=== PATIENT | female | born 1950 | race Caucasian/White ===

== ENCOUNTER 2019-05-27 06:00 | Outpatient (RCR) | payer OTHER, SELFPAY | END 2019-06-26 00:01 | LOC: APT 06:00 | PROVIDERS: Family Provider Nurse Practitioner; Visit Provider Nurse Practitioner Family | DX: R29.6 Repeated falls (principal) | CPT/HCPCS: 97110; 97530 ==

== ENCOUNTER 2019-06-27 06:00 | Outpatient (RCR) | payer OTHER, SELFPAY | END 2019-07-27 23:59 | disposition home or self-care (01) | LOC: APT 06:00 | PROVIDERS: Family Provider Nurse Practitioner; PCP Nurse Practitioner; Visit Provider Nurse Practitioner Family | DX: R29.6 Repeated falls (principal) ==

== ENCOUNTER → 2020-01-28 14:58 | Outpatient (BNVA) | payer OTHER, SELFPAY | PROVIDERS: Family Provider Nurse Practitioner; PCP Nurse Practitioner; Visit Provider Nurse Practitioner Family | DX: I10 Essential (primary) hypertension (principal); E78.5 Hyperlipidemia, unspecified; J44.9 Chronic obstructive pulmonary disease, unspecified; R05 Cough; K21.9 Gastro-esophageal reflux disease without esophagitis; F41.9 Anxiety disorder, unspecified; F32.9 Major depressive disorder, single episode, unspecified | CPT/HCPCS: 71046; 80053; 80061; 84443; 85025 ==

== ENCOUNTER 2020-02-06 10:18 | Outpatient (CLI) | payer OTHER, SELFPAY ==
--- NOTE | 2020-02-06 11:00 | CT_ITS ---
WS: [id number] CT scan of the chest without IV contrast, additional two-dimensional coronal and sagittal reconstruct ion was performed. 02/06/2020 Clinical Data: cough, interstitial prominence Comparison: PA and lateral chest, 01/28/2020. DLP: 957.[address] scans at [facility] use at least one of these dose optimization techniques: automat ed exposure control; mA and/or kV adjustment per patient size (includes targeted exams where dose is matched to clinical indication); or iterative reconstruction. Findings: No nodules, masses or effusions are seen. The heart size is normal with no pericardial effusion. The pulmonary arterial system and thoracic aorta demonstrate no abnormalities or dilatations. There is no axillary or significant mediastinal adenopathy. There is an intramedullary rasta in the left humerus. There is a kyphosis and moderate degenerative change of the thoracic spine. The upper abdomen is not remarkable. CT/CT chest wo con [id number] Impression: Negative for acute cardiopulmonary disease.
== END 2020-02-06 10:19 | disposition home or self-care (01) ==
LOC: RADWPI 10:31
PROVIDERS: Family Provider Nurse Practitioner; PCP Nurse Practitioner; Visit Provider Nurse Practitioner Family
DX: R05 Cough (principal); J84.9 Interstitial pulmonary disease, unspecified
CPT/HCPCS: 71250

== ENCOUNTER 2020-10-27 15:20 | Emergency (ER) | payer OTHER, SELFPAY ==
[2020-10-27 15:22] VITALS: BP 144/71; PULSE 72; RESP 16; O2SAT 95
--- NOTE | 2020-10-27 15:35 | ED_ITS ---
HPI - Weakness General: Chief complaint: Weakness Stated complaint: left leg injury recent falls Time Seen by Provider: 10/27/20 15:34 History of Present Illness: HPI Narrative: Patient was referred to the ER because of persistent left lower leg pain making it difficult for patient to transfer. Patient had been evaluated in [place] at a medical facility there for the same problem but nothing was found out to be wrong. Caregiver reports that he felt there was maybe a broken bone there that was not found when patient was at [place]. Patient has dementia. Patient is a very poor historian. No obvious deformity is noted to the extremity. Review of Systems General: Reports: 10 or more systems reviewed and unremarkable except in HPI and below Musc: Reports: other (Left lower leg pain, difficulty transferring) [facility] ED PFSH: Medical History (Updated 10/27/20 @ 16:48 by KIRSTIN Lam) Acid reflux Anxiety and depression Benign essential hypertension COPD, moderate Dyslipidemia Surgical History Hx of total hysterectomy Social History Smoking and tobacco status: former smoker Alcohol intake: never Lives independently: Yes Household members: spouse Housing: House Marital status: History of recent travel: No Physical Exam Const: COMMON NORMALS: no acute distress and patient oriented x3 GENERAL APPEARANCE: cooperative HENMT: COMMON NORMALS: normocephalic and Normal external nose present HEAD & SCALP: normal to inspection and normocephalic NOSE: Normal external nose present MOUTH: Normal oral and palatal mucosa present Eye: GENERAL EYE: appearance normal, both eyes and all related structures Neck/C-Spine: COMMON NORMALS: full ROM Chest: COMMONS NORMALS: normal inspection of the chest Resp: COMMON NORMALS: normal respiratory effort EFFORT & INSPECTION: Yes able to speak in complete sentences Cardio: COMMON NORMALS: regular rate and regular rhythm RATE: regular rate RHYTHM: regular rhythm GI: COMMON NORMALS: non-tender : COMMON NORMALS: Yes no CVA tenderness BLADDER/KIDNEY EXAM: Yes no CVA tenderness Back/Pelvis: COMMON NORMALS: no CVA tenderness and thoracic and lumbar spine normal to inspection Extremity: NARRATIVE EXTREMITY EXAM: Tenderness noted to the left knee. Normal range of motion of extremities noted. Some pain is elicited with range of motion. Neuro: COMMON NORMALS: patient oriented x3 and moves all extremities Psych: COMMON NORMALS: mental status grossly normal and cooperative Skin: COMMON NORMALS: no rashes or lesions noted GENERAL SKIN EXAM: no rashes or lesions noted Course Vital Signs: Vital signs: Vital Signs Pulse Rate 72 10/27/20 15:22 Respiratory Rate 16 10/27/20 15:22 Blood Pressure 144/71 10/27/20 15:22 Pulse Oximetry 95 10/27/20 15:22 MDM - Weakness MDM Narrative: Medical decision making narrative: Patient was brought in by EMS for concerns of persistent leg pain with difficulty with transferring the patient. On examination of patient it was noted that patient's left knee was painful to touch with minimal swelling. Differential diagnosis includes fracture, contusion, sprain. X-ray of the hip and knee noted a proximal fracture of the fibula. A tib-fib x-ray was then added and noted a distal fracture of the fibula. Reviewed exam with caregiver with recommendations for splinting of extremity for protection of the fracture with follow-up to orthopedics. Family reports understanding and agreed to plan. Discharge Plan Discharge Patient Disposition: Home Clinical Impression: Closed fibular fracture Qualifiers: Encounter type: initial encounter Fibula location: distal Fracture morphology: unspecified fracture morphology Laterality: left Qualified Code(s): S82.832A - Other fracture of upper and lower end of left fibula, initial encounter for closed fracture Condition: Stable Prescriptions: No Action albuterol sulfate [ProAir HFA] 90 mcg/actuation HFA aerosol inhaler 2 puff INHALATION Q4H PRN (Reason: shortness of breath or wheezing) 90 Days Qty: 3 RF: 1 budesonide-formoterol [Symbicort] 160-4.5 mcg/actuation HFA aerosol inhaler 2 puff INHALATION BID 90 Days Qty: 3 RF: 1 famotidine 20 mg tablet 20 mg PO DAILY 90 Days Qty: 90 RF: 1 hydrochlorothiazide 25 mg tablet 25 mg PO DAILY 90 Days Qty: 90 RF: 1 lisinopril 10 mg tablet 10 mg PO BID 90 Days Qty: 180 RF: 1 lovastatin 20 mg tablet 20 mg PO DAILY 90 Days Qty: 90 RF: 1 sertraline [Zoloft] 100 mg tablet 200 mg PO DAILY 90 Days Qty: 180 RF: 1 potassium chloride 10 mEq Tablet Extended Release 20 meq PO BID RF: 0 cephalexin 500 mg Tablet 500 mg PO Q6H RF: 0 Discharge Orders: Discharge ED (Routine); Ordered 10/27/20 Ordered By: Tyron Kendall Referrals: Misty Brandt, HELP DESK CONSULTANT-C [Primary Care Provider] - Discharge Diet: Usual diet Discharge Activity: Limit activity as instructed Patient Instructions: Leg Fracture (ED), Opioid Safety Activity Restrictions/Additional Instructions: Home and rest. Activity as tolerated. Keep splint clean and dry. Case management will contact you regarding follow-up appointment with orthopedics. Patient may do light weightbearing activities with leg when transferring from bed to chair, or chair to chair. Patient should follow-up in 1 week. Return to the ER as needed for new concerns. Coding Level of Care Code ED Finance Effectiveness Manager for Drake Fwd Exam Comprehensive
--- NOTE | 2020-10-27 15:39 | XRR_ITS ---
PROCEDURE INFORMATION: Exam: XR Left Knee Exam date and time: 10/27/2020 3:41 PM Age: 69 years old Clinical indication: Pain and injury or trauma; Fall; Blunt trauma; Knee; Left; Additional info: Fall, pain TECHNIQUE: Imaging protocol: XR Left knee. Views: 3 views. COMPARISON: No relevant prior studies available. FINDINGS: Bones/joints: Acute fracture of the proximal fibular diaphysis. No displacement. Cannot exclude an additional fracture of the fibula epiphysis. Proximal tibia appears intact. Distal femur intact. Bones are demineralized. Unremarkable joint alignment. Small osteophytes medial compartment. Mild severity joint space loss diffusely. Negative for effusion. Soft tissues: Normal. XR/XR knee LT 3V* [id number] IMPRESSION: Acute, nondisplaced proximal fibula diaphyseal fracture. A 2nd fracture in the proximal epiphysis cannot be excluded.
--- NOTE | 2020-10-27 15:39 | XRR_ITS ---
PROCEDURE INFORMATION: Exam: XR Left Hip Exam date and time: 10/27/2020 3:41 PM Age: 69 years old Clinical indication: Pain and injury or trauma; Fall; Blunt trauma (contusions or hematomas); Hip pain; Left hip; Additional info: Fall, pain TECHNIQUE: Imaging protocol: XR Left hip. Views: 2 or 3 views hip with pelvis when performed. COMPARISON: CT abdomen pelvis w con* [id number] 11/23/2018 6:38 PM FINDINGS: Bones/joints: Unremarkable. No acute fracture. Unremarkable joint alignment. 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 Soft tissues: Unremarkable. XR/XR hip LT 2-3V wo/w pel* [id number] IMPRESSION: No acute findings.
--- NOTE | 2020-10-27 16:07 | XRR_ITS ---
PROCEDURE INFORMATION: Exam: XR Left Tibia and Fibula Exam date and time: 10/27/2020 4:18 PM Age: 69 years old Clinical indication: Condition or disease; Other: Fracture fibula TECHNIQUE: Imaging protocol: XR Left tibia and fibula. Views: 2 views. COMPARISON: CR XR knee LT 3V* [id number] 10/27/2020 3:39 PM FINDINGS: Bones/joints: Nondisplaced proximal fibula diaphyseal fracture. Mildly displaced obliquely oriented distal fibular diametaphyseal fracture. Bones are mildly demineralized diffusely. No acute fracture in the tibia. [id number] osteoarthritis changes in the medial compartment of the right knee joint. Knee joint alignment anatomic. Ankle mortise alignment anatomic. Soft tissues: Unremarkable. XR/XR tibia fibula LT 2V [id number] IMPRESSION: Acute fractures involving both the proximal fibula and the distal fibula.
[2020-10-27 17:39] VITALS: BP 124/77; PULSE 76; RESP 16; O2SAT 95
--- NOTE | 2020-11-04 14:12 | DCPLANNER ---
Patient is to follow up with ortho, patient had a follow up appointment scheduled for 10.31.20 - patient did attend appointment.
== END 2020-10-27 17:44 | disposition home or self-care (01) ==
PROVIDERS: Emergency Provider Nurse Practitioner Family; PCP Nurse Practitioner
DX: S82.832A Other fracture of upper and lower end of left fibula, initial encounter for closed fracture (principal); I10 Essential (primary) hypertension; J44.9 Chronic obstructive pulmonary disease, unspecified; E78.5 Hyperlipidemia, unspecified; Z87.891 Personal history of nicotine dependence; W19.XXXA Unspecified fall, initial encounter
CPT/HCPCS: 29505; 73502; 73562; 73590; 99283

== ENCOUNTER 2020-10-31 13:12 | Outpatient (CLI) | payer OTHER, SELFPAY | END 2020-10-31 13:13 | disposition home or self-care (01) | LOC: SPT 13:13 | PROVIDERS: PCP Nurse Practitioner; Visit Provider Orthopaedic Surgery | DX: Z46.89 Encounter for fitting and adjustment of other specified devices (principal); S82.832S Other fracture of upper and lower end of left fibula, sequela; X58.XXXS Exposure to other specified factors, sequela | CPT/HCPCS: 97760; L4361 ==

== ENCOUNTER 2020-11-06 13:38 | Inpatient (IN) | payer OTHER, SELFPAY ==
[2020-11-06] VITALS (7 sets, daily range): BP systolic 127–135; BP diastolic 64–84; PULSE 70–94; RESP 14–18; TEMP 36.2–36.6; O2SAT 93–98; BMI 23.3
--- NOTE | 2020-11-06 14:13 | XR_ITS ---
WS: [id number] Portable AP upright chest, 11/06/2020 Clinical Data: reduced breath sounds Comparison: PA and lateral chest, 01/28/2020. Findings: No nodules, masses or effusions are seen. The heart is normal. The pulmonary vascularity is not increased. No pneumonia or pneumothorax is seen. The aortic arch and descending aorta are tortuo us. There is an intramedullary rasta in the proximal left humerus. XR/XR chest 1V portable [id number] Impression: Atherosclerosis.
--- NOTE | 2020-11-06 14:14 | ECG_ITS ---
[facility] Test Date: 2020-11-06 Pat Name: Zuleima Morejon Department: Room: Gender: Female Visual Education Teacher: : 1950 Requested By: Michael Phillips Order Number: [id number] Adeline MD: Chester Black M.D. Measurements Intervals [place] Rate: 97 P: NE: QRS: 24 QRSD: 82 T: 268 QT: 287 QTc: 365 Interpretive Statements Wandering pacemaker NONSPECIFIC ST & T-WAVE ABNORMALITY Compared to ECG 11/23/2018 22:35:20 Sinus rhythm no longer present T-wave abnormality still present Electronically Signed On 11-06-2020 19:24:52 CDT by Chester Black M.D. [id number]
--- NOTE | 2020-11-06 15:10 | PC.PHAR ---
Addendum entered by Fabiola Baron 11/06/20 15:21: I HEARD BACK FROM [facility]. CLEMENTINE, FROM [facility] VERBALLY CONFIRMED ALL THE MEDICATIONS ON THE PT.S LIST. IT WAS EXACTLY WHAT WE HAD IN OUR CHART. THEY WERE ALL RECENTLY FILLED. Original Note: PT IS UNABLE TO CONFIRM HER MEDICATION LIST. I TRIED TO CALL A FAMILY MEMBER WHO HELPS HER WITH HER MEDICATION, BUT WAS UNABLE TO REACH HER. HER VOICEMAIL IS NOT SET UP, SO I COULD NOT LEAVE A MESSAGE. THE PT HAS [facility] INSURANCE. I CALLED THEM, BUT THEY HAVE TO CALL ME BACK. I AM WAITING FOR THAT CALL. IN THE MEANTIME, I PUT HER MEDICATIONS ACCORDING TO HER MEDICATION HISTORY AND HER PHARMACY LIST.
[2020-11-06 15:15] LABS: Basophils % 0.4 %; Eosinophils % 0.1 %; Hematocrit 34.6 % (37.0-47.0); Hemoglobin 10.9 g/dL (11.5-15.3); Lymphocytes # 0.7 10^3/uL (0.8-4.8); Lymphocytes % 6.5 %; Mean Corpuscular HGB Conc 31.5 g/dL (30.0-36.0); Mean Corpuscular Hemoglobin 29.9 pg (28.0-34.0); Mean Corpuscular Volume 94.8 fL (81-99); Mean Platelet Volume 9.9 fL (7.4-10.4); Monocytes # 0.9 10^3/uL (0.2-0.9); Monocytes % 8.1 %; Neutrophils # 9.37 10^3/uL (1.8-7.7); Neutrophils % 84.4 %; Nucleated Red Blood Cells % 0 %; Platelet Count 317 10^3/cmm (130-400); Red Blood Count 3.65 10^6/uL (4.1-5.3); Red Cell Distribution Width 13.3 % (12.1-15.1); White Blood Count 11.1 10^3/uL (4.0-10.0)
[2020-11-06 15:18] LABS: Add Urine Microscopic? YES; Bilirubin Urine Neg (Negative); Blood Urine 3+ (Negative); Glucose Urine UA Norm (Normal); Ketones Urine Negative (Negative); Leukocyte Esterase Urine Trace (Negative); Nitrate Urine Negative (Negative); Protein Urine Neg (Negative); Urine Appearance Hazy (CLEAR); Urine Color Yellow (Yellow); Urobilinogen Urine 1 mg/dL (Negative); pH Urine 7 (5-7)
[2020-11-06 15:19] LABS: Bacteria Urine 2+ /hpf; Mucus Urine 1+ /hpf; WBC Urine 0-4 /hpf (0-5)
[2020-11-06 15:20] LABS: Add Urine Culture? No
--- NOTE | 2020-11-06 15:36 | DCPLANNER ---
manager configuration was asked about senior care placement for patient. Patient has insurance, this will not pay for patient to go to senior care. manager configuration explained this to patient and family, and told patient and family that in order for patient to go to senior care that patient would need to private pay for senior care. Patients family stated that they would not be able to private pay for senior care placement. manager configuration told family that pillowcase maker would contact Rommel Oliver about helping patient fill out medicaid paperwork, and that there was someone else that pillowcase maker would contact to help patient with medicare paperwork. manager configuration emailed Rommel Oliver and asked if he would contact patient and help with medicaid paperwork.
[2020-11-06 15:47] LABS: Lactate (Lactic Acid level) 1.6 mmol/L (0.5-2.2)
--- NOTE | 2020-11-06 16:04 | ED_ITS ---
HPI - Weakness General: Chief complaint: Weakness Stated complaint: GENERALIZED WEAKNESS/ LEG PAIN Time Seen by Provider: 11/06/20 13:57 History of Present Illness: HPI Narrative: The patient is a 69-year-old female with past medical history COPD, hypertension and left ankle fracture on October 27 who comes to the ER brought by family because she is not taking care of herself. She was placed in a walking boot and told to walk on it. Family says that she refuses to get out of bed and has been urinating and defecating on herself and has not gotten out of bed for days. They want her admitted to a care home. She offers no complaints in the ED other than her left leg pain. Complaint: generalized weakness and lack of energy Onset (ago): day(s) () Location: LLE Migration: none Severity: moderate Quality: sharp Relieving factors: rest Exacerbating factors: movement Context: trauma/injury Associated symptoms: Reports no associated symptoms; Denies chest pain, confusion or headache(s) Review of Systems General: Reports: 10 or more systems reviewed and unremarkable except in HPI and below Const: Denies: fatigue Eyes: Denies: change in vision, blurry vision or eye redness ENMT: Denies: throat pain, swelling of lips/tongue, ear or mastoid pain or nasal congestion Card: Denies: chest pain, palpitations, irregular heart rhythm, edema, dyspnea on exertion or orthopnea Resp: Denies: dyspnea, productive cough or non-productive cough GI: Denies: abdominal pain, diarrhea or GI cramping : Denies: flank pain, difficulty voiding, urinary frequency or urinary urgency Musc: Reports: extremity pain and joint pain; Denies: neck pain, back pain, joint redness, limited range of motion or muscle weakness Skin/Breast: Denies: rash, pruritus, erythema, skin pain or skin tenderness Neuro: Denies: headache(s), numbness in extremities, weakness in extremities, sensory changes, difficulty walking, dizziness, confusion or Slurred speech present Psych: Denies: anxiety or depression Endo: Denies: polyuria All/Imm: Denies: urticaria, throat swelling or tongue swelling PFSH ED PFSH: Medical History (Updated 11/06/20 @ 21:39 by Michael Phillips MD) Acid reflux Anxiety and depression Benign essential hypertension COPD, moderate Dyslipidemia Surgical History Hx of total hysterectomy Social History (Updated 11/06/20 @ 19:42 by Amber Bowman MD) Smoking and tobacco status: former smoker Second hand smoke exposure: Yes Alcohol intake: never Substance/Drug Use: never Caregiver/support person: No Marital status: History of recent travel: No Physical Exam Const: COMMON NORMALS: no acute distress, average body habitus, patient oriented x3, no limitations, healthy appearing, alert and well nourished GENERAL APPEARANCE: cooperative, comfortable, well kempt and well developed ORIENTATION/CONSCIOUSNESS: Yes awake, Yes oriented to person, Yes oriented to place and Yes oriented to time HENMT: COMMON NORMALS: normocephalic, external ears normal and Normal external nose present HEAD & SCALP: normal to inspection and normocephalic NOSE: Normal external nose present EXTERNAL EAR: Yes external ears normal MOUTH: Normal oral and palatal mucosa present THROAT: posterior oropharynx normal Eye: COMMON NORMALS: Equal, round and reactive pupils present and EOMs intact bilaterally GENERAL EYE: appearance normal, both eyes and all related structures PUPIL: Yes Equal, round and reactive pupils present Neck/C-Spine: COMMON NORMALS: full ROM, no lymphadenopathy, no meningeal signs and no JVD GENERAL: Yes normal visual inspection Lymph: LYMPHATIC: no lymphadenopathy noted Chest: COMMONS NORMALS: normal inspection of the chest and normal palpation of entire chest wall Resp: COMMON NORMALS: normal respiratory effort, No retractions, No use of accessory muscles, clear to auscultation bilaterally and percussion normal EFFORT & INSPECTION: Yes able to speak in complete sentences AUSCULTATION: clear to auscultation bilaterally PERCUSSION: percussion normal Cardio: COMMON NORMALS: no JVD, regular rate, S1 normal heart sound present, S2 normal heart sound present and Peripheral pulses 2+ throughout RATE: regular rate RHYTHM: abnormal rhythm irregularly irregular HEART SOUNDS: S1 normal heart sound present and S2 normal heart sound present PERIPHERAL PULSES: Peripheral pulses 2+ throughout GI: COMMON NORMALS: Normal to inspection, nondistended, normoactive bowel sounds present, Soft to palpation, non-tender and no masses INSPECTION: Yes normal to inspection PALPATION: Yes Soft to palpation : COMMON NORMALS: Yes no CVA tenderness BLADDER/KIDNEY EXAM: Yes no CVA tenderness Back/Pelvis: COMMON NORMALS: no CVA tenderness, thoracic and lumbar spine normal to inspection, no thoracic nor lumbar tenderness and thoraco-lumbar ROM normal Extremity: COMMON NORMALS: normal to inspection, full ROM, capillary refill normal, no joint enlargement and no pedal edema NARRATIVE EXTREMITY EXAM: Left lower extremity wearing a walking boot. GENERAL: Yes normal exam except as noted Neuro: COMMON NORMALS: patient oriented x3, CN's II-XII intact bilaterally, moves all extremities, no focal motor deficits, no sensory deficits noted and gait normal SENSORIUM/ORIENTATION: Yes alert, Yes oriented to person, Yes oriented to place and Yes oriented to time MENINGEAL SIGNS: Yes no meningeal signs Psych: COMMON NORMALS: mental status grossly normal, Normal thought process present, cooperative, normal affect and speech normal APPEARANCE: Yes well kempt ATTITUDE: Yes calm SPEECH: Yes normal speech THOUGHT PROCESS: Normal thought process present Skin: COMMON NORMALS: no rashes or lesions noted GENERAL SKIN EXAM: no rashes or lesions noted Course Vital Signs: Vital signs: Vital Signs Temperature 98 F 11/06/20 21:01 Pulse Rate 85 11/06/20 21:01 Respiratory Rate 14 11/06/20 21:01 Blood Pressure 128/70 11/06/20 21:01 Pulse Oximetry 95 11/06/20 21:01 MDM - Weakness MDM Narrative: Medical decision making narrative: The patient had a fracture of her left ankle 10 days ago and has since been unable to get out of bed and take care of herself. She is urinating and defecating on herself. She is mildly dehydrated as well in the ER with hypokalemia as well. Discussed with Dr. Jhaveri we will keep her observation overnight for treatment of these problems. Lab Data: Labs: Lab Results 11/06/20 11/06/20 11/06/20 Range/Units 14:45 15:11 15:11 WBC 11.1 H (4.0-10.0) 10^3/ uL RBC 3.65 L (4.1-5.3) 10^6/u L Hgb 10.9 L (11.5-15.3) g/dL Hct 34.6 L (37.0-47.0) % MCV 94.8 (81-99) fL MCH 29.9 (28.0-34.0) pg MCHC 31.5 (30.0-36.0) g/dL RDW 13.3 (12.1-15.1) % Plt Count 317 (130-400) 10^3/c mm MPV 9.9 (7.4-10.4) fL Neut % (Auto) 84.4 % Lymph % (Auto) 6.5 % [place] % (Auto) 8.1 % Eos % (Auto) 0.1 % Baso % (Auto) 0.4 % Neut # (Auto) 9.37 H (1.8-7.7) 10^3/u L Lymph # (Auto) 0.7 L (0.8-4.8) 10^3/u L [place] # (Auto) 0.9 (0.2-0.9) 10^3/u L Eos # (Auto) 0.0 (0.0-0.8) 10^3/u L Baso # (Auto) 0.0 (0.0-0.1) 10^3/u L Nucleated RBC % (a uto) 0 % Nucleated RBCs # 0.0 /100WBC D-Dimer Sodium Cancelled Potassium Cancelled Chloride Cancelled Carbon Dioxide Cancelled Anion Gap Cancelled BUN Cancelled Creatinine Cancelled GFR Calculation Cancelled Glucose Cancelled Calculated Osmolal ity Cancelled Lactate (0.5-2.2) mmol/L Calcium Cancelled Total Bilirubin Cancelled AST Cancelled ALT Cancelled Alkaline Phosphata se Cancelled Creatine Kinase Cancelled Troponin T Baselin e NT-Pro-B Natriuret Pep Cancelled Total Protein Cancelled Albumin Cancelled Globulin Cancelled Urine Color Yellow (Yellow) Urine Appearance Hazy A (CLEAR) Urine pH 7 (5-7) Ur Specific Gravit y 1.010 (1.005-1.030) Urine Protein Neg (Negative) Urine Glucose (UA) Norm (Normal) Urine Ketones Negative (Negative) Urine Blood 3+ H (Negative) Urine Nitrate Negative (Negative) Urine Bilirubin Neg (Negative) Urine Urobilinogen 1 H (Negative) mg/dL Ur Leukocyte Janki ase Trace H (Negative) Urine RBC 5-10 H (0-2) /hpf Urine WBC 0-4 H (0-5) /hpf Ur Squamous Epith Cells 10-15 H (0-5) /hpf Amorphous Sediment Not Reportable Urine Bacteria 2+ H (NONE) /hpf Urine Mucus 1+ /hpf 11/06/20 11/06/20 11/06/20 Range/Units 15:11 15:11 15:11 WBC (4.0-10.0) 10^3/ uL RBC (4.1-5.3) 10^6/u L Hgb (11.5-15.3) g/dL Hct (37.0-47.0) % MCV (81-99) fL MCH (28.0-34.0) pg MCHC (30.0-36.0) g/dL RDW (12.1-15.1) % Plt Count (130-400) 10^3/c mm MPV (7.4-10.4) fL Neut % (Auto) % Lymph % (Auto) % [place] % (Auto) % Eos % (Auto) % Baso % (Auto) % Neut # (Auto) (1.8-7.7) 10^3/u L Lymph # (Auto) (0.8-4.8) 10^3/u L [place] # (Auto) (0.2-0.9) 10^3/u L Eos # (Auto) (0.0-0.8) 10^3/u L Baso # (Auto) (0.0-0.1) 10^3/u L Nucleated RBC % (a uto) % Nucleated RBCs # /100WBC D-Dimer Cancelled Sodium Potassium Chloride Carbon Dioxide Anion Gap BUN Creatinine GFR Calculation Glucose Calculated Osmolal ity Lactate 1.6 (0.5-2.2) mmol/L Calcium Total Bilirubin AST ALT Alkaline Phosphata se Creatine Kinase Troponin T Baselin e Cancelled NT-Pro-B Natriuret Pep Total Protein Albumin Globulin Urine Color (Yellow) Urine Appearance (CLEAR) Urine pH (5-7) Ur Specific Gravit y (1.005-1.030) Urine Protein (Negative) Urine Glucose (UA) (Normal) Urine Ketones (Negative) Urine Blood (Negative) Urine Nitrate (Negative) Urine Bilirubin (Negative) Urine Urobilinogen (Negative) mg/dL Ur Leukocyte Janki ase (Negative) Urine RBC (0-2) /hpf Urine WBC (0-5) /hpf Ur Squamous Epith Cells (0-5) /hpf Amorphous Sediment Urine Bacteria (NONE) /hpf Urine Mucus /hpf 11/06/20 11/06/20 Range/Units 16:20 16:20 WBC (4.0-10.0) 10^3/ uL RBC (4.1-5.3) 10^6/u L Hgb (11.5-15.3) g/dL Hct (37.0-47.0) % MCV (81-99) fL MCH (28.0-34.0) pg MCHC (30.0-36.0) g/dL RDW (12.1-15.1) % Plt Count (130-400) 10^3/c mm MPV (7.4-10.4) fL Neut % (Auto) % Lymph % (Auto) % [place] % (Auto) % Eos % (Auto) % Baso % (Auto) % Neut # (Auto) (1.8-7.7) 10^3/u L Lymph # (Auto) (0.8-4.8) 10^3/u L [place] # (Auto) (0.2-0.9) 10^3/u L Eos # (Auto) (0.0-0.8) 10^3/u L Baso # (Auto) (0.0-0.1) 10^3/u L Nucleated RBC % (a uto) % Nucleated RBCs # /100WBC D-Dimer Sodium 142 Potassium 2.9 L Chloride 99 Carbon Dioxide 32 H Anion Gap 13.9 BUN 13 Creatinine 0.6 GFR Calculation Not Reportable Glucose 91 Calculated Osmolal ity 294 Lactate (0.5-2.2) mmol/L Calcium 8.1 L Total Bilirubin 0.7 AST 16 ALT 16 Alkaline Phosphata se 188 H Creatine Kinase 50 Troponin T Baselin e 41 H NT-Pro-B Natriuret Pep Total Protein 5.9 L Albumin 3.4 L Globulin 2.5 Urine Color (Yellow) Urine Appearance (CLEAR) Urine pH (5-7) Ur Specific Gravit y (1.005-1.030) Urine Protein (Negative) Urine Glucose (UA) (Normal) Urine Ketones (Negative) Urine Blood (Negative) Urine Nitrate (Negative) Urine Bilirubin (Negative) Urine Urobilinogen (Negative) mg/dL Ur Leukocyte Janki ase (Negative) Urine RBC (0-2) /hpf Urine WBC (0-5) /hpf Ur Squamous Epith Cells (0-5) /hpf Amorphous Sediment Urine Bacteria (NONE) /hpf Urine Mucus /hpf Discharge Plan Discharge Patient Disposition: Admitted As Inpatient Admit Provider: Amber Bowman Clinical Impression: Hypokalemia, Abnormal urinalysis, Fracture of left ankle, lateral malleolus, Dehydration, Unable to care for self Condition: Stable Coding Level of Care Code ED Supervisor Reclamation for Chg Fwd Exam Comprehensive
--- NOTE | 2020-11-06 16:14 | ECG_ITS ---
[facility] Test Date: 2020-11-06 Pat Name: Zuleima Morejon Department: Room: Gender: Female Change Release Manager: : 1950 Requested By: Michael Phililps Order Number: [id number] Adeline MD: Chester Black M.D. Measurements Intervals [place] Rate: 104 P: CT: QRS: 24 QRSD: 68 T: -8 QT: 344 QTc: 453 Interpretive Statements Multi focal atrial tachycardia SEPTAL MYOCARDIAL INFARCTION , OF INDETERMINATE AGE [40+ ms Q WAVE IN V1/V2] Compared to ECG 11/06/2020 14:42:14 Myocardial infarct finding now present T-wave abnormality no longer present Electronically Signed On 11-06-2020 19:28:36 CDT by Chester Black M.D. [id number]
[2020-11-06 17:12] LABS: Alanine Aminotransferase 16 U/L (0-33); Albumin Level 3.4 g/dL (3.5-5.2); Alkaline Phosphatase 188 IU/L (35-105); Blood Urea Nitrogen 13 mg/dL (8-23); Calcium 8.1 mg/dL (8.5-10.5); Carbon Dioxide 32 mmol/L (22-29); Chloride 99 mmol/L (98-107); Creatine Phosphokinase 50 U/L (26-192); Creatinine Clr Calc Pharmacy 60.6877; Globulin 2.5 g/dL (1.3-4.6); Glucose 91 mg/dL (65-115); Osmolality Calculated 294 mOsm/kg (285-295); Sodium 142 mmol/L (136-145); Total Bilirubin 0.7 mg/dL (0.15-1.2); Total Protein 5.9 g/dL (6.6-8.7); Troponin(5th) Baseline 41 ng/L (0-10)
[2020-11-06 17:13] LABS: Anion Gap 13.9 (5-19)
[2020-11-06 17:14] LABS: Aspartate Amino Transferase 16 U/L (0-32); Potassium 2.9 mmol/L (3.5-5.1)
--- NOTE | 2020-11-06 19:37 | P.HP_ITS ---
Providers/Chief Complaint Admitting Physician: Amber Bowman MD Primary Care Provider: KIRSTIN Webb-Re Chief Complaint: GENERALIZED WEAKNESS/ LEG PAIN History of Present Illness Zuleima Morejon is a 69 year old female who was brought into the emergency room because she has not been getting out of bed and taking care of herself. A week and a half ago or so she had a fall and sustained distal and proximal fibula fractures to the left lower extremity. She followed up with orthopedics and was placed in a cam boot with weightbearing as tolerated. She states that any attempt at weightbearing is painful. She has not been getting up. She was evidently found covered in feces and urine. She is unable to give me an explanation as to why she does not try to get up. Reviewing some records she has had some difficulty with her gait at baseline. She does have a bedside com mode. She says that it has been too hard to even get up to that. She does describe some intermittent difficulty breathing and cough as well as chest pain but is nonspecific when it comes to the details. Not currently having chest pain. Her smoked but she said she does not smoke. Records from primary care provider indicate former tobacco use. She does carry a diagnosis of COPD. She has continued taking her medications from what she shares. Work-up in the emergency room revealed clinical evidence of some dehydration, low potassium level, elevated baseline troponin. She required bathing in the emergency room and it was clear that she was has not been caring for herself. She received some potassium replacement is being admitted for further evaluation and treatment. There is some family or friend nearby but they are unable to help her. She cannot state anybody who can help her at home. She denies any reinjury to the leg and reported compliance with wearing her boot. Review of Systems Const: Reports: change in appetite and change in weight (Weight loss); Denies: fever(s) Eyes: Denies: change in vision ENMT: Denies: throat pain or nasal congestion Card: Reports: chest pain (Sometimes, not specific); Denies: palpitations Resp: Reports: dyspnea and productive cough (Sometimes) GI: Reports: diarrhea; Denies: abdominal pain, nausea, vomiting, constipation, hematochezia or melena : Reports: urinary incontinence; Denies: difficulty voiding Musc: Reports: extremity pain and decrease in muscle mass Skin/Breast: Denies: pruritus or sores Neuro: Reports: weakness in extremities and difficulty walking; Denies: headache(s) Psych: Reports: anxiety and memory loss Kaleb/Lymph: Denies: easy bruising or easy bleeding Medications/Allergies Home Medications Medication Instructions Recorded Confirmed Last Taken Type albuterol sulfate 90 mcg/actuation 2 puff INHALATION Q4H PRN 90 Days 08/21/20 11/06/20 Unknown Rx aerosol inhaler #3 each budesonide-formoterol HFA 160 2 puff INHALATION BID 90 Days #3 08/21/20 11/06/20 Unknown Rx mcg-4.5 mcg/actuation aerosol each inhaler famotidine 20 mg tablet 20 mg PO DAILY 90 Days #90 tab 08/21/20 11/06/20 Unknown Rx hydrochlorothiazide 25 mg tablet 25 mg PO DAILY 90 Days #90 tab 08/21/20 11/06/20 Unknown Rx lisinopril 10 mg tablet 10 mg PO BID 90 Days #180 tab 08/21/20 11/06/20 Unknown Rx lovastatin 20 mg tablet 20 mg PO DAILY 90 Days #90 tab 08/21/20 11/06/20 Unknown Rx sertraline 100 mg tablet 200 mg PO DAILY 90 Days #180 tab 08/21/20 11/06/20 Unknown Rx potassium chloride 20 meq PO BID 10/27/20 11/06/20 Unknown History CAM WALKER #1 ea 10/31/20 11/06/20 Unknown Rx Allergies Allergy/AdvReac Type Severity Reaction Status Date / Time morphine Allergy ADR-Itching Verified 10/31/20 10:33 Additional Medication Information I personally reviewed home medication list and medications received day of admission thus far. PFSH Acute PFSH: Medical History (Updated 11/06/20 @ 20:08 by Amber Bowman MD) Acid reflux Anxiety and depression Benign essential hypertension COPD, moderate Dyslipidemia Surgical History Hx of total hysterectomy Social History (Updated 11/06/20 @ 19:42 by Amber Bowman MD) Smoking and tobacco status: former smoker Second hand smoke exposure: Yes Alcohol intake: never Substance/Drug Use: never Caregiver/support person: No Marital status: History of recent travel: No Female Reproductive History: : 3 Para: 3 Supplemental PFSH Information: Patient does not report any family history when asked Vitals/I&O/Wt Last Vital Signs Pulse 88 11/06/20 18:30 Resp 18 11/06/20 18:30 BP 130/74 11/06/20 18:30 Pulse Ox 98 11/06/20 18:30 Weight last 48 hrs Weight 63.503 kg Physical Exam Narrative: EXAM NARRATIVE: Constitutional: Disheveled, appears hard of hearing, obese HEENT: Bitemporal wasting and slightly sunken cheeks, extraocular movements are intact, dry mucous membranes, 1 broken off tooth left in the upper gum otherwise edentulous, clear rhinorrhea at the nose, facial hair Neck: Supple Respiratory: Scattered wheezes, no accessory muscle use noted Cardiovascular: Regular rate and rhythm, distant heart sounds, 1+ pulses feet a nd wrists Abdomen: Soft, nontender, no masses, positive bowel sounds : Erythema Extremities: No pitting edema Skin: Skin is dry, discoloration noted to fingernails, has some smudges on her face and arms, lower extremities have been recently cleaned Neuro: Speech is clear, face is symmetric, moves all extremities with equal handgrip, no tremor Psych: Oriented to person and place but not entirely to situation, flat affect Data : 11/06/20 15:11 11/06/20 16:20 Other data: Laboratory Results WBC 11.1 10^3/uL (4.0-10.0) H 11/06/20 15:11 RBC 3.65 10^6/uL (4.1-5.3) L 11/06/20 15:11 Hgb 10.9 g/dL (11.5-15.3) L 11/06/20 15:11 Hct 34.6 % (37.0-47.0) L 11/06/20 15:11 MCV 94.8 fL (81-99) 11/06/20 15:11 MCH 29.9 pg (28.0-34.0) 11/06/20 15:11 MCHC 31.5 g/dL (30.0-36.0) 11/06/20 15:11 RDW 13.3 % (12.1-15.1) 11/06/20 15:11 Plt Count 317 10^3/cmm (130-400) 11/06/20 15:11 MPV 9.9 fL (7.4-10.4) 11/06/20 15:11 Neut % (Auto) 84.4 % 11/06/20 15:11 Lymph % (Auto) 6.5 % 11/06/20 15:11 Mitchell % (Auto) 8.1 % 11/06/20 15:11 Eos % (Auto) 0.1 % 11/06/20 15:11 Baso % (Auto) 0.4 % 11/06/20 15:11 Neut # (Auto) 9.37 10^3/uL (1.8-7.7) H 11/06/20 15:11 Lymph # (Auto) 0.7 10^3/uL (0.8-4.8) L 11/06/20 15:11 Mitchell # (Auto) 0.9 10^3/uL (0.2-0.9) 11/06/20 15:11 Eos # (Auto) 0.0 10^3/uL (0.0-0.8) 11/06/20 15:11 Baso # (Auto) 0.0 10^3/uL (0.0-0.1) 11/06/20 15:11 Nucleated RBC % (auto) 0 % 11/06/20 15:11 Nucleated RBCs # 0.0 /100WBC 11/06/20 15:11 D-Dimer Cancelled 11/06/20 15:11 Sodium 142 mmol/L (136-145) 11/06/20 16:20 Potassium 2.9 mmol/L (3.5-5.1) L 11/06/20 16:20 Chloride 99 mmol/L (98-107) 11/06/20 16:20 Carbon Dioxide 32 mmol/L (22-29) H 11/06/20 16:20 Anion Gap 13.9 (5-19) 11/06/20 16:20 BUN 13 mg/dL (8-23) 11/06/20 16:20 Creatinine 0.6 mg/dL (0.5-0.9) 11/06/20 16:20 GFR Calculation Not Reportable 11/06/20 16:20 Glucose 91 mg/dL (65-115) 11/06/20 16:20 Calculated Osmolality 294 mOsm/kg (285-295) 11/06/20 16:20 Lactate 1.6 mmol/L (0.5-2.2) 11/06/20 15:11 Calcium 8.1 mg/dL (8.5-10.5) L 11/06/20 16:20 Total Bilirubin 0.7 mg/dL (0.15-1.2) 11/06/20 16:20 AST 16 U/L (0-32) 11/06/20 16:20 ALT 16 U/L (0-33) 11/06/20 16:20 Alkaline Phosphatase 188 IU/L (35-105) H 11/06/20 16:20 Creatine Kinase 50 U/L (26-192) 11/06/20 16:20 Troponin T Baseline 41 ng/L (0-10) H 11/06/20 16:20 NT-Pro-B Natriuret Pep Cancelled 11/06/20 15:11 Total Protein 5.9 g/dL (6.6-8.7) L 11/06/20 16:20 Albumin 3.4 g/dL (3.5-5.2) L 11/06/20 16:20 Globulin 2.5 g/dL (1.3-4.6) 11/06/20 16:20 Urine Color Yellow (Yellow) 11/06/20 14:45 Urine Appearance Hazy (CLEAR) A 11/06/20 14:45 Urine pH 7 (5-7) 11/06/20 14:45 Ur Specific [place] 1.010 (1.005-1.030) 11/06/20 14:45 Urine Protein Neg (Negative) 11/06/20 14:45 Urine Glucose (UA) Norm (Normal) 11/06/20 14:45 Urine Ketones Negative (Negative) 11/06/20 14:45 Urine Blood 3+ (Negative) H 11/06/20 14:45 Urine Nitrate Negative (Negative) 11/06/20 14:45 Urine Bilirubin Neg (Negative) 11/06/20 14:45 Urine Urobilinogen 1 mg/dL (Negative) H 11/06/20 14:45 Ur Leukocyte Esterase Trace (Negative) H 11/06/20 14:45 Urine RBC 5-10 /hpf (0-2) H 11/06/20 14:45 Urine WBC 0-4 /hpf (0-5) H 11/06/20 14:45 Ur Squamous Epith Cells 10-15 /hpf (0-5) H 11/06/20 14:45 Amorphous Sediment Not Reportable 11/06/20 14:45 Urine Bacteria 2+ /hpf (NONE) H 11/06/20 14:45 Urine Mucus 1+ /hpf 11/06/20 14:45 Impressions Chest X-Ray 11/06/20 14:13 Impression: Atherosclerosis. A&P Assessment and plan (1) Failure to thrive: Status: Acute Qualifiers: Failure to thrive age range: in adult Qualified Code(s): R62.7 - Adult failure to thrive (2) Hypokalemia: With dehydration Status: Acute (3) Elevated troponin: Status: Acute (4) Abnormal urinalysis: Status: Acute (5) Gait abnormality: Status: Acute (6) Protein calorie malnutrition: Status: Acute Qualifiers: Protein-calorie malnutrition severity: mild Qualified Code(s): E44.1 - Mild protein-calorie malnutrition (7) Fracture of left ankle, lateral malleolus: Status: Acute Qualifiers: Encounter type: subsequent encounter Fracture type: closed Fracture alignment: nondisplaced (8) COPD, moderate: Not currently acute Status: Chronic (9) Benign essential hypertension: Status: Chronic (10) Dyslipidemia: Status: Chronic (11) Acid reflux: Status: Chronic Qualifiers: Esophagitis presence: without esophagitis Qualified Code(s): K21.9 - Gastro-esophageal reflux disease without esophagitis (12) Anxiety and depression: Status: Chronic Additional A&P Information Reviewing records, patient has had previous difficulty ambulating identified. She also has a history of some weight loss and low albumin suggestive of at least mild protein calorie malnutrition. With the fracture both proximally and distally in her fibula I think that this has exacerbated that problem. She is currently refusing to walk and was found in feces and urine. She has not gotten out of bed for several days according to information from the emergency room. She herself is not very forthcoming with the details. She does report some weight loss and has some muscle wasting noted. She has abnormal urinalysis and slight elevation white count although urine specimen looks to be contaminated which is not surprising given what she has been through recently. H&H is dropped from baseline. She denied any bleeding. She does have low potassium. She is not currently safe to stay at home alone. Prior to the fracture she had some difficulty but was able by her report to get up to bedside commode, dress herself and address her basic ADLs. That has changed since the fracture. It has been reported to me that there is nobody that can take care of her. Additionally patient has a history of COPD and and elevated initial troponin w ithout a known history of coronary artery disease. Inpatient admission PT and OT evaluation Repeat imaging plain film of the left leg Discussed with orthopedics in the morning, saw Dr. Watson outpatient IV fluids with potassium replacement Serial cardiac enzymes and EKGs Monitor urine and for signs of urinary infection, no antibiotics given to date Nystatin to groin Hold home hydrochlorothiazide Other home medications have continued including lisinopril and lovastatin CK level was checked and was normal Continue home sertraline, may consider increasing dose Continue home albuterol Add budesonide, normally on budesonide/formoterol inhaler Continue home Pepcid Nutrition evaluation DVT prophylaxis: Lovenox, monitor for drop in hemoglobin Plans, findings and concerns discussed with patient. She was given an opportunity to ask questions. I think she understand the basics of what I shared that she does appear hard of hearing. Anticipated Disposition: Skilled placement while fracture is healing, given other comorbidities putting her at more risk of further injury at this time Code Status: Full code Attestations Medical Necessity Statement*: Currently anticipate a stay greater than 2 midnights in this patient with failure to thrive secondary to recent proximal and distal fracture of the fibula in the setting of chronic gait instability, recent weight loss and limited support. She requires care as noted above. Coding Level of Care Code Acute Third Grade Teacher for Chg Fwd Diagnoses Failure to thrive R62.7 Failure to thrive age range: in adult Hypokalemia E87.6 Elevated troponin R77.8 Abnormal urinalysis R82.90 Gait abnormality R26.9 Protein calorie malnutrition E44.1 Protein-calorie malnutrition severity: mild Fracture of left ankle, lateral malleolus S82.62XA Encounter type: subsequent encounter Fracture type: closed Fracture alignment: nondisplaced COPD, moderate J44.9 Benign essential hypertension I10 Dyslipidemia E78.5 Acid reflux K21.9 Esophagitis presence: without esophagitis Anxiety and depression F41.9; F32.9
[2020-11-06] MEDS: potassium chloride ER 20 mEq Tablet 40 MEQ PO (19:38)
[2020-11-06 20:21] LABS: Troponin(5th) Baseline 47 ng/L (0-10)
--- NOTE | 2020-11-06 21:15 | XR_ITS ---
WS: [id number] Left leg including the tibia and fibula, AP and lateral views, 11/06/2020 Clinical Data: fracture known, unable to bear weight Comparison: Left leg, 10/27/2020. Findings: The proximal and distal left fibular fractures have not changed. No tibial fracture is seen. The soft tissues are normal. XR/XR tibia fibula LT 2V [id number] Impression: No change in proximal and distal fractures of the left fibula.
[2020-11-06] MEDS: budesonide 0.5 mg/2 mL Neb INHALATION (22:04)
--- NOTE | 2020-11-06 22:10 | ECG_ITS ---
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 Measurements Intervals [place] Rate: 99 P: 73 IA: 159 QRS: 30 QRSD: 85 T: 59 QT: 357 QTc: 459 Interpretive Statements SINUS RHYTHM WITH FREQUENT SUPRAVENTRICULAR PREMATURE COMPLEXES ST DEVIATION AND MODERATE T-WAVE ABNORMALITY, CONSIDER INFERIOR ISCHEMIA [-0.1+ mV T WAVE IN II/aVF] Compared to ECG 11/06/2020 17:20:01 T-wave abnormality now present Possible ischemia now present Myocardial infarct finding no longer present Electronically Signed On 11-12-2020 7:11:51 CDT by Kalpana Pak M.D. [email or web address]
[2020-11-06 22:20] LABS: Troponin 5 2HR 45.34 ng/L (0-10); Troponin 5 2HR Delta -1.66 ABS# (0-10)
[2020-11-06 22:25] LABS: ABG PCO2 45.6 mmHg (35-45); ABG PH Result 7.53 (7.35-7.45); Arterial Blood Gas Hematocrit 31.7 % (37-47); Base Excess ABG 13.9 mmol/L (-2.0-2.0); Blood Gas Operator Identificat HARKR; Blood Gas Sample Site Brachial, left; Blood Gas Sample Type Arterial; HCO3 ABG 38.1 mmol/L (22-26); Oxygen Device ROOM AIR; PO2 ABG 58.7 mmHg (80.0-100.0)
[2020-11-06] MEDS: sodium chlor 0.9% + KCl 20 mEq 20 MEQ/1,000 ML BAG 100 MEQ IV (22:29)
[2020-11-07] VITALS (12 sets, daily range): BP systolic 98–137; BP diastolic 65–82; PULSE 69–107; RESP 16–20; TEMP 36.4–36.9; O2SAT 91–98
[2020-11-07 02:26] LABS: Troponin 5 6HR 51.02 ng/L (0-10); Troponin 5 6HR Delta 4.02 ng/L (0-12)
[2020-11-07] MEDS: budesonide 0.5 mg/2 mL Neb INHALATION ×2 (07:49→20:11)
[2020-11-07] MEDS: sertraline 100 mg Tablet 200 MG PO (09:08)
[2020-11-07] MEDS: sodium chlor 0.9% + KCl 20 mEq 20 MEQ/1,000 ML BAG 100 MEQ IV (09:09)
[2020-11-07] MEDS: lisinopril 10 mg Tablet PO ×2 (09:09→17:56)
[2020-11-07] MEDS: famotidine 20 mg Tablet PO (09:09)
[2020-11-07] MEDS: atorvastatin 40 mg Tablet 20 MG PO (09:09)
[2020-11-07] MEDS: nystatin powder 15 gm Btl 1 APPLIC TOPICAL ×2 (09:13→17:56)
[2020-11-07] MEDS: potassium chloride oral liq 20 mEq/15 mL UDC PO ×2 (11:24→17:56)
--- NOTE | 2020-11-07 12:25 | P.PN_ITS ---
Subjective Subjective: Interval history: Able to get a bit more history today. Patient has dementia and baseline has poor recall. I think part of what has happened is that she does not remember that she has fractured her leg. She does not understand why she has a boot on her leg. During my evaluation of her this morning, she asked me 3 or 4 times while she was in the hospital and was not ab le to remember it even for couple of seconds. She does in fact live with her . There are family members 10 to 20 minutes away who do check on her but have not been able to adequately care for her. There are children who live closer to her in those who live further away. All are stating that they do not have the capacity or know how to help her. She refuses a lot of things. Nursing noted that she was not swallowing her pills well. Vitals/I&O/Wt Last Vital Signs Temp 97.9 F 11/07/20 12:00 Pulse 81 11/07/20 12:00 Resp 17 11/07/20 12:00 BP 125/82 11/07/20 12:00 Pulse Ox 96 11/07/20 12:00 11/06/20 11/07/20 11/07/20 22:59 06:59 14:59 Intake Total 237 / 237 1480 / 1480 Balance 237 / 237 1480 / 1480 Weight last 48 hrs Weight 63.503 kg Physical Exam Narrative: EXAM NARRATIVE: Constitutional: Sitting up in chair, less disheveled appearance, more alert but simultaneously it is much clear that she is confused. Speech is difficult to understand secondary to her being edentulous. Left side of the face/cheek appe ars slightly more prominent than right but no tenderness, not noted last evening but may have been positioning HEENT: Moist mucous membranes Respiratory: Clear to auscultation currently Cardiovascular: Regular rate and rhythm Abdomen: Soft, nontender Extremities: Boot is in place Skin: Erythema in the groin and on buttocks, some scabbing to legs Neuro: Moves all extremities Data : 11/06/20 15:11 11/06/20 16:20 A&P Assessment and plan (1) Dementia: Status: Chronic Qualifiers: Dementia type: unspecified type Dementia behavioral disturbance: with behavioral disturbance Qualified Code(s): F03.91 - Unspecified dementia with behavioral disturbance (2) Failure to thrive: Acute related to recent fracture on top of a degree of chronic challenges Status: Acute Qualifiers: Failure to thrive age range: in adult Qualified Code(s): R62.7 - Adult failure to thrive (3) Hypokalemia: With dehydration, await repeat labs today Status: Acute (4) Elevated troponin: Serial enzymes without significant change, likely chronic elevation and of unclear significance to any acute process Status: Acute (5) Abnormal urinalysis: Doubt infection, looks to be contaminated specimen Status: Acute (6) Fracture of left ankle, lateral malleolus: Weightbearing as tolerated, nonsurgical Status: Acute Qualifiers: Encounter type: subsequent encounter Fracture type: closed Fracture alignment: nondisplaced Fracture healing: with routine healing Qualified Code(s): S82.65XD - Nondisplaced fracture of lateral malleolus of left fibula, subsequent encounter for closed fracture with routine healing (7) Gait abnormality: At baseline, exacerbated by above, reports that she has a walker though I am not sure if it is true or not Status: Acute (8) Protein calorie malnutrition: Status: Acute Qualifiers: Protein-calorie malnutrition severity: mild Qualified Code(s): E44.1 - Mild protein-calorie malnutrition (9) COPD, moderate: Not currently acute Status: Chronic (10) Benign essential hypertension: Status: Chronic (11) Dyslipidemia: Status: Chronic (12) Acid reflux: Status: Chronic Qualifiers: Esophagitis presence: without esophagitis Qualified Code(s): K21.9 - Gastro-esophageal reflux disease without esophagitis (13) Anxiety and depression: Status: Chronic Additional A&P Information After getting further information from the family, patient has some baseline dementia/cognitive dysfunction. It seems like she is not doing well since she had the fracture to her leg. She constantly has to be reminded why she has a b oot on her leg and why it hurts when she tries to get up. She will not get up because of this and family has not been able to adequately care for her. I get a sense that it is challenging to care for her all the time but has been significantly exacerbated with this fracture. Speech evaluation PT and OT evaluation Replace electrolytes Follow-up laboratory studies still pending today With unchanged imaging, can continue weightbearing as tolerated with boot and outpatient follow-up to orthopedics Decrease IV fluids, with further adjustment pending speech evaluation/improved oral intake Nystatin to groin Off of home hydrochlorothiazide On home lisinopril and statin Continue home sertraline Continue home albuterol, on budesonide here, normally on budesonide/formoterol inhaler Continue home Pepcid Nutrition evaluation DVT prophylaxis: Lovenox, monitor for drop in hemoglobin Patient does not really have the capacity to maintain information. Every time you explain why she is here in the hospital, she expresses understanding. emergency services director working on placement options Anticipated Disposition: Skilled placement while fracture is healing, given other comorbidities putting her at more risk of further injury at this time Code Status: Full code Attestations Medical Necessity Statement*: Requires ongoing inpatient stay secondary to significant failure to thrive exacerbated by recent injury to the leg necessitating a boot being in place which she cannot remember from 1 minute to the next why it is there. Family has been unable to adequately care for her as evidenced by her condition upon arrival. Other issues and plans as noted. Coding Level of Care Code Acute Cable Television Program Director for Drake Mercado Diagnoses Dementia F03.91 Dementia type: unspecified type Dementia behavioral disturbance: with behavioral disturbance Failure to thrive R62.7 Failure to thrive age range: in adult Hypokalemia E87.6 Elevated troponin R77.8 Abnormal urinalysis R82.90 Fracture of left ankle, lateral malleolus S82.65XD Encounter type: subsequent encounter Fracture type: closed Fracture alignment: nondisplaced Fracture healing: with routine healing Gait abnormality R26.9 Protein calorie malnutrition E44.1 Protein-calorie malnutrition severity: mild COPD, moderate J44.9 Benign essential hypertension I10 Dyslipidemia E78.5 Acid reflux K21.9 Esophagitis presence: without esophagitis Anxiety and depression F41.9; F32.9
[2020-11-07 12:34] LABS: Basophils % 0.4 %; Eosinophils # 0.1 10^3/uL (0.0-0.8); Eosinophils % 0.5 %; Hematocrit 31.3 % (37.0-47.0); Hemoglobin 9.5 g/dL (11.5-15.3); Lymphocytes # 0.9 10^3/uL (0.8-4.8); Lymphocytes % 8.9 %; Mean Corpuscular HGB Conc 30.4 g/dL (30.0-36.0); Mean Corpuscular Hemoglobin 30.1 pg (28.0-34.0); Mean Corpuscular Volume 99.1 fL (81-99); Mean Platelet Volume 10.3 fL (7.4-10.4); Monocytes # 0.8 10^3/uL (0.2-0.9); Neutrophils # 8.16 10^3/uL (1.8-7.7); Neutrophils % 81.6 %; Nucleated Red Blood Cells % 0 %; Platelet Count 228 10^3/cmm (130-400); Red Blood Count 3.16 10^6/uL (4.1-5.3); Red Cell Distribution Width 13.3 % (12.1-15.1)
--- NOTE | 2020-11-07 12:34 | PC.CHAP ---
Pastoral Care Encounter/Spiritual Assessment Type of Contact [] Declined stock crane operator visit [] Patient/Family/Request visit [] Outpatient visit [] Follow-up visit [] Physician referral [] Code/Alert [] Routine visit [] Staff referral [] Actively dying [] Patient sleeping [] Family support [] [] Out of room [] Palliative care [] [xx] Receiving care in room [] Pre-surgical visit [] Trauma [] Long length of stay [] ICU visit [] Other: Relational/Emotional Strength [] Patient feels connected with others/family/visitors/staff [] Distress [] Loneliness/isolation [] Abandonment Spirituality of Patient [] Person of Mary [] Attends Confucianism of their Mary [] Believes in Prayer [] Reads Bible or Taoism materials [] There are Spiritual issues to be addressed Pen Tender Interventions [] Prayer [] Active listening [] Non-anxious presence [] Spiritual/emotional support [] Crisis/trauma care [] Spiritual counseling [] Bereavement support [] Provided bereavement packet [] Provided Bible/devotional materials [] Provided toy/stuffed animal, coloring book to patient or family member [] Provided Communion [] Anointing/[place] [] Salvation [] Completed spiritual assessment [] Other: Impact on Illness or Injury [] Angry [] Fearful [] Anxious [] Often cries [] Exhaustion [] Unable to work [] Unable to attend alevism [] Unable to walk/stand [] Unable to read [] Unable to drive [] Unable to eat/drink [] Unable to sleep [] Unable to be with family [] Patient intubated [] Other: Summary Multiple staff present were discussing multiple topics, plans of action and therapy needs. They were still present at end of stock crane operator's rounds. Follow up needed. Time spent with patient 3 minutes
[2020-11-07 12:35] LABS: INR 1.11 (0.8-1.2)
[2020-11-07 12:45] LABS: Blood Urea Nitrogen 14 mg/dL (8-23); Calcium 7.8 mg/dL (8.5-10.5); Carbon Dioxide 24 mmol/L (22-29); Chloride 100 mmol/L (98-107); Creatinine Clr Calc Pharmacy 60.6877; Glucose 129 mg/dL (65-115); Magnesium 1.8 mg/dL (1.7-2.3); Osmolality Calculated 284 mOsm/kg (285-295); Phosphorus 2.1 mg/dL (2.5-4.5); Sodium 136 mmol/L (136-145)
[2020-11-07 12:50] LABS: Anion Gap 15.4 (5-19); Potassium 3.4 mmol/L (3.5-5.1)
--- NOTE | 2020-11-07 18:43 | PC.NURSE ---
when taking boot off of L ankle this nurse noted a red unblanchable area to left interior lateral heel. Dr. Bowman notified, orders received to place optifoam for cushion.
--- NOTE | 2020-11-07 20:25 | PC.NURSE ---
FAMILY CONCERN: THIS NURSE SPOKE WITH THE PATIENT'S DAUGHTER AND SHE EXPRESSED A LOT OF CONCERN ABOUT THE PATIENT BEING DISCHARGED HOME. SHE STATED THE PATIENT IS VERY RESISTANT TO ALL CARE FROM FAMILY AT HOME. CONCERN FOR POTENTIAL BLOOD CLOTS BECAUSE PATIENT REFUSES TO GET UP AND MOVE. THE PATIENT STAYS IN THE BED ALL. REFUSES HYGIENIC CARE. THE FAMILY WOULD LIKE OPTIONS TO HELP WITH CORRECTION PLACEMENT OR IN HOME CARE.
--- NOTE | 2020-11-07 22:30 | PC.NURSE ---
Fall Patient being helped from chair back into bed by staff and as patient scooted forward in chair, sheet and chair under patient slid back a small amount and patient slipped into floor. Patient has no complaints of pain, no visual injuries noted. Patient assisted to stand by 3 staff members and assisted to lay down into bed, patient states I'm alright, I'm not hurt. Patient care nurse WIL Jones to notify family and physician.
--- NOTE | 2020-11-07 22:39 | PC.NURSE ---
FAMILY NOTIFIED: PATIENT'S DAUGHTER NOTIFIED THAT PATIENT SLID FROM CHAIR TO FLOOR DURING TRANSFER.
--- NOTE | 2020-11-07 22:44 | PC.NURSE ---
PHYSICIAN NOTIFICATION: PHYSICIAN CALLED AND NOTIFIED OF PATIENT'S FALL DURING TRANSFER FROM CHAIR TO BED. NO ORDERS GIVEN.
[2020-11-08] VITALS (7 sets, daily range): BP systolic 116; BP diastolic 74–76; PULSE 68–88; RESP 18; TEMP 36.5–36.7; O2SAT 91–94
[2020-11-08] MEDS: budesonide 0.5 mg/2 mL Neb INHALATION (09:07)
[2020-11-08] MEDS: sodium chlor 0.9% + KCl 20 mEq 20 MEQ/1,000 ML BAG 75 MEQ IV (10:16)
[2020-11-08] MEDS: atorvastatin 40 mg Tablet 20 MG PO (10:17)
[2020-11-08] MEDS: lisinopril 10 mg Tablet PO ×2 (10:18→17:27)
[2020-11-08] MEDS: famotidine 20 mg Tablet PO (10:18)
[2020-11-08] MEDS: potassium chloride oral liq 20 mEq/15 mL UDC PO ×2 (10:18→17:27)
[2020-11-08] MEDS: sertraline 100 mg Tablet 200 MG PO (10:18)
[2020-11-08] MEDS: nystatin powder 15 gm Btl 1 APPLIC TOPICAL ×2 (10:20→17:28)
--- NOTE | 2020-11-08 13:55 | PM.DCS ---
Discharge Providers Date of Admission: 11/06/20 19:13 Date of Discharge: November 08, 2020 Attending Provider at Admission: Amber Bowmna MD Attending Provider at Discharge: Amber Bowman MD Primary Care Provider: GONZALO Webb Diagnoses at Discharge Discharge Diagnosis (1) Dementia: Status: Chronic Qualifiers: Dementia behavioral disturbance: with behavioral disturbance Dementia type: unspecified type Qualified Code(s): F03.91 - Unspecified dementia with behavioral disturbance (2) Failure to thrive: Status: Acute Qualifiers: Failure to thrive age range: in adult Qualified Code(s): R62.7 - Adult failure to thrive (3) Hypokalemia: Status: Resolved (4) Elevated troponin: (5) Abnormal urinalysis: Status: Resolved (6) Fracture of left ankle, lateral malleolus: Status: Acute Qualifiers: Encounter type: subsequent encounter Fracture alignment: nondisplaced Fracture healing: with routine healing Fracture type: closed Qualified Code(s): S82.65XD - Nondisplaced fracture of lateral malleolus of left fibula, subsequent encounter for closed fracture with routine healing (7) Gait abnormality: Status: Acute (8) Protein calorie malnutrition: Status: Acute Qualifiers: Protein-calorie malnutrition severity: mild Qualified Code(s): E44.1 - Mild protein-calorie malnutrition (9) COPD, moderate: Status: Chronic (10) Benign essential hypertension: Status: Chronic (11) Dyslipidemia: Status: Chronic (12) Acid reflux: Status: Chronic Qualifiers: Esophagitis presence: without esophagitis Qualified Code(s): K21.9 - Gastro-esophageal reflux disease without esophagitis (13) Anxiety and depression: Status: Chronic Reason for Visit Reason for Visit: GENERALIZED WEAKNESS/ LEG PAIN Hospital Course Hospital Course Mrs. Gutiérrez presented to the emergency room because she would not get out of bed or take care of herself. She had had a previous fall with fibular fracture and was in a cam boot. She has known dementia. The family brought her in because they wanted her to get admitted to a fdc. She was covered in feces and urine. Medically she had low potassium level, mildly elevated troponin and an abnormal urinalysis. In addition she had evidence of protein calorie malnutrition and previous difficulties with gait prior to sustaining fracture. She received electrolyte and fluid replacement. Physical therapy was consulted. Her electrolytes normalized. It was learned that patient has no coverage for skilled placement and that the family would have to pay [id number]. This was not an option for them either. There are a couple of siblings who have different opinions about where Mrs. Manuel should live. She has family and [place] as well as in [place]. After stating that nobody could take care of her in the emergency room, they both wanted to take care of her when it became clear that she could not go to a facility. Another family member picked her up from the hospital to take her home. She was more alert at the time of discharge and overall feeling better. I stopped her hydrochlorothiazide due to low normal blood pressures. She has a follow-up appointment with Dr. Watson on November 19. Recommend follow-up to primary care provider in the interim to ensure that she is doing okay. She is weightbearing as tolerated to the leg. Discharge Data Data Completed and Pending: Completed Studies During Hospitalization Category Date Time Status XR chest 1V mayelin ble [id number] Urgent Exams 11/06/20 14:13 Completed XR tibia fibula L T 2V [id number] Routine Exams 11/06/20 21:15 Completed Laboratory Results WBC 10.0 10^3/uL (4.0 -10.0) 11/07/20 12:02 RBC 3.16 10^6/uL (4.1 -5.3) L 11/07/20 12:02 Hgb 9.5 g/dL (11.5-15 .3) L 11/07/20 12:02 Hct 31.3 % (37.0-47.0 ) L 11/07/20 12:02 MCV 99.1 fL (81-99) H 11/07/20 12:02 MCH 30.1 pg (28.0-34. 0) 11/07/20 12:02 MCHC 30.4 g/dL (30.0-3 6.0) 11/07/20 12:02 RDW 13.3 % (12.1-15.1 ) 11/07/20 12:02 Plt Count 228 10^3/cmm (130 -400) 11/07/20 12:02 MPV 10.3 fL (7.4-10.4 ) 11/07/20 12:02 Neut % (Auto) 81.6 % 11/07/20 12:02 Lymph % (Auto) 8.9 % 11/07/20 12:02 Allen % (Auto) 8.0 % 11/07/20 12:02 Eos % (Auto) 0.5 % 11/07/20 12:02 Baso % (Auto) 0.4 % 11/07/20 12:02 Neut # (Auto) 8.16 10^3/uL (1.8 -7.7) H 11/07/20 12:02 Lymph # (Auto) 0.9 10^3/uL (0.8- 4.8) 11/07/20 12:02 Allen # (Auto) 0.8 10^3/uL (0.2- 0.9) 11/07/20 12:02 Eos # (Auto) 0.1 10^3/uL (0.0- 0.8) 11/07/20 12:02 Baso # (Auto) 0.0 10^3/uL (0.0- 0.1) 11/07/20 12:02 Nucleated RBC % (a uto) 0 % 11/07/20 12:02 Nucleated RBCs # 0.0 /100WBC 11/07/20 12:02 PT 14.60 SECONDS (12 .1-14.9) 11/07/20 12:02 INR 1.11 (0.8-1.2) 11/07/20 12:02 D-Dimer Cancelled 11/06/20 15:11 Specimen Type Arterial 11/06/20 22:15 Sample Site Brachial, left 11/06/20 22:15 ABG pH 7.53 (7.35-7.45) H 11/06/20 22:15 ABG pCO2 45.6 mmHg (35-45) H 11/06/20 22:15 ABG pO2 58.7 mmHg (80.0-1 00.0) L 11/06/20 22:15 ABG HCO3 38.1 mmol/L (22-2 6) H 11/06/20 22:15 ABG Base Excess 13.9 mmol/L (-2.0 -2.0) H 11/06/20 22:15 Nacho Test N/a 11/06/20 22:15 Hematocrit 31.7 % (37-47) L 11/06/20 22:15 O2 Delivery Device Room air 11/06/20 22:15 FiO2 21.0 % 11/06/20 22:15 Passenger Booking Clerk ID [email or web address] 11/06/20 22:15 Sodium 136 mmol/L (136-1 45) 11/07/20 12:02 Potassium 3.4 mmol/L (3.5-5 .1) L 11/07/20 12:02 Chloride 100 mmol/L (98-10 7) 11/07/20 12:02 Carbon Dioxide 24 mmol/L (22-29) 11/07/20 12:02 Anion Gap 15.4 (5-19) 11/07/20 12:02 BUN 14 mg/dL (8-23) 11/07/20 12:02 Creatinine 0.6 mg/dL (0.5-0. 9) 11/07/20 12:02 GFR Calculation Not Reportable 11/07/20 12:02 Glucose 129 mg/dL (65-115 ) H 11/07/20 12:02 Calculated Osmolal ity 284 mOsm/kg (285- 295) L 11/07/20 12:02 Lactate 1.6 mmol/L (0.5-2 .2) 11/06/20 15:11 Calcium 7.8 mg/dL (8.5-10 .5) L 11/07/20 12:02 Phosphorus 2.1 mg/dL (2.5-4. 5) L 11/07/20 12:02 Magnesium 1.8 mg/dL (1.7-2. 3) 11/07/20 12:02 Total Bilirubin 0.7 mg/dL (0.15-1 .2) 11/06/20 16:20 AST 16 U/L (0-32) 11/06/20 16:20 ALT 16 U/L (0-33) 11/06/20 16:20 Alkaline Phosphata se 188 IU/L (35-105) H 11/06/20 16:20 Creatine Kinase 50 U/L (26-192) 11/06/20 16:20 Troponin T Baselin e 47 ng/L (0-10) H 11/06/20 19:20 Troponin T 120 Min [place] 45.34 ng/L (0-10) H 11/06/20 21:56 Delta Troponin T -1.66 ABS# (0-10) L 11/06/20 21:56 Troponin T Hi Sens 6Hr 51.02 ng/L (0-10) H 11/07/20 01:40 Troponin T Hi Sens 6Hr Delta 4.02 ng/L (0-12) 11/07/20 01:40 NT-Pro-B Natriuret Pep Cancelled 11/06/20 15:11 Total Protein 5.9 g/dL (6.6-8.7 ) L 11/06/20 16:20 Albumin 3.4 g/dL (3.5-5.2 ) L 11/06/20 16:20 Globulin 2.5 g/dL (1.3-4.6 ) 11/06/20 16:20 Urine Color Yellow (Yellow) 11/06/20 14:45 Urine Appearance Hazy (CLEAR) A 11/06/20 14:45 Urine pH 7 (5-7) 11/06/20 14:45 Ur Specific Gravit y 1.010 (1.005-1.0 30) 11/06/20 14:45 Urine Protein Neg (Negative) 11/06/20 14:45 Urine Glucose (UA) Norm (Normal) 11/06/20 14:45 Urine Ketones Negative (Negati ve) 11/06/20 14:45 Urine Blood 3+ (Negative) H 11/06/20 14:45 Urine Nitrate Negative (Negati ve) 11/06/20 14:45 Urine Bilirubin Neg (Negative) 11/06/20 14:45 Urine Urobilinogen 1 mg/dL (Negative ) H 11/06/20 14:45 Ur Leukocyte Janki ase Trace (Negative) H 11/06/20 14:45 Urine RBC 5-10 /hpf (0-2) H 11/06/20 14:45 Urine WBC 0-4 /hpf (0-5) H 11/06/20 14:45 Ur Squamous Epith Cells 10-15 /hpf (0-5) H 11/06/20 14:45 Amorphous Sediment Not Reportable 11/06/20 14:45 Urine Bacteria 2+ /hpf (NONE) H 11/06/20 14:45 Urine Mucus 1+ /hpf 11/06/20 14:45 Impressions Chest X-Ray 11/06/20 14:13 Impression: Atherosclerosis. Tibia/Fibula X-Ray 11/06/20 21:15 Impression: No change in proximal and distal fractures of the left fibula. Vitals: Last Vital Signs Temp 97.7 F 11/08/20 12:00 Pulse 74 11/08/20 12:00 Resp 18 11/08/20 12:00 BP 116/75 11/08/20 12:00 Pulse Ox 91 11/08/20 09:14 Discharge Plan Discharge Patient Disposition: Home Condition: Stable Prescriptions: New acetaminophen 325 mg Tablet 650 mg PO Q6H PRN (Reason: pain) Qty: 0 RF: 0 Continued albuterol sulfate [ProAir HFA] 90 mcg/actuation HFA aerosol inhaler 2 puff INHALATION Q4H PRN (Reason: shortness of breath or wheezing) 90 Days Qty: 3 RF: 1 budesonide-formoterol [Symbicort] 160-4.5 mcg/actuation HFA aerosol inhaler 2 puff INHALATION BID 90 Days Qty: 3 RF: 1 famotidine 20 mg tablet 20 mg PO DAILY 90 Days Qty: 90 RF: 1 lisinopril 10 mg tablet 10 mg PO BID 90 Days Qty: 180 RF: 1 lovastatin 20 mg tablet 20 mg PO DAILY 90 Days Qty: 90 RF: 1 sertraline [Zoloft] 100 mg tablet 200 mg PO DAILY 90 Days Qty: 180 RF: 1 (DME) SAMUEL NATHAN See Rx Instructions .ROUTE .MEDSUPPLY Qty: 1 RF: 0 potassium chloride 10 mEq Tablet Extended Release 20 meq PO BID Qty: 0 RF: 0 Discontinued hydrochlorothiazide 25 mg tablet 25 mg PO DAILY 90 Days Qty: 90 RF: 1 Discharge Orders: Discharge Order (Routine); Ordered 11/08/20 Ordered By: Amber Bowman Other Ambulatory Orders: Basic Metabolic Panel (Routine) Timeframe: 3 Days Location: Determined by Patient Ordered By: Amber Bowman Complete Blood Count w/Auto (Routine) Timeframe: 3 Days Location: Determined by Patient Ordered By: Amber Bowman Referrals: Nadia Altamirano FNP-C [Primary Care Provider] - 4-7 days ([facility] Melton will call you Tuesday to set up an appointment to see Pat Altamirano.) Rolf Watson MD [Physician] - 11/19/20 2:15 pm Discharge Diet: Usual diet Discharge Activity: Increase activity as tolerated Patient Instructions: Personal Hygiene, Leg Fracture (GEN), Opioid Safety Activity Restrictions/Additional Instructions: You came because you had been refusing to get up out of bed and your family was having difficulty caring for you. You had a mildly low potassium level at admission. Potassium was replaced. You also received some IV fluids. Your blood pressures were in the lower range of normal. I stopped your hydrochlorothiazide which is one of your blood pressure medications. Do not resume taking this medication unless told to by your primary care provider upon follow-up. I want you to take the potassium through the weekend but hold it after that until you see your primary care provider. You need to get your blood work checked next week and have your blood blood pressure checked next week. We did do an x-ray of your leg and the fractures look okay. Keep your follow-up with Dr. Watson on November 19. You may remove your boot for shower as needed, but should wear it while walking. Use your walker. You can bear weight on your leg as tolerated. I added tylenol for pain as needed. Please see your primary care provider next week and get blood drawn as ordered. You will also need your blood pressure checked. The office is supposed to call you on Tuesday. If they do not call, please call the clinic directly to get an appointment. Discharge Attestations Time Spent in Discharge Care*: greater than 30 min Specific Discharge Activities: educating patient, discussing with rn case manager hospice/social workers/dc planners, documenting/other paperwork and evaluating patient/reviewing data Status at Discharge: Cognitive status at discharge: moderately impaired cognition, Behavioral status at discharge: cooperative, Functional status at discharge: uses cane/walker Overall status at discharge: patient is back to baseline Quality Metrics Clinical Quality Measures During this hospital stay, did patient experience: None Coding Level of Care Code Acute [facility] DC note Diagnoses Dementia F03.91 Dementia behavioral disturbance: with behavioral disturbance Dementia type: unspecified type Failure to thrive R62.7 Failure to thrive age range: in adult Hypokalemia E87.6 Elevated troponin R77.8 Abnormal urinalysis R82.90 Fracture of left ankle, lateral malleolus S82.65XD Encounter type: subsequent encounter Fracture alignment: nondisplaced Fracture healing: with routine healing Fracture type: closed Gait abnormality R26.9 Protein calorie malnutrition E44.1 Protein-calorie malnutrition severity: mild COPD, moderate J44.9 Benign essential hypertension I10 Dyslipidemia E78.5 Acid reflux K21.9 Esophagitis presence: without esophagitis Anxiety and depression F41.9; F32.9
[2020-11-08] MEDS: acetaminophen 325 mg Tablet 650 MG PO (14:16)
--- NOTE | 2020-11-10 12:30 | PC.RESP ---
Pulmonary Rehab information sent to patient.
== END 2020-11-08 17:30 | disposition home or self-care (01) | DRG 641 ==
LOC: ER 14:50 → MEDSURG 20:07
PROVIDERS: Admitting Provider Hospitalist; Emergency Provider Family Medicine; PCP Nurse Practitioner Family; Visit Provider Hospitalist
DX: R62.7 Adult failure to thrive (principal); E44.1 Mild protein-calorie malnutrition; F03.91 Unspecified dementia, unspecified severity, with behavioral disturbance; Z68.23 Body mass index [BMI] 23.0-23.9, adult; S82.492D Other fracture of shaft of left fibula, subsequent encounter for closed fracture with routine healing; W19.XXXD Unspecified fall, subsequent encounter; E86.0 Dehydration; E87.6 Hypokalemia; K21.9 Gastro-esophageal reflux disease without esophagitis; F41.8 Other specified anxiety disorders; I10 Essential (primary) hypertension; J44.9 Chronic obstructive pulmonary disease, unspecified; E78.5 Hyperlipidemia, unspecified; Z87.891 Personal history of nicotine dependence; R26.89 Other abnormalities of gait and mobility; Z79.51 Long term (current) use of inhaled steroids
CPT/HCPCS: 36415; 36600; 71045; 73590; 80048; 80053; 81001; 82550; 82803; 83605; 83735; 84100; 84484; 85025; 85610; 92523; 92610; 93005; 94640; 97161; 97167; 97530; 97535; 99291; J7611; J7626

== ENCOUNTER → 2021-01-08 16:48 | Outpatient (BNVA) | payer OTHER, SELFPAY | PROVIDERS: PCP Nurse Practitioner Family; Visit Provider Nurse Practitioner Family | DX: I10 Essential (primary) hypertension (principal); J44.9 Chronic obstructive pulmonary disease, unspecified; K21.9 Gastro-esophageal reflux disease without esophagitis; E78.5 Hyperlipidemia, unspecified; F41.9 Anxiety disorder, unspecified; F32.9 Major depressive disorder, single episode, unspecified | CPT/HCPCS: 80053; 80061; 84443; 85025 ==

== ENCOUNTER 2021-04-09 19:47 | Observation (INO) | payer OTHER, SELFPAY ==
[2021-04-09 19:49] VITALS: BP 98/49; PULSE 73; RESP 18; TEMP 36.5; O2SAT 93; BMI 27.4
--- NOTE | 2021-04-09 20:08 | XRR_ITS ---
PROCEDURE INFORMATION: Exam: XR Chest Exam date and time: 04/09/2021 8:08 PM Age: 70 years old Clinical indication: Sternal or substernal pain; Additional info: Chest pain TECHNIQUE: Imaging protocol: XR of the chest. Views: 1 view. COMPARISON: CR XR chest 1V portable [id number] 11/06/2020 2:39 PM FINDINGS: Lungs: Hyperinflated lungs. No consolidation. Pleural spaces: Unremarkable. No pleural effusion. No pneumothorax. Heart/Mediastinum: Unremarkable. No cardiomegaly. Bones/joints: Partially visualized fixation device within the left humerus. XR/XR chest 1V portable [id number] IMPRESSION: Stable exam, no acute findings. Radiation Dose CTDIVOL = (mGy): DLP = (mGy-cm)
--- NOTE | 2021-04-09 20:12 | ED_ITS ---
Documented by User: Riky Guadalupe DO 04/09/21 23:07 HPI - Chest Pain General: Chief Complaint: Chest Pain Stated Complaint: CP, Urinary Diff Time Seen by Provider: 04/09/21 19:51 History of Present Illness: HPI narrative: This patient was transported by EMS to our emergency department. Allegedly the patient was having some difficulty breathing and chest discomfort and there was a question whether she had some dysuria. EMS was called by family. Apparently the patient is living in a camper but they found her outside in the rain when they arrived. Patient admits to chest pain but states she feels fine now. She denies any nausea vomiting or diarrhea. She states she is not eaten much today. She states she lives with her . She denies any known history of heart failure or heart attack. Associated symptoms: Reports dyspnea; Deny abdominal pain, fever(s), nausea, palpitations or vomiting Review of Systems Const: Denies: fever(s) or chills Eyes: Denies: change in vision ENMT: Denies: throat pain, odynophagia or hoarseness Card: Reports: chest pain; Denies: palpitations or irregular heart rhythm Resp: Reports: dyspnea; Denies: productive cough, non-productive cough or wheezing GI: Denies: abdominal pain, nausea, vomiting or change in bowel habits : Denies: flank pain, difficulty voiding or dysuria Musc: Denies: neck pain, back pain, extremity pain or extremity swelling Neuro: Denies: headache(s), numbness in extremities or weakness in extremities Endo: Denies: polyuria or polydipsia PFSH ED PFSH: Medical History Acid reflux Anxiety and depression Benign essential hypertension COPD, moderate Dementia Dyslipidemia Elevated troponin Surgical History Hx of total hysterectomy Social History Smoking and tobacco status: former smoker Second hand smoke exposure: Yes Smoking risk assessment/counseling performed?: No Alcohol intake: never Desire information about alcohol rehabilitation?: No Counseling given: No Desire information about substance/drug rehabilitation?: No Counseling given: No Adopted: No Caregiver/support person: No Lives independently: No Household members: spouse and family Housing: House Marital status: service: No Current occupational status: disabled Pets and animals: Yes History of recent travel: No Current gender identity: Female Female Reproductive History: Para: 3 Physical Exam Const: COMMON NORMALS: no acute distress, patient oriented x3 and alert GENERAL APPEARANCE: disheveled and appears older than stated age OTHER: She generally looks ill kept. Her clothes are stained and dirty, her appearance is one that reflects poor hygiene. Eye: COMMON NORMALS: Equal, round and reactive pupils present, EOMs intact bilaterally and no scleral icterus PUPIL: Yes Equal, round and reactive pupils present Neck/C-Spine: COMMON NORMALS: full ROM, no lymphadenopathy and No carotid bruits Chest: COMMONS NORMALS: normal palpation of entire chest wall Resp: COMMON NORMALS: No retractions, No use of accessory muscles and clear to auscultation bilaterally EFFORT & INSPECTION: Yes able to speak in complete sentences AUSCULTATION: clear to auscultation bilaterally Cardio: COMMON NORMALS: regular rate, regular rhythm and No murmurs present (Cardio) RATE: regular rate RHYTHM: regular rhythm GI: COMMON NORMALS: Normal to inspection, nondistended, normoactive bowel sounds present, Soft to palpation and non-tender PALPATION: Yes Soft to palpation : COMMON NORMALS: Yes no CVA tenderness BLADDER/KIDNEY EXAM: Yes no CVA tenderness Back/Pelvis: COMMON NORMALS: no CVA tenderness, thoracic and lumbar spine normal to inspection, no thoracic nor lumbar tenderness and thoraco-lumbar ROM normal Extremity: COMMON NORMALS: normal to inspection, full ROM, capillary refill normal, no joint enlargement, no clubbing, cyanosis or edema and no pedal edema Neuro: COMMON NORMALS: patient oriented x3, moves all extremities and no focal motor deficits SENSORIUM/ORIENTATION: Yes alert Skin: GENERAL SKIN EXAM: dry skin and turgor decreased Course Reevaluation(s): Reevaluation #1: Patient's daughter is here who collaborates the previous history. Nursing staff was able to take the patient to the shower to clean her up some. She has few excoriated areas of her skin particularly on her lower extremities as well as on her toes. No skin erythema or proximal lymphangitis or lymphadenopathy. This patient will likely warrant admission to observation to allow social media job titles to evaluate her home situation. Blood pressures were taken in the lower extremities which were near equivalent to the upper extremities thereby signifying an DARREL of 0.9 or greater making vascular compromise of the lower extremities unlikely. This was done because of the initial nursing concern of discoloration of the lower extremities. I think this is probably related to her generalized debility and not any indication of peripheral vascular occlusion. Vital Signs: Vital signs: Vital Signs Temperature 97.6 F 04/11/21 04:00 Pulse Rate 74 04/11/21 04:00 Respiratory Rate 16 04/11/21 04:00 Blood Pressure 97/64 04/11/21 04:00 Pulse Oximetry 93 04/11/21 04:00 MDM - Chest Pain Lab Data: Labs: Lab Results 04/09/21 04/09/21 04/09/21 23:03 23:03 23:03 WBC 14.1 10^3/uL H 10 ^3/uL (4.0-10.0) RBC 4.62 10^6/uL 10^6 /uL (4.1-5.3) Hgb 13.5 g/dL g/dL (11.5-15.3) Hct 43.1 % % (37.0-47.0) MCV 93.3 fl fl (81-99) MCH 29.2 pg pg (28.0-34.0) MCHC 31.3 g/dL g/dL (30.0-36.0) RDW 13.5 % % (12.1-15.1) Plt Count 280 10^3/cmm 10^3 /cmm (130-400) MPV 11.0 fL H fL (7.4-10.4) Neut % (Auto) 86.7 % % Lymph % (Auto) 6.5 % % Hyde % (Auto) 6.3 % % Eos % (Auto) 0.0 % % Baso % (Auto) 0.1 % % Neut # (Auto) 12.22 10^3/uL H 1 0^3/uL (1.8-7.7) Lymph # (Auto) 0.9 10^3/uL 10^3/ uL (0.8-4.8) Hyde # (Auto) 0.9 10^3/uL 10^3/ uL (0.2-0.9) Eos # (Auto) 0.0 10^3/uL 10^3/ uL (0.0-0.8) Baso # (Auto) 0.0 10^3/uL 10^3/ uL (0.0-0.1) Nucleated RBC % (a uto) 0 % % Nucleated RBCs # 0.0 /100WBC /100W BC Sodium 140 mmol/L mmol/L (136-145) Potassium 3.3 mmol/L L mmol /L (3.5-5.1) Chloride 93 mmol/L L mmol/ L (98-107) Carbon Dioxide 33 mmol/L H mmol/ L (22-29) Anion Gap 17.3 (5-19) BUN 54 mg/dL H mg/dL (8-23) Creatinine 1.9 mg/dL H mg/dL (0.5-0.9) GFR Calculation Not Reportable Glucose 98 mg/dL mg/dL (65-115) Calculated Osmolal ity 305 mOsm/kg H mOs m/kg (285-295) Calcium 9.5 mg/dL mg/dL (8.5-10.5) Total Bilirubin 0.5 mg/dL mg/dL (0.15-1.2) AST 26 U/L U/L (0-32) ALT 24 U/L U/L (0-33) Alkaline Phosphata se 77 IU/L IU/L (35-105) Troponin T Baselin e 58 ng/L H ng/L (0-10) Troponin T 120 Min [place] Troponin T Total Protein 7.5 g/dL g/dL (6.6-8.7) Albumin 4.5 g/dL g/dL (3.5-5.2) Globulin 3.0 g/dL g/dL (1.3-4.6) Lipase 26 U/L U/L (13-60) Urine Color Urine Appearance Urine pH Ur Specific Gravit y Urine Protein Urine Glucose (UA) Urine Ketones Urine Blood Urine Nitrate Urine Bilirubin Urine Urobilinogen Ur Leukocyte Janki ase SARS-CoV-2 Ag (Rap id) 04/09/21 04/09/21 04/10/21 23:05 23:25 01:10 WBC RBC Hgb Hct MCV MCH MCHC RDW Plt Count MPV Neut % (Auto) Lymph % (Auto) Hyde % (Auto) Eos % (Auto) Baso % (Auto) Neut # (Auto) Lymph # (Auto) Hyde # (Auto) Eos # (Auto) Baso # (Auto) Nucleated RBC % (a uto) Nucleated RBCs # Sodium Potassium Chloride Carbon Dioxide Anion Gap BUN Creatinine GFR Calculation Glucose Calculated Osmolal ity Calcium Total Bilirubin AST ALT Alkaline Phosphata se Troponin T Baselin e Troponin T 120 Min [place] 50.85 ng/L H ng/L (0-10) Delta Troponin T -7.15 ABS# L ABS# (0-10) Total Protein Albumin Globulin Lipase Urine Color Yellow (Yellow) Urine Appearance Clear (CLEAR) Urine pH 5 (5-7) Ur Specific Gravit y 1.015 (1.005-1.030) Urine Protein Neg (Negative) Urine Glucose (UA) Norm (Normal) Urine Ketones 1+ H (Negative) Urine Blood Neg (Negative) Urine Nitrate Negative (Negative) Urine Bilirubin 1+ H (Negative) Urine Urobilinogen Norm mg/dL mg/dL (Negative) Ur Leukocyte Janki ase Negative (Negative) SARS-CoV-2 Ag (Rap id) Negative (Negative) Discharge Plan Discharge Patient Disposition: Admitted As Inpatient Admit Provider: Philip Rossi Clinical Impression: Neglected elder Qualifiers: Encounter type: initial encounter Qualified Code(s): T74.01XA - Adult neglect or abandonment, confirmed, initial encounter Condition: Stable Sign Out Sign Out Data: Patient Sign Out occurred on 04/09/21 at 23:20. Patient's care was discussed, and care was transferred from to Calos Giordano MD. Post-Handoff Eval: Patient care handed off by Dr. Guadalupe pending repeat troponin. Patient has complex social situation but more importantly likely needs repeat cardiac evaluation given description of symptoms and moderate risk heart score. I personally reevaluate the patient and discussed this plan. I reviewed documentation and imaging. I reviewed EKGs. Patient admitted without acute deterioration or acute events. Calos Giordano MD Emergency Medicine Coding Level of Care Code ED Jackhammer Operator for Chg Fwd Exam Comprehensive Documented by User: Calos Giordano MD 04/11/21 05:50 HPI - Chest Pain General: Chief Complaint: Chest Pain Stated Complaint: CP, Urinary Diff Time Seen by Provider: 04/09/21 19:51 PFSH ED PFSH: Medical History Acid reflux Anxiety and depression Benign essential hypertension COPD, moderate Dementia Dyslipidemia Elevated troponin Surgical History Hx of total hysterectomy Social History Smoking and tobacco status: former smoker Second hand smoke exposure: Yes Smoking risk assessment/counseling performed?: No Alcohol intake: never Desire information about alcohol rehabilitation?: No Counseling given: No Desire information about substance/drug rehabilitation?: No Counseling given: No Adopted: No Caregiver/support person: No Lives independently: No Household members: spouse and family Housing: House Marital status: service: No Current occupational status: disabled Pets and animals: Yes History of recent travel: No Current gender identity: Female Course Vital Signs: Vital signs: Vital Signs Temperature 97.6 F 04/11/21 04:00 Pulse Rate 74 04/11/21 04:00 Respiratory Rate 16 04/11/21 04:00 Blood Pressure 97/64 04/11/21 04:00 Pulse Oximetry 93 04/11/21 04:00 MDM - Chest Pain Lab Data: Labs: Lab Results 04/09/21 04/09/21 04/09/21 23:03 23:03 23:03 WBC 14.1 10^3/uL H 10 ^3/uL (4.0-10.0) RBC 4.62 10^6/uL 10^6 /uL (4.1-5.3) Hgb 13.5 g/dL g/dL (11.5-15.3) Hct 43.1 % % (37.0-47.0) MCV 93.3 fl fl (81-99) MCH 29.2 pg pg (28.0-34.0) MCHC 31.3 g/dL g/dL (30.0-36.0) RDW 13.5 % % (12.1-15.1) Plt Count 280 10^3/cmm 10^3 /cmm (130-400) MPV 11.0 fL H fL (7.4-10.4) Neut % (Auto) 86.7 % % Lymph % (Auto) 6.5 % % Hyde % (Auto) 6.3 % % Eos % (Auto) 0.0 % % Baso % (Auto) 0.1 % % Neut # (Auto) 12.22 10^3/uL H 1 0^3/uL (1.8-7.7) Lymph # (Auto) 0.9 10^3/uL 10^3/ uL (0.8-4.8) Hyde # (Auto) 0.9 10^3/uL 10^3/ uL (0.2-0.9) Eos # (Auto) 0.0 10^3/uL 10^3/ uL (0.0-0.8) Baso # (Auto) 0.0 10^3/uL 10^3/ uL (0.0-0.1) Nucleated RBC % (a uto) 0 % % Nucleated RBCs # 0.0 /100WBC /100W BC Sodium 140 mmol/L mmol/L (136-145) Potassium 3.3 mmol/L L mmol /L (3.5-5.1) Chloride 93 mmol/L L mmol/ L (98-107) Carbon Dioxide 33 mmol/L H mmol/ L (22-29) Anion Gap 17.3 (5-19) BUN 54 mg/dL H mg/dL (8-23) Creatinine 1.9 mg/dL H mg/dL (0.5-0.9) GFR Calculation Not Reportable Glucose 98 mg/dL mg/dL (65-115) Calculated Osmolal ity 305 mOsm/kg H mOs m/kg (285-295) Calcium 9.5 mg/dL mg/dL (8.5-10.5) Total Bilirubin 0.5 mg/dL mg/dL (0.15-1.2) AST 26 U/L U/L (0-32) ALT 24 U/L U/L (0-33) Alkaline Phosphata se 77 IU/L IU/L (35-105) Troponin T Baselin e 58 ng/L H ng/L (0-10) Troponin T 120 Min [place] Troponin T Total Protein 7.5 g/dL g/dL (6.6-8.7) Albumin 4.5 g/dL g/dL (3.5-5.2) Globulin 3.0 g/dL g/dL (1.3-4.6) Lipase 26 U/L U/L (13-60) Urine Color Urine Appearance Urine pH Ur Specific Gravit y Urine Protein Urine Glucose (UA) Urine Ketones Urine Blood Urine Nitrate Urine Bilirubin Urine Urobilinogen Ur Leukocyte Janki ase SARS-CoV-2 Ag (Rap id) 04/09/21 04/09/21 04/10/21 23:05 23:25 01:10 WBC RBC Hgb Hct MCV MCH MCHC RDW Plt Count MPV Neut % (Auto) Lymph % (Auto) Hyde % (Auto) Eos % (Auto) Baso % (Auto) Neut # (Auto) Lymph # (Auto) Hyde # (Auto) Eos # (Auto) Baso # (Auto) Nucleated RBC % (a uto) Nucleated RBCs # Sodium Potassium Chloride Carbon Dioxide Anion Gap BUN Creatinine GFR Calculation Glucose Calculated Osmolal ity Calcium Total Bilirubin AST ALT Alkaline Phosphata se Troponin T Baselin e Troponin T 120 [address] [place] 50.85 ng/L H ng/L (0-10) Delta Troponin T -7.15 ABS# L ABS# (0-10) Total Protein Albumin Globulin Lipase Urine Color Yellow (Yellow) Urine Appearance Clear (CLEAR) Urine pH 5 (5-7) Ur Specific Gravit y 1.015 (1.005-1.030) Urine Protein Neg (Negative) Urine Glucose (UA) Norm (Normal) Urine Ketones 1+ H (Negative) Urine Blood Neg (Negative) Urine Nitrate Negative (Negative) Urine Bilirubin 1+ H (Negative) Urine Urobilinogen Norm mg/dL mg/dL (Negative) Ur Leukocyte Janki ase Negative (Negative) SARS-CoV-2 Ag (Rap id) Negative (Negative) EKG Data^: EKG 1: Attestation: I personally reviewed and interpreted this EKG as follows: EKG interpretation date: 04/09/21 EKG interpretation time: 23:11 Interpretation: Twelve-lead EKG shows a regular rhythm at a rate of 61. NM interval 149, QRS duration 87, QTc 425. Normal axis. Interpretation: Sinus rhythm. Nonspecific ST segment abnormalities. EKG 2: Attestation: I personally reviewed and interpreted this EKG as follows: EKG interpretation date: 04/10/21 EKG interpretation time: 02:03 Interpretation: Twelve-lead EKG shows a regular rhythm at a rate of 60. NM interval 130, QRS duration 93, QTc 431 Normal axis. Interpretation: Sinus rhythm, similar to prior, nonspecific ST segment abnormalities Discharge Plan Discharge Patient Disposition: Admitted As Inpatient Admit Provider: Philip Rossi Clinical Impression: Neglected elder Qualifiers: Encounter type: initial encounter Qualified Code(s): T74.01XA - Adult neglect or abandonment, confirmed, initial encounter Condition: Stable Sign Out Sign Out Data: Patient Sign Out occurred on 04/09/21 at 23:20. Patient's care was discussed, and care was transferred from to Calos Giordano MD. Post-Handoff Eval: Patient care handed off by Dr. Guadalupe pending repeat troponin. Patient has complex social situation but more importantly likely needs repeat cardiac evaluation given description of symptoms and moderate risk heart score. I personally reevaluate the patient and discussed this plan. I reviewed documentation and imaging. I reviewed EKGs. Patient admitted without acute deterioration or acute events. Calos Giordano MD Emergency Medicine Coding Level of Care Code ED Jackhammer Operator for Chg Fwd Exam Comprehensive
[2021-04-09 21:55] VITALS: BP 86/52; RESP 24; O2SAT 88
[2021-04-09 22:00] VITALS: BP 90/61; RESP 24; O2SAT 88
--- NOTE | 2021-04-09 22:08 | ECG_ITS ---
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 Measurements Intervals [place] Rate: 61 P: 87 MI: 149 QRS: 29 QRSD: 87 T: 89 QT: 423 QTc: 426 Interpretive Statements SINUS RHYTHM Compared to ECG 11/06/2020 22:14:18 Possible ischemia no longer present T-wave abnormality still present Electronically Signed On 04-10-2021 18:49:51 CDT by Chester Black M.D. [id number]
[2021-04-09 23:25] LABS: Basophils % 0.1 %; Hematocrit 43.1 % (37.0-47.0); Hemoglobin 13.5 g/dL (11.5-15.3); Lymphocytes # 0.9 10^3/uL (0.8-4.8); Lymphocytes % 6.5 %; Mean Corpuscular HGB Conc 31.3 g/dL (30.0-36.0); Mean Corpuscular Hemoglobin 29.2 pg (28.0-34.0); Mean Corpuscular Volume 93.3 fl (81-99); Monocytes # 0.9 10^3/uL (0.2-0.9); Monocytes % 6.3 %; Neutrophils # 12.22 10^3/uL (1.8-7.7); Neutrophils % 86.7 %; Nucleated Red Blood Cells % 0 %; Platelet Count 280 10^3/cmm (130-400); Red Blood Count 4.62 10^6/uL (4.1-5.3); Red Cell Distribution Width 13.5 % (12.1-15.1); White Blood Count 14.1 10^3/uL (4.0-10.0)
[2021-04-09 23:39] LABS: Troponin(5th) Baseline 58 ng/L (0-10)
[2021-04-09] MEDS: aspirin 81 mg Chew Tablet 324 MG PO (23:39)
[2021-04-09] MEDS: sodium chloride 0.9% 1,000 ML 150 ML IV (23:39)
[2021-04-09 23:41] LABS: Alanine Aminotransferase 24 U/L (0-33); Albumin Level 4.5 g/dL (3.5-5.2); Alkaline Phosphatase 77 IU/L (35-105); Anion Gap 17.3 (5-19); Aspartate Amino Transferase 26 U/L (0-32); Blood Urea Nitrogen 54 mg/dL (8-23); Calcium 9.5 mg/dL (8.5-10.5); Carbon Dioxide 33 mmol/L (22-29); Chloride 93 mmol/L (98-107); Glucose 98 mg/dL (65-115); Lipase 26 U/L (13-60); Osmolality Calculated 305 mOsm/kg (285-295); Potassium 3.3 mmol/L (3.5-5.1); Sodium 140 mmol/L (136-145); Total Bilirubin 0.5 mg/dL (0.15-1.2); Total Protein 7.5 g/dL (6.6-8.7)
[2021-04-09 23:41] LABS: Add Urine Microscopic? NO; Charge for UA Resulting for Rev
[2021-04-09 23:42] LABS: Blood Urine Neg (Negative); Glucose Urine UA Norm (Normal); Ketones Urine 1+ (Negative); Nitrate Urine Negative (Negative); Protein Urine Neg (Negative); Specific Gravity, Urine 1.015 (1.005-1.030); Urine Appearance Clear (CLEAR); Urine Color Yellow (Yellow); pH Urine 5 (5-7)
[2021-04-09 23:43] LABS: Bilirubin Urine 1+ (Negative); Leukocyte Esterase Urine Negative (Negative); Urobilinogen Urine Norm (Negative)
[2021-04-09 23:55] VITALS: BP 121/46; PULSE 60; RESP 15; O2SAT 96
[2021-04-10] VITALS (12 sets, daily range): BP systolic 100–157; BP diastolic 45–82; PULSE 60–76; RESP 16–20; TEMP 36.4–37; O2SAT 93–97
[2021-04-10] LABS: SARS Covid-2 Antigen Negative (Negative)
[2021-04-10 01:48] LABS: Troponin 5 2HR 50.85 ng/L (0-10)
--- NOTE | 2021-04-10 02:08 | ECG_ITS ---
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 Measurements Intervals [place] Rate: 60 P: 55 MD: 130 QRS: 28 QRSD: 93 T: 79 QT: 429 QTc: 432 Interpretive Statements SINUS RHYTHM NONSPECIFIC T-WAVE ABNORMALITY Compared to ECG 04/09/2021 23:11:14 No significant changes Electronically Signed On 04-10-2021 5:48:22 CDT by Kalpana Pak M.D. [id number]
--- NOTE | 2021-04-10 02:12 | USCV_ITS ---
Zuleima Morejon Age: 70 Gender: F : 1950 Exam Date: 04/10/2021 06:02 Ordering Phys: Phliip Rossi MD Technologist: Gretchen Sequeira Exam Location: [facility] [place] Indication: CHEST PAIN BP: 140 / 60 HR: Rhythm: Sinus Technical Quality: Very technically difficult study MEASUREMENTS (Male / Female) Normal Values 2D ECHO LVOT Diameter 2.0 cm LA Diameter 2.5 cm Aorta at Sinotubular Diameter 2.2 cm M-MODE Aortic Annulus Diameter 2.4 cm LA Ao Ratio MM 1.2 MV E Point Septal Separation 0.5 cm FINDINGS Left Ventricle Left ventricular cavity not well visualized. Right Ventricle Right ventricle not well visualized. Right Atrium Right atrium not well visualized. Left Atrium Left atrium not well visualized. Mitral Valve Mitral valve not well visualized. Aortic Valve Aortic valve not well visualized. Tricuspid Valve Structurally normal tricuspid valve. Trace tricuspid valve regurgitation. Pulmonic Valve Pulmonic valve not well visualized. Pericardium No pericardial effusion. Aorta Aorta not well visualized. CONCLUSIONS 1. No good windows for assessment of cardiac function and valves. Kalpana Pak MD (Electronically Signed) Final Date: 10 April 2021 16:08 S
--- NOTE | 2021-04-10 02:26 | P.HP_ITS ---
Providers/Chief Complaint Admitting Physician: Philip Rossi Primary Care Provider: GONZALO Webb Chief Complaint: POSSIBLE UTI History of Present Illness 70-year-old female with past medical history significant for anxiety, depression COPD, hypertension, hyperlipidemia, and dementia was presented to emergency room for evaluation of respiratory distress. Prior to arrival patient was seen by PCP via [facility] during which time patient was requesting oxygen noting O2 saturations at home to be in 80s at nighttime. It was noted that patient was using her 's oxygen. Patient was not able to provide much history at the time of my evaluation. She was found by EMS outside her camper. Laboratory workup on arrival showed a WBC of 14.1, hemoglobin of 13.5, hematocrit of 43.1 and platelet count of 280. Sodium 140, potassium 3.3, chloride 93, bicarb 33, BUN 54 and creatinine of 1.9. Previously noted to have normal renal function. Troponin T baseline of 58 and repeat of 50.85 at 2hr. COVID-19 ag negative. Imaging studies included chest x-ray which did not show any acute cardiopulmonary abnormality. Of note patient was hotlined in ER for neglect. No family at bedside. Review of Systems General: Reports: ROS unobtainable due to mental status Medications/Allergies Home Medications Medication Instructions Recorded Confirmed Last Taken Type CAM WALKER #1 ea 10/31/20 04/09/21 Unknown Rx acetaminophen 650 mg PO Q6H PRN #0 tab 11/08/20 04/09/21 Unknown Rx albuterol sulfate 90 mcg/actuation 2 puff INHALATION Q4H PRN 90 Days 01/08/21 04/09/21 Unknown Rx aerosol inhaler #3 each budesonide-formoterol HFA 160 2 puff INHALATION BID 90 Days #3 01/08/21 04/09/21 Unknown Rx mcg-4.5 mcg/actuation aerosol each inhaler famotidine 20 mg tablet 20 mg PO DAILY 90 Days #90 tab 01/08/21 04/09/21 Unknown Rx lisinopril 10 mg tablet 10 mg PO BID 90 Days #180 tab 01/08/21 04/09/21 Unknown Rx lovastatin 20 mg tablet 20 mg PO DAILY 90 Days #90 tab 01/08/21 04/09/21 Unknown Rx sertraline 100 mg tablet 200 mg PO DAILY 90 Days #180 tab 01/08/21 04/09/21 Unknown Rx hydrochlorothiazide 25 mg PO DAILY 04/09/21 04/09/21 Unknown History Allergies Allergy/AdvReac Type Severity Reaction Status Date / Time morphine Allergy ADR-Itching Verified 01/26/21 14:25 PFSH Acute PFSH: Medical History Acid reflux Anxiety and depression Benign essential hypertension COPD, moderate Dementia Dyslipidemia Elevated troponin Surgical History Hx of total hysterectomy Social History Smoking and tobacco status: former smoker Second hand smoke exposure: Yes Smoking risk assessment/counseling performed?: No Alcohol intake: never Desire information about alcohol rehabilitation?: No Counseling given: No Desire information about substance/drug rehabilitation?: No Counseling given: No Adopted: No Caregiver/support person: No Lives independently: No Household members: spouse and family Housing: House Marital status: service: No Current occupational status: disabled Pets and animals: Yes History of recent travel: No Current gender identity: Female Female Reproductive History: Para: 3 Vitals/I&O/Wt Last Vital Signs Temp 98.6 F 04/10/21 03:57 Pulse 71 04/10/21 03:57 Resp 16 04/10/21 03:57 BP 104/69 04/10/21 03:57 Pulse Ox 95 04/10/21 03:57 04/09/21 04/09/21 04/10/21 14:59 22:59 06:59 Intake Total 645 / 645 Balance 645 / 645 Weight last 48 hrs Weight 74.843 kg Physical Exam Narrative: EXAM NARRATIVE: General- unkempt, no apparent distress HEENT- grossly unremarkable CVS- regular rate rhythm Chest- clear to auscultation Abdomen- nondistended Extremities- no edema Data : 04/09/21 23:03 04/09/21 23:03 A&P Assessment and plan (1) Acute renal failure: Status: Acute (2) Dementia: Status: Chronic Qualifiers: Dementia type: unspecified type Dementia behavioral disturbance: with behavioral disturbance Qualified Code(s): F03.91 - Unspecified dementia with behavioral disturbance (3) Neglected elder: Status: Acute Qualifiers: Encounter type: initial encounter Qualified Code(s): T74.01XA - Adult neglect or abandonment, confirmed, initial encounter (4) Failure to thrive: Status: Acute Qualifiers: Failure to thrive age range: in adult Qualified Code(s): R62.7 - Adult failure to thrive (5) COPD, moderate: Status: Chronic (6) Benign essential hypertension: Status: Chronic Additional A&P Information Elevated Troponin 2hr Delta -7.15 Noted Cp prior to arrival Echo ordered Monitor on tele Asa 324 mg PO x1 in ER Lipid panel in am F/u on 6hr troponin May consider stress test prior to D/C Adult failure to Thrive / Neglect / Dementia Consult corrections cadet Cardiac diet PT consult SW/CM consulted Acute renal failure Creatinine 1.9 Santos placed NS at 125cc/hr Repeat BMP in am Hold diuretics. Ag Hypokalemia S/p KLC 20 Meq PO x 1 Follow up on repeat BMP in am Chronic Obstructive Pulmonary Diseaes Not currently in exacerbation Not rq supplemental o2 Duoneb q6hr Symbicort 1 puff BID Home o2 eval prior to dc Depression Zoloft 200 mg PO daily Gi ppx Protonix 40 mg PO daily DVT ppx Heparin 5000 units q12h Attestations Medical Necessity Statement*: Less than 2 midnight stay in hospital for eval and treatment Time Spent in Patient Care: Greater than 35 minutes (>than 50% of time spent in counselling and/or direct pt care on unit) . Coding Level of Care Code Acute Manager Drive for Drake Fwd Diagnoses Acute renal failure N17.9 Dementia F03.91 Dementia type: unspecified type Dementia behavioral disturbance: with behavioral disturbance Neglected elder T74.01XA Encounter type: initial encounter Failure to thrive R62.7 Failure to thrive age range: in adult COPD, moderate J44.9 Benign essential hypertension I10
[2021-04-10] MEDS: potassium chloride oral liq 20 mEq/15 mL UDC PO (03:00)
[2021-04-10] MEDS: heparin 5,000 unit/mL INJ 1 mL 5000 UNIT SUBCUT ×2 (03:14→14:30)
--- NOTE | 2021-04-10 04:34 | PC.NURSE ---
Addendum entered by Belinda James RN 04/10/21 05:05: Per report from ED nurse pt has been hotlined for neglect Original Note: Pt arrived to unit at 0345 via gurnery and ED staff. Three assist from [facility] to bed. Dr. Rossi at bedside and assessed pt. Verbal order to insert hernandez. 16 Fr hernandez insert per aseptic technique with 10 mL in balloon. Secured to leg with stat lock. Pt tolerated well. White discharge noted from vagina. Underneath bilat breast skin is excoriated. Bruising noted to back and buttock excoriated. Scattered bruising and round abrasions noted to pt body. Pt stated that's from the bug bites Pt noted to have a foul odor. Bilat feet discoloration. Left pedal pulse doppler. Noted to be faint. During admission assessment pt would reply what's that? to each question and needed frequent education. Orientated to room and call light in reach. Reports pain to her bottom. Denies any further needs at this time.
[2021-04-10] MEDS: sodium chloride 0.9% 1,000 ML 125 ML IV ×3 (04:55→20:12)
[2021-04-10 06:52] LABS: Troponin 5 6HR 61.17 ng/L (0-10); Troponin 5 6HR Delta 3.17 ng/L (0-12)
[2021-04-10] MEDS: sertraline 100 mg Tablet 200 MG PO (08:52)
[2021-04-10] MEDS: pantoprazole DR 40 mg Tablet PO (08:54)
--- NOTE | 2021-04-10 11:37 | PC.CHAP ---
Pastoral Care Encounter/Spiritual Assessment Type of Contact [] Declined dairy products maker visit [] Patient/Family/Request visit [] Outpatient visit [] Follow-up visit [] Physician referral [] Code/Alert [x] Routine visit [] Staff referral [] Actively dying [] Patient sleeping [] Family support [] [] Out of room [] Palliative care [] [] Receiving care in room [] Pre-surgical visit [] Trauma [] Long length of stay [] ICU visit [] Other: Relational/Emotional Strength [x] Patient feels connected with others/family/visitors/staff [] Distress [] Loneliness/isolation [] Abandonment Spirituality of Patient [] Person of Mary [] Attends Voodoo of their Mary [x] Believes in Prayer [] Reads Bible or Hoahaoism materials [] There are Spiritual issues to be addressed Hand Stonecutter Interventions [x] Prayer [x] Active listening [x] Non-anxious presence [] Spiritual/emotional support [] Crisis/trauma care [] Spiritual counseling [] Bereavement support [] Provided bereavement packet [] Provided Bible/devotional materials [] Provided toy/stuffed animal, coloring book to patient or family member [] Provided Communion [] Anointing/[place] [] Salvation [x] Completed spiritual assessment [] Other: Impact on Illness or Injury [] Angry [] Fearful [] Anxious [] Often cries [] Exhaustion [] Unable to work [] Unable to attend yarsanism [] Unable to walk/stand [] Unable to read [] Unable to drive [] Unable to eat/drink [] Unable to sleep [] Unable to be with family [] Patient intubated [] Other: Summary Time spent with patient 10 min
--- NOTE | 2021-04-10 16:08 | PC.RESP ---
PULMONARY REHAB INFORMATION SENT TO PATIENT.
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
[2021-04-11] VITALS (8 sets, daily range): BP systolic 97–123; BP diastolic 64–81; PULSE 63–76; RESP 14–18; TEMP 36.4–36.9; O2SAT 93–96
[2021-04-11] MEDS: heparin 5,000 unit/mL INJ 1 mL 5000 UNIT SUBCUT ×2 (01:52→14:21)
[2021-04-11] MEDS: sodium chloride 0.9% 1,000 ML 125 ML IV ×3 (04:56→14:57)
[2021-04-11] MEDS: pantoprazole DR 40 mg Tablet PO (07:42)
[2021-04-11] MEDS: aspirin 81 mg EC Tablet PO (07:42)
[2021-04-11] MEDS: sertraline 100 mg Tablet 200 MG PO (07:42)
[2021-04-11 09:06] LABS: Basophils % 0.2 %; Eosinophils # 0.1 10^3/uL (0.0-0.8); Eosinophils % 0.7 %; Hematocrit 35.5 % (37.0-47.0); Hemoglobin 11.1 g/dL (11.5-15.3); Lymphocytes # 1.9 10^3/uL (0.8-4.8); Lymphocytes % 19.4 %; Mean Corpuscular HGB Conc 31.3 g/dL (30.0-36.0); Mean Corpuscular Hemoglobin 29.4 pg (28.0-34.0); Mean Corpuscular Volume 93.9 fl (81-99); Mean Platelet Volume 11.4 fL (7.4-10.4); Monocytes # 0.8 10^3/uL (0.2-0.9); Monocytes % 7.7 %; Neutrophils # 6.99 10^3/uL (1.8-7.7); Neutrophils % 71.6 %; Nucleated Red Blood Cells % 0 %; Platelet Count 226 10^3/cmm (130-400); Red Blood Count 3.78 10^6/uL (4.1-5.3); Red Cell Distribution Width 13.5 % (12.1-15.1); White Blood Count 9.8 10^3/uL (4.0-10.0)
[2021-04-11 09:55] LABS: Alanine Aminotransferase 28 U/L (0-33); Albumin Level 3.5 g/dL (3.5-5.2); Alkaline Phosphatase 65 IU/L (35-105); Anion Gap 15.3 (5-19); Aspartate Amino Transferase 29 U/L (0-32); Blood Urea Nitrogen 47 mg/dL (8-23); Calcium 8.6 mg/dL (8.5-10.5); Carbon Dioxide 27 mmol/L (22-29); Chloride 99 mmol/L (98-107); Globulin 2.5 g/dL (1.3-4.6); Glucose 99 mg/dL (65-115); Osmolality Calculated 298 mOsm/kg (285-295); Potassium 3.3 mmol/L (3.5-5.1); Sodium 138 mmol/L (136-145); Total Bilirubin 0.3 mg/dL (0.15-1.2)
[2021-04-11 09:56] LABS: Creatine Phosphokinase 178 U/L (26-192)
[2021-04-11 09:57] LABS: Procalcitonin 0.17 ng/mL (0-0.5)
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
--- NOTE | 2021-04-11 21:56 | XRR_ITS ---
PROCEDURE INFORMATION: Exam: XR Pelvis Exam date and time: 04/11/2021 9:56 PM Age: 70 years old Clinical indication: Pelvic pain; Additional info: Endorses pain in bottom , , assess for any possible FX TECHNIQUE: Imaging protocol: XR pelvis. Views: 1 or 2 view. Total images: 1 COMPARISON: CR XR hip LT 2-3V wo/w pel* [id number] 10/27/2020 3:39 PM FINDINGS: Bones/joints: No visible evidence of active or acute osseous pathology. Mild chronic sacroiliitis. Degenerative disease and degenerative disc disease of visualized lumbosacral spine with mild levoscoliosis. Osteopenia/osteoporosis. Soft tissues: Unremarkable. XR/XR pelvis 1-2V* [id number] IMPRESSION: Nonacute. Radiation Dose CTDIVOL = (mGy): DLP = (mGy-cm)
[2021-04-12] VITALS (7 sets, daily range): BP systolic 98–135; BP diastolic 55–75; PULSE 63–95; RESP 16–18; TEMP 36.4–36.8; O2SAT 93–97
[2021-04-12] MEDS: heparin 5,000 unit/mL INJ 1 mL 5000 UNIT SUBCUT ×2 (01:23→14:23)
[2021-04-12 07:13] LABS: Basophils % 0.2 %; Eosinophils # 0.1 10^3/uL (0.0-0.8); Eosinophils % 0.8 %; Hematocrit 32.3 % (37.0-47.0); Hemoglobin 10.3 g/dL (11.5-15.3); Lymphocytes # 1.9 10^3/uL (0.8-4.8); Mean Corpuscular HGB Conc 31.9 g/dL (30.0-36.0); Mean Corpuscular Volume 94.2 fl (81-99); Mean Platelet Volume 10.8 fL (7.4-10.4); Monocytes # 0.7 10^3/uL (0.2-0.9); Monocytes % 7.5 %; Neutrophils # 6.19 10^3/uL (1.8-7.7); Neutrophils % 70.2 %; Nucleated Red Blood Cells % 0 %; Platelet Count 198 10^3/cmm (130-400); Red Blood Count 3.43 10^6/uL (4.1-5.3); Red Cell Distribution Width 13.4 % (12.1-15.1); White Blood Count 8.8 10^3/uL (4.0-10.0)
[2021-04-12 07:53] LABS: Anion Gap 12.1 (5-19); Blood Urea Nitrogen 30 mg/dL (8-23); Calcium 8.4 mg/dL (8.5-10.5); Carbon Dioxide 27 mmol/L (22-29); Chloride 101 mmol/L (98-107); Glucose 100 mg/dL (65-115); Osmolality Calculated 290 mOsm/kg (285-295); Potassium 3.1 mmol/L (3.5-5.1); Sodium 137 mmol/L (136-145)
[2021-04-12] MEDS: sertraline 100 mg Tablet 200 MG PO (08:07)
[2021-04-12] MEDS: psyllium powder Pkt 1 PACKET PO ×2 (08:07→17:40)
[2021-04-12] MEDS: pantoprazole DR 40 mg Tablet PO (08:07)
[2021-04-12] MEDS: aspirin 81 mg EC Tablet PO (08:07)
[2021-04-12] MEDS: potassium chloride ER 20 mEq Tablet 40 MEQ PO (12:08)
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
[2021-04-12] MEDS: atorvastatin 40 mg Tablet PO (20:07)
[2021-04-13 03:12] VITALS: BP 105/70; PULSE 65; RESP 17; TEMP 36.7; O2SAT 93
[2021-04-13] MEDS: heparin 5,000 unit/mL INJ 1 mL 5000 UNIT SUBCUT ×2 (03:39→14:59)
[2021-04-13 05:07] LABS: Basophils % 0.3 %; Eosinophils # 0.1 10^3/uL (0.0-0.8); Eosinophils % 1.1 %; Hematocrit 35.1 % (37.0-47.0); Hemoglobin 10.6 g/dL (11.5-15.3); Lymphocytes # 1.7 10^3/uL (0.8-4.8); Mean Corpuscular HGB Conc 30.2 g/dL (30.0-36.0); Mean Corpuscular Hemoglobin 29.5 pg (28.0-34.0); Mean Corpuscular Volume 97.8 fl (81-99); Mean Platelet Volume 10.8 fL (7.4-10.4); Monocytes # 0.6 10^3/uL (0.2-0.9); Monocytes % 7.6 %; Neutrophils # 4.97 10^3/uL (1.8-7.7); Neutrophils % 67.5 %; Nucleated Red Blood Cells % 0 %; Platelet Count 193 10^3/cmm (130-400); Red Blood Count 3.59 10^6/uL (4.1-5.3); Red Cell Distribution Width 13.4 % (12.1-15.1); White Blood Count 7.4 10^3/uL (4.0-10.0)
[2021-04-13 05:40] LABS: Alanine Aminotransferase 24 U/L (0-33); Albumin Level 2.9 g/dL (3.5-5.2); Alkaline Phosphatase 53 IU/L (35-105); Aspartate Amino Transferase 24 U/L (0-32); Blood Urea Nitrogen 21 mg/dL (8-23); Calcium 8.6 mg/dL (8.5-10.5); Carbon Dioxide 28 mmol/L (22-29); Chloride 103 mmol/L (98-107); Glucose 90 mg/dL (65-115); Magnesium 1.6 mg/dL (1.7-2.3); Osmolality Calculated 293 mOsm/kg (285-295); Phosphorus 1.5 mg/dL (2.5-4.5); Sodium 140 mmol/L (136-145); Total Bilirubin 0.2 mg/dL (0.15-1.2); Total Protein 5.9 g/dL (6.6-8.7)
[2021-04-13 05:47] LABS: Anion Gap 12.5 (5-19); Potassium 3.5 mmol/L (3.5-5.1)
[2021-04-13 07:16] VITALS: BP 118/76; PULSE 67; RESP 17; TEMP 36.7; O2SAT 94
[2021-04-13 08:36] VITALS: PULSE 81; RESP 20; O2SAT 97
[2021-04-13] MEDS: sertraline 100 mg Tablet 200 MG PO (08:59)
[2021-04-13] MEDS: pantoprazole DR 40 mg Tablet PO (08:59)
[2021-04-13] MEDS: aspirin 81 mg EC Tablet PO (08:59)
[2021-04-13] MEDS: psyllium powder Pkt 1 PACKET PO (08:59)
[2021-04-13] MEDS: magnesium sulfate premix 2 GM/50 ML PIGGYBACK IV (10:03)
[2021-04-13 12:00] VITALS: BP 125/81; PULSE 75; RESP 18; TEMP 36.7; O2SAT 95
--- NOTE | 2021-04-13 12:39 | PM.DCS ---
Discharge Providers Date of Admission: 04/10/21 01:57 Date of Discharge: April 13, 2021 Attending Provider at Admission: Philip Rossi Attending Provider at Discharge: Deonte Phillips MD Primary Care Provider: GONZALO Webb Diagnoses at Discharge Discharge Diagnosis (1) Acute renal failure: Status: Acute (2) Neglected elder: Status: Acute Qualifiers: Encounter type: initial encounter Qualified Code(s): T74.01XA - Adult neglect or abandonment, confirmed, initial encounter (3) Dementia: Status: Chronic Qualifiers: Dementia behavioral disturbance: with behavioral disturbance Dementia type: unspecified type Qualified Code(s): F03.91 - Unspecified dementia with behavioral disturbance (4) Failure to thrive: Status: Acute Qualifiers: Failure to thrive age range: in adult Qualified Code(s): R62.7 - Adult failure to thrive (5) COPD, moderate: Status: Chronic (6) Benign essential hypertension: Status: Chronic Reason for Visit Reason for Visit: POSSIBLE UTI Hospital Course Hospital Course This is a 70-year-old female with past medical history of anxiety, depression, COPD, hypertension, hyperlipidemia, and dementia who presents [facility] with concerns of shortness of breath. For shortness of breath, troponins remain unremarkable, no significant evidence of pneumonia, or CHF, no evidence of COPD exacerbation, remained asymptomatic during the hospitalization Patient had elevated troponin during her hospitalization, no complaints of chest pain, echocardiogram was a poor quality study, discharged on aspirin, statin, with close follow-up with cardiology as outpatient for consideration of stress testing On admission had evidence of neglect, failure to thrive, worsening dementia, patient's case was hotlined. After discussion with patient and family, after shared decision making with patient and family, decision was made to discharge home to the care of her family, patient and family declined residential stay, declined home health care Patient had evidence of mild deep tissue injury, over the sacrum, advised to remain ambulatory, continue to monitor Dementia, advancing dementia, during my assessment she follows commands alert to person, to place, not to time, does require redirection at times, likely worsening of dementia Patient had YOCASTA, improved with IV fluids, hold hydrochlorothiazide on discharge Physical Exam Const: COMMON NORMALS: no acute distress ORIENTATION/CONSCIOUSNESS: Yes awake, Yes oriented to person and Yes oriented to place; not oriented to time Resp: COMMON NORMALS: normal respiratory effort, No retractions, No use of accessory muscles and clear to auscultation bilaterally AUSCULTATION: clear to auscultation bilaterally Cardio: COMMON NORMALS: regular rate, regular rhythm, S1 normal heart sound present and S2 normal heart sound present RATE: regular rate RHYTHM: regular rhythm HEART SOUNDS: S1 normal heart sound present and S2 normal heart sound present GI: COMMON NORMALS: Normal to inspection, nondistended, normoactive bowel sounds present, Soft to palpation and non-tender PALPATION: Yes Soft to palpation Extremity: COMMON NORMALS: no pedal edema Neuro: SENSORIUM/ORIENTATION: Yes oriented to person, Yes oriented to place and No oriented to time Psych: COMMON NORMALS: mental status grossly normal Urinary Catheter Management^: Santos: Cath Placed During This Visit: yes Reason for Continuing Indwelling Catheter: Accurate Measurement of Urinary Output in Critically Ill Patients Urinary Catheter Date of Insertion: 04/10/21 Urinary Catheter Time of Insertion: 04:00 Discharge Data Data Completed and Pending: Completed Studies During Hospitalization Category Date Time Status XR chest 1V [place]elin ble [id number] Stat Exams 04/09/21 20:08 Completed XR pelvis 1-2V* 7 [id number] Routine Exams 04/11/21 21:56 Completed CV. echo complete * [id number] Routine Ultrasound 04/10/21 02:12 Completed Pending at discharge Category Date Time Status Complete Blood Co unt w/Auto AM LABS Lab 04/14/21 04:00 Ordered Complete Blood Co unt w/Auto AM LABS Lab 04/15/21 04:00 Ordered Comprehensive Met abolic Panel AM LA BS Lab 04/14/21 04:00 Ordered Comprehensive Met abolic Panel AM LA BS Lab 04/15/21 04:00 Ordered Magnesium AM LABS Lab 04/14/21 04:00 Ordered Magnesium AM LABS Lab 04/15/21 04:00 Ordered Phosphorus AM LAB S Lab 04/14/21 04:00 Ordered Phosphorus AM LAB S Lab 04/15/21 04:00 Ordered Labs from last 24 hours 04/13/21 04/13/21 04:21 04:21 WBC 7.4 RBC 3.59 L Hgb 10.6 L Hct 35.1 L MCV 97.8 MCH 29.5 MCHC 30.2 D RDW 13.4 Plt Count 193 MPV 10.8 H Neut % (Auto) 67.5 Lymph % (Auto) 23.0 [place] % (Auto) 7.6 Eos % (Auto) 1.1 Baso % (Auto) 0.3 Neut # (Auto) 4.97 Lymph # (Auto) 1.7 [place] # (Auto) 0.6 Eos # (Auto) 0.1 Baso # (Auto) 0.0 Nucleated RBC % (a uto) 0 Nucleated RBCs # 0.0 Sodium 140 Potassium 3.5 Chloride 103 Carbon Dioxide 28 Anion Gap 12.5 BUN 21 Creatinine 0.8 GFR Calculation Not Reportable Glucose 90 Calculated Osmolal ity 293 Calcium 8.6 Phosphorus 1.5 L Magnesium 1.6 L Total Bilirubin 0.2 AST 24 ALT 24 Alkaline Phosphata se 53 Total Protein 5.9 L Albumin 2.9 L Globulin 3.0 Vitals: Last Vital Signs Temp 98.0 F 04/13/21 07:16 Pulse 81 04/13/21 08:36 Resp 20 H 04/13/21 08:36 BP 118/76 04/13/21 07:16 Pulse Ox 97 04/13/21 08:36 Discharge Plan Discharge Patient Disposition: Home Condition: Stable Prescriptions: New atorvastatin 40 mg Tablet 40 mg PO BEDTIME 30 Days Qty: 30 RF: 0 aspirin 81 mg Tablet,Delayed Release (Dr/Ec) 81 mg PO DAILY 30 Days Qty: 30 RF: 0 pantoprazole 40 mg Tablet,Delayed Release (Dr/Ec) 40 mg PO DAILY 30 Days Qty: 30 RF: 0 Continued (DME) CAM WALKER See Rx Instructions .ROUTE .MEDSUPPLY Qty: 1 RF: 0 albuterol sulfate [ProAir HFA] 90 mcg/actuation HFA aerosol inhaler 2 puff INHALATION Q4H PRN (Reason: shortness of breath or wheezing) 90 Days Qty: 3 RF: 1 budesonide-formoterol [Symbicort] 160-4.5 mcg/actuation HFA aerosol inhaler 2 puff INHALATION BID 90 Days Qty: 3 RF: 1 famotidine 20 mg tablet 20 mg PO DAILY 90 Days Qty: 90 RF: 1 lisinopril 10 mg tablet 10 mg PO BID 90 Days Qty: 180 RF: 1 sertraline [Zoloft] 100 mg tablet 200 mg PO DAILY 90 Days Qty: 180 RF: 1 Discontinued lovastatin 20 mg tablet 20 mg PO DAILY 90 Days Qty: 90 RF: 1 acetaminophen 325 mg Tablet 650 mg PO Q6H PRN (Reason: pain) Qty: 0 RF: 0 hydrochlorothiazide 25 mg tablet 25 mg PO DAILY RF: 0 Discharge Orders: Discharge Order (Routine); Ordered 04/13/21 Ordered By: Deonte Phillips Referrals: Austin Chisholm MD [Physician] - 05/11/21 12:15 pm (chest pain) Nadia Altamirano FNP-C [Primary Care Provider] - ([facility] will call you to set up an appointment.) Discharge Diet: Cardiac Discharge Activity: Resume usual activity Patient Instructions: Aspirin (By mouth) (Rosa Extra Strength, Rosa Aspirin Children[facility],..., Atorvastatin (By mouth) (Lipitor), Pantoprazole (By mouth) (Protonix), Acute Kidney Injury (DC), Dementia (GEN), Elder Neglect (DC), COPD Stoplight, Opioid Safety Activity Restrictions/Additional Instructions: - Discharge Attestations Time Spent in Discharge Care*: less than 30 min Status at Discharge: Cognitive status at discharge: moderately impaired cognition, Behavioral status at discharge: cooperative, Quality Metrics Clinical Quality Measures During this hospital stay, did patient experience: None Coding Level of Care Code Acute Chg FW DC note Exam Detailed Diagnoses Acute renal failure N17.9 Neglected elder T74.01XA Encounter type: initial encounter Dementia F03.91 Dementia behavioral disturbance: with behavioral disturbance Dementia type: unspecified type Failure to thrive R62.7 Failure to thrive age range: in adult COPD, moderate J44.9 Benign essential hypertension I10
--- NOTE | 2021-04-13 15:57 | PC.OT ---
treatment held due to patient is scheduled for discharge.
[2021-04-13 16:00] VITALS: BP 110/74; PULSE 80; RESP 18; TEMP 36.6; O2SAT 94
[2021-04-13 18:28] VITALS: BP 110/74; PULSE 80; RESP 18; TEMP 36.6; O2SAT 94
--- NOTE | 2021-04-20 12:37 | PC.SOCIAL ---
spoke with the [facility] and they called the patient and family 3 different times regarding the follow up appointment after discharge and patient didn't show up to the appointment.
== END 2021-04-13 18:31 | disposition home or self-care (01) ==
LOC: ER 04-10 01:18 → MEDSURG 04-10 02:43
PROVIDERS: Emergency Medicine; Internal Medicine; Admitting Provider Hospitalist; Emergency Provider Emergency Medicine; PCP Nurse Practitioner Family; Visit Provider Family Medicine
DX: N17.9 Acute kidney failure, unspecified (principal); T74.01XA Adult neglect or abandonment, confirmed, initial encounter; F03.91 Unspecified dementia, unspecified severity, with behavioral disturbance; R62.7 Adult failure to thrive; Z68.25 Body mass index [BMI] 25.0-25.9, adult; J44.9 Chronic obstructive pulmonary disease, unspecified; I10 Essential (primary) hypertension; F41.9 Anxiety disorder, unspecified; F32.9 Major depressive disorder, single episode, unspecified; E78.5 Hyperlipidemia, unspecified; R79.89 Other specified abnormal findings of blood chemistry; Z87.891 Personal history of nicotine dependence
CPT/HCPCS: 36415; 51702; 71045; 72170; 80048; 80053; 81003; 82550; 83690; 83735; 84100; 84145; 84484; 85025; 87426; 93005; 93306; 94640; 96361; 96365; 96372; 97116; 97161; 97166; 97530; 99285; G0378; J1644; J3475; J7030

== ENCOUNTER 2021-04-19 11:24 | Observation (INO) | payer OTHER, SELFPAY ==
[2021-04-19] VITALS (20 sets, daily range): BP systolic 79–112; BP diastolic 53–73; PULSE 66–77; RESP 16–18; TEMP 36.5–36.6; O2SAT 93–99; BMI 26.6
--- NOTE | 2021-04-19 11:53 | XRR_ITS ---
PROCEDURE INFORMATION: Exam: XR Chest Exam date and time: 04/19/2021 11:53 AM Age: 70 years old Clinical indication: Shortness of breath; Additional info: Eval infection TECHNIQUE: Imaging protocol: XR of the chest. Views: 1 view. COMPARISON: CR (CHEST, ) 04/09/2021 8:14 PM FINDINGS: Lungs: Unremarkable. No consolidation. Pleural spaces: Unremarkable. No pleural effusion. No pneumothorax. Heart/Mediastinum: Unremarkable. No cardiomegaly. Bones/joints: Unremarkable. XR/XR chest 1V portable [id number] IMPRESSION: Negative for infiltrate Radiation Dose CTDIVOL = (mGy): DLP = (mGy-cm)
--- NOTE | 2021-04-19 11:54 | ECG_ITS ---
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 Measurements Intervals [place] Rate: 70 P: 72 NM: 150 QRS: 27 QRSD: 80 T: 64 QT: 412 QTc: 446 Interpretive Statements SINUS RHYTHM WITH SINUS ARRHYTHMIA NONSPECIFIC T-WAVE ABNORMALITY Compared to ECG 04/10/2021 01:59:49 No significant changes Electronically Signed On 04-19-2021 18:20:33 CDT by Lisy Meraz M.D. [id number]
--- NOTE | 2021-04-19 11:56 | W.ED.GENADLT ---
HPI - General Adult General: Chief complaint: Extremity Problem,Nontraumatic Stated complaint: RIGHT THIGH PAIN; HYPOTENSION Time Seen by Provider: 04/19/21 11:35 History of Present Illness: HPI narrative: Patient is a 70-year-old female with history of moderate COPD who presents the emergency room after patient was found down in her trailer next to cockroaches earlier today. EMS was alerted, by time EMS arrived, patient had a blood pressure 70/52 and complaining of left-sided thigh pain. Patient received 600 mL of NS with improvement to the heart rate. Per EMS, rest of history is limited patient has no other focal complaints other than right-sided inner thigh pain. It is unclear how long this pain has been going on for. Patient denies any fall, chest pain, shortness breath, palpitation, abdominal complaints, nausea/vomiting, fever/chills, or any other issues at this time. Onset: unknown Duration: ongoing Location:home Severity:moderate Review of Systems Narrative: Constitutional: No fever, no chills. HEENT: No vision changes CV: No chest pain, no palpitations PULM: no cough, no dyspnea. GI: No abdominal pain, no N/V/D. : No dysuria MSKEL: No muscle pain, +R inner thigh pain SKIN: No new rashes, no lesions. NEURO: No headache, no focal weakness. HEME: No visible bruises PSYCH: Normal mood PFSH ED PFSH: Medical History Acid reflux Anxiety and depression Benign essential hypertension COPD, moderate Dementia Dyslipidemia Elevated troponin Surgical History Hx of total hysterectomy Social History Smoking and tobacco status: former smoker Second hand smoke exposure: Yes Smoking risk assessment/counseling performed?: No Alcohol intake: never Desire information about alcohol rehabilitation?: No Counseling given: No Desire information about substance/drug rehabilitation?: No Counseling given: No Adopted: No Caregiver/support person: No Lives independently: No Household members: spouse and family Housing: House Marital status: service: No Current occupational status: disabled Pets and animals: Yes History of recent travel: No Current gender identity: Female Female Reproductive History: Date of last menstrual period: 09/18/20 Para: 3 Physical Exam Narrative: EXAM NARRATIVE: Head: Atraumatic Eyes: PERRL, conjunctiva without injection ENT: Mucous membrane moist NECK: Supple, ROM intact LUNGS: LCTAB, no crackles/rhonchi CV: RRR ABDOMEN: Soft, nontender in all quadrants EXTREMITY: Normal ROM, no tenderness palpation on the inner aspect of the right leg SKIN: No rash or erythema, no crepitus, no purpura NEURO: Awake and alert, no focal motor deficits PSYCH: Normal mood and affect BACK: +mild erytheam and skin erosion at the glute area Course Vital Signs: Vital signs: Vital Signs Temperature 97.9 F 04/22/21 14:34 Pulse Rate 78 04/22/21 14:34 Respiratory Rate 17 04/22/21 14:34 Blood Pressure 102/63 04/22/21 14:34 Pulse Oximetry 92 04/22/21 14:34 MDM - General Adult MDM Narrative: Medical decision making narrative: 70-year-old female sent to the emergency room for evaluation of right inner thigh pain. On exam, patient is HDS with no focal tenderness palpation over the right inner thigh. WBC of 19.5 today. Creatinine 1.2 complex is similar with baseline. CT legs showed possible soft tissue infection. CT abdomen pelvis negative for any acute findings. Ultrasound gallbladder showing no signs of cholecystitis despite distended gallbladder. At this time, patient received ceftriaxone in the emergency room. Will admitted to hospital for further evaluation of symptoms. Disposition: Admission Lab Data: Labs: Lab Results 04/19/21 04/19/21 04/19/21 12:03 12:26 12:26 WBC 19.5 10^3/uL H 10 ^3/uL (4.0-10.0) Corrected WBC Gi Asst RBC 3.85 10^6/uL L 10 ^6/uL (4.1-5.3) Hgb 11.5 g/dL g/dL (11.5-15.3) Hct 36.2 % L % (37.0-47.0) MCV 94.0 fl fl (81-99) MCH 29.9 pg pg (28.0-34.0) MCHC 31.8 g/dL g/dL (30.0-36.0) RDW 13.6 % % (12.1-15.1) Plt Count 305 10^3/cmm 10^3 /cmm (130-400) MPV 10.5 fL H fL (7.4-10.4) Gran % Gi Asst Neut % (Auto) 89.9 % % Lymph % (Auto) 4.3 % % [place] % (Auto) 4.9 % % Eos % (Auto) 0.1 % % Baso % (Auto) 0.2 % % Neut # (Auto) 17.54 10^3/uL H 1 0^3/uL (1.8-7.7) Lymph # (Auto) 0.8 10^3/uL 10^3/ uL (0.8-4.8) [place] # (Auto) 1.0 10^3/uL H 10^ 3/uL (0.2-0.9) Eos # (Auto) 0.0 10^3/uL 10^3/ uL (0.0-0.8) Baso # (Auto) 0.0 10^3/uL 10^3/ uL (0.0-0.1) Absolute Gran (aut o) Gi Asst Nucleated RBC % (a uto) 0 % % Nucleated RBCs # 0.0 /100WBC /100W BC ESR Specimen Type Arterial Sample Site Brachial, left ABG pH 7.45 (7.35-7.45) ABG pCO2 40.6 mmHg mmHg (35-45) ABG pO2 74.0 mmHg L mmHg (80.0-100.0) ABG HCO3 27.9 mmol/L H mmo l/L (22-26) ABG Base Excess 3.5 mmol/L H mmol /L (-2.0-2.0) Nacho Test Pos Hematocrit 33.3 % L % (37-47) O2 Delivery Device Room air FiO2 21.0 % % Analytical Data Scientist ID Cak Sodium 136 mmol/L mmol/L (136-145) Potassium 4.0 mmol/L mmol/L (3.5-5.1) Chloride 97 mmol/L L mmol/ L (98-107) Carbon Dioxide 28 mmol/L mmol/L (22-29) Anion Gap 15.0 (5-19) BUN 27 mg/dL H mg/dL (8-23) Creatinine 1.2 mg/dL H mg/dL (0.5-0.9) GFR Calculation Not Reportable Glucose 111 mg/dL mg/dL (65-115) Calculated Osmolal ity 288 mOsm/kg mOsm/ kg (285-295) Lactate Calcium 9.0 mg/dL mg/dL (8.5-10.5) Total Bilirubin 0.4 mg/dL mg/dL (0.15-1.2) AST 29 U/L U/L (0-32) ALT 31 U/L U/L (0-33) Alkaline Phosphata se 95 IU/L IU/L (35-105) Creatine Kinase Troponin T Baselin e Troponin T 120 Min [place] Delta Troponin T C-Reactive Protein Total Protein 6.8 g/dL g/dL (6.6-8.7) Albumin 3.6 g/dL g/dL (3.5-5.2) Globulin 3.2 g/dL g/dL (1.3-4.6) Lipase 13 U/L U/L (13-60) Procalcitonin Ethyl Alcohol 04/19/21 04/19/21 04/19/21 12:26 12:26 12:26 WBC Corrected WBC RBC Hgb Hct MCV MCH MCHC RDW Plt Count MPV Gran % Neut % (Auto) Lymph % (Auto) [place] % (Auto) Eos % (Auto) Baso % (Auto) Neut # (Auto) Lymph # (Auto) [place] # (Auto) Eos # (Auto) Baso # (Auto) Absolute Gran (aut o) Nucleated RBC % (a uto) Nucleated RBCs # ESR Specimen Type Sample Site ABG pH ABG pCO2 ABG pO2 ABG HCO3 ABG Base Excess Nacho Test Hematocrit O2 Delivery Device FiO2 Analytical Data Scientist ID Sodium Potassium Chloride Carbon Dioxide Anion Gap BUN Creatinine GFR Calculation Glucose Calculated Osmolal ity Lactate 1.1 mmol/L mmol/L (0.5-2.2) Calcium Total Bilirubin AST ALT Alkaline Phosphata se Creatine Kinase Troponin T Baselin e 57 ng/L H ng/L (0-10) Troponin T 120 Min [place] Delta Troponin T C-Reactive Protein Total Protein Albumin Globulin Lipase Procalcitonin Cancelled Ethyl Alcohol 04/19/21 04/19/21 04/19/21 12:26 12:26 15:03 WBC Corrected WBC RBC Hgb Hct MCV MCH MCHC RDW Plt Count MPV Gran % Neut % (Auto) Lymph % (Auto) [place] % (Auto) Eos % (Auto) Baso % (Auto) Neut # (Auto) Lymph # (Auto) [place] # (Auto) Eos # (Auto) Baso # (Auto) Absolute Gran (aut o) Nucleated RBC % (a uto) Nucleated RBCs # ESR Cancelled Specimen Type Sample Site ABG pH ABG pCO2 ABG pO2 ABG HCO3 ABG Base Excess Nacho Test Hematocrit O2 Delivery Device FiO2 Analytical Data Scientist ID Sodium Potassium Chloride Carbon Dioxide Anion Gap BUN Creatinine GFR Calculation Glucose Calculated Osmolal ity Lactate Calcium Total Bilirubin AST ALT Alkaline Phosphata se Creatine Kinase 223 U/L H U/L (26-192) Troponin T Baselin e Troponin T 120 Min [place] 62.00 ng/L H ng/L (0-10) Delta Troponin T 5.00 ABS# ABS# (0-10) C-Reactive Protein 10.0 mg/L H mg/L (0.0-4.9) Total Protein Albumin Globulin Lipase Procalcitonin 0.03 ng/mL ng/mL (0-0.5) Ethyl Alcohol 04/19/21 15:03 WBC Corrected WBC RBC Hgb Hct MCV MCH MCHC RDW Plt Count MPV Gran % Neut % (Auto) Lymph % (Auto) [place] % (Auto) Eos % (Auto) Baso % (Auto) Neut # (Auto) Lymph # (Auto) [place] # (Auto) Eos # (Auto) Baso # (Auto) Absolute Gran (aut o) Nucleated RBC % (a uto) Nucleated RBCs # ESR Specimen Type Sample Site ABG pH ABG pCO2 ABG pO2 ABG HCO3 ABG Base Excess Nacho Test Hematocrit O2 Delivery Device FiO2 Analytical Data Scientist ID Sodium Potassium Chloride Carbon Dioxide Anion Gap BUN Creatinine GFR Calculation Glucose Calculated Osmolal ity Lactate Calcium Total Bilirubin AST ALT Alkaline Phosphata se Creatine Kinase Troponin T Baselin e Troponin T 120 Min [place] Delta Troponin T C-Reactive Protein Total Protein Albumin Globulin Lipase Procalcitonin Ethyl Alcohol < 10 mg/dL mg/dL (0-10) Imaging Data^: Other Imaging: Radiologist's impression: [address] [id number] ReportSigned Patient: Zuleima Morejon #: [id number]: 9At#:[id number]/Sex: 70 / FADM Date: 04/19/21Loc: ERRoom/Bed:Attending Dr: Ordering Provider/Ordering MD: Carolina Gordillo MD Date of Service: 04/19/21 Procedure(s): [place] [address] Accession Number(s): [id number] Report Number: [id number] PROCEDURE INFORMATION: Exam: US Duplex Right Lower Extremity Veins, Limited Exam date and time: 04/19/2021 11:58 AM Age: 70 years old Clinical indication: Pain; Leg, lower; Right; Additional info: Eval for dvt TECHNIQUE: Imaging protocol: Real-time Duplex ultrasound of the Right Lower Extremity with 2-D maldonado scale, color Doppler flow and spectral waveform analysis with image documentation. Limited exam was focused on the right lower extremity veins. COMPARISON: CT abdomen pelvis w con* [id number] 11/23/2018 6:38 PM FINDINGS: Right deep veins: Unremarkable. The common femoral, femoral, proximal profunda femoral and popliteal veins are patent without thrombus. Normal Doppler waveforms. Normal compressibility and/or augmentation response. Right superficial veins: Unremarkable. Saphenofemoral junction is patent without thrombus. Soft tissues: Unremarkable. US/[place] [id number] IMPRESSION: No evidence of deep vein thrombosis. Radiation Dose CTDIVOL = (mGy): DLP = (mGy-cm) Dictated By:Moy Fuchs By:Moy Fuchs Date/Time:04/19/21 1335DD/ [address] [address]YGli ReportSigned Patient: Zuleima Morejon #: [id number]: 9Acct#:[id number]/Sex: FAD Date: 04/19/21Loc: ERRoom/Bed:Attending Dr: Ordering Provider/Ordering MD: Carolina Gordillo MD Date of Service: 04/19/21 Procedure(s): XR chest 1V portable [id number] Accession Number(s): [id number] Report Number: [id number] PROCEDURE INFORMATION: Exam: XR Chest Exam date and time: 04/19/2021 11:53 AM Age: 70 years old Clinical indication: Shortness of breath; Additional info: Eval infection TECHNIQUE: Imaging protocol: XR of the chest. Views: 1 view. COMPARISON: CR (CHEST, ) 04/09/2021 8:14 PM FINDINGS: Lungs: Unremarkable. No consolidation. Pleural spaces: Unremarkable. No pleural effusion. No pneumothorax. Heart/Mediastinum: Unremarkable. No cardiomegaly. Bones/joints: Unremarkable. XR/XR chest 1V portable [id number] IMPRESSION: Negative for infiltrate Radiation Dose CTDIVOL = (mGy): DLP = (mGy-cm) Dictated By:Trevor Rios MDSigned By:Trevor Rios MDSigned Date/Time:04/19/21 1540DD/ 1153 [facility] [place], [place] [address]MA Scan ReportSigned Patient: Zuleima Morejon #: [id number]: 1950cct#:[id number]/Sex: 70 / FADM Date: 04/19/21Loc: ERRoom/Bed:Attending Dr: Ordering Provider/Ordering MD: Carolina Gordillo MD Date of Service: 04/19/21 Procedure(s): CT abdomen pelvis w con* [id number] Accession Number(s): [id number] Report Number: [id number] PROCEDURE INFORMATION: Exam: CT Abdomen And Pelvis With Contrast Exam date and time: 04/19/2021 1:26 PM Age: 70 years old Clinical indication: Abdominal pain; Additional info: Eval infection TECHNIQUE: Imaging protocol: Computed tomography of the abdomen and pelvis with contrast. Radiation optimization: All CT scans at this facility use at least one of these dose optimization techniques: automated exposure control; mA and/or kV adjustment per patient size (includes targeted exams where dose is matched to clinical indication); or iterative reconstruction. Contrast material: VISI 320; Contrast volume: 75 ml; Contrast route: INTRAVENOUS (IV); COMPARISON: CT abdomen pelvis w con* [id number] 11/23/2018 6:38 PM RADIATION DOSE METRICS: Total DLP (mGy-cm): 1634.33 FINDINGS: Lungs: Emphysematous changes. Liver: Hepatic steatosis. Gallbladder and bile ducts: Gallbladder appears somewhat prominent, ultrasound could further evaluate this as clinically indicated. Pancreas: Normal. No ductal dilation. Spleen: Several calcified splenic granulomas. Adrenal glands: Normal. No mass. Kidneys and ureters: Normal. No hydronephrosis. Stomach and bowel: Diverticulosis without diverticulitis. Appendix: No evidence of appendicitis. Intraperitoneal space: Unremarkable. No free air. No significant fluid collection. Vasculature: Unremarkable. No abdominal aortic aneurysm. Lymph nodes: Unremarkable. No enlarged lymph nodes. Urinary bladder: Small amount of air in the urinary bladder, may be iatrogenic. Reproductive: Unremarkable as visualized. Bones/joints: L3-L4 vertebral body chronic fusion. Soft tissues: Unremarkable. Other findings: Constipation. CT/CT abdomen pelvis w con* [id number] IMPRESSION: 1. Gallbladder appears somewhat prominent, ultrasound could further evaluate this as clinically indicated. 2. Constipation. 3. Diverticulosis without diverticulitis. 4. Small amount of air in the urinary bladder, may be iatrogenic. 5. L3-L4 vertebral body chronic fusion. 6. Emphysematous changes. 7. Hepatic steatosis. 8. Several calcified splenic granulomas. Radiation Dose CTDIVOL = (mGy): DLP = 1634.33 (mGy-cm) Dictated By:Trevor Rios MDSigned By:Trevor Rios MDSigned Date/Time:04/19/21 1545DD/ [address] [id number] Scan ReportSigned Patient: Zuleima Morejon #: [id number]: 9[facility]#:[id number]/Sex: 70 / FADM Date: 04/19/21Loc: ERRoom/Bed:Attending Dr: Ordering Provider/Ordering MD: Carolina Gordillo MD Date of Service: 04/19/21 Procedure(s): CT femur RT w con [id number] Accession Number(s): [id number] Report Number: [id number] PROCEDURE INFORMATION: Exam: CT Right Lower Extremity With Contrast; Thigh Exam date and time: 04/19/2021 12:36 PM Age: 70 years old Clinical indication: Injury or trauma; Fall; Blunt trauma; Thigh or upper leg; Right; Additional info: Thigh to knee, evaluate for soft tissue necrotizing infectio TECHNIQUE: Imaging protocol: CT of the Right lower extremity with intravenous contrast was performed. Exam focused on the thigh. Radiation optimization: All CT scans at this facility use at least one of these dose optimization techniques: automated exposure control; mA and/or kV adjustment per patient size (includes targeted exams where dose is matched to clinical indication); or iterative reconstruction. Contrast material: VISI 320; Contrast volume: 75 ml; Contrast route: INTRAVENOUS (IV); COMPARISON: [place] [id number] 04/19/2021 12:38 PM RADIATION DOSE METRICS: Total DLP (mGy-cm): 986.08 FINDINGS: Bones/joints: Normal. No acute fracture or dislocation. Soft tissues: Minimal edema seen along the posteromedial aspect of the right proximal thigh without focal fluid collection may reflect a cellulitis in this region. CT/CT femur RT w con [id number] IMPRESSION: Minimal edema seen along the posteromedial aspect of the right proximal thigh without focal fluid collection may reflect a cellulitis in this region. Radiation Dose CTDIVOL = (mGy): DLP = 986.08 (mGy-cm) Dictated By:Trevor Rios MDSigned By:Trevor Rios MDSigned Date/Time:04/19/21 1548DD/ 1236 Discharge Plan Discharge Patient Disposition: Admitted As Inpatient Admit Provider: Franny Keys Condition: Fair Discharge Diet: Regular Discharge Activity: Increase activity as tolerated Coding Level of Care Code ED Chain Sales Consultant for Drake Mercado
[2021-04-19 12:14] LABS: ABG PCO2 40.6 mmHg (35-45); ABG PH Result 7.45 (7.35-7.45); Arterial Blood Gas Hematocrit 33.3 % (37-47); Base Excess ABG 3.5 mmol/L (-2.0-2.0); Blood Gas Allen Test Pos; Blood Gas Operator Identificat CAK; Blood Gas Sample Site Brachial, left; Blood Gas Sample Type Arterial; HCO3 ABG 27.9 mmol/L (22-26); Oxygen Device ROOM AIR
[2021-04-19 12:33] LABS: Basophils % 0.2 %; Eosinophils % 0.1 %; Hematocrit 36.2 % (37.0-47.0); Hemoglobin 11.5 g/dL (11.5-15.3); Lymphocytes # 0.8 10^3/uL (0.8-4.8); Lymphocytes % 4.3 %; Mean Corpuscular HGB Conc 31.8 g/dL (30.0-36.0); Mean Corpuscular Hemoglobin 29.9 pg (28.0-34.0); Mean Platelet Volume 10.5 fL (7.4-10.4); Monocytes % 4.9 %; Neutrophils # 17.54 10^3/uL (1.8-7.7); Neutrophils % 89.9 %; Nucleated Red Blood Cells % 0 %; Platelet Count 305 10^3/cmm (130-400); Red Blood Count 3.85 10^6/uL (4.1-5.3); Red Cell Distribution Width 13.6 % (12.1-15.1); White Blood Count 19.5 10^3/uL (4.0-10.0)
--- NOTE | 2021-04-19 12:36 | CTR_ITS ---
PROCEDURE INFORMATION: Exam: CT Right Lower Extremity With Contrast; Thigh Exam date and time: 04/19/2021 12:36 PM Age: 70 years old Clinical indication: Injury or trauma; Fall; Blunt trauma; Thigh or upper leg; Right; Additional info: Thigh to knee, evaluate for soft tissue necrotizing infectio TECHNIQUE: Imaging protocol: CT of the Right lower extremity with intravenous contrast was performed. Exam focused on the thigh. Radiation optimization: All CT scans at this facility use at least one of these dose optimization techniques: automated exposure control; mA and/or kV adjustment per patient size (includes targeted exams where dose is matched to clinical indication); or iterative reconstruction. Contrast material: VISI 320; Contrast volume: 75 ml; Contrast route: INTRAVENOUS (IV); COMPARISON: [place] [id number] 04/19/2021 12:38 PM RADIATION DOSE METRICS: Total DLP (mGy-cm): 986.08 FINDINGS: Bones/joints: Normal. No acute fracture or dislocation. Soft tissues: Minimal edema seen along the posteromedial aspect of the right proximal thigh without focal fluid collection may reflect a cellulitis in this region. CT/CT femur RT w con [id number] IMPRESSION: Minimal edema seen along the posteromedial aspect of the right proximal thigh without focal fluid collection may reflect a cellulitis in this region. Radiation Dose CTDIVOL = (mGy): DLP = 986.08 (mGy-cm)
[2021-04-19] MEDS: sodium chloride 0.9% 500 ML IV (12:37)
[2021-04-19 12:51] LABS: Lactate (Lactic Acid level) 1.1 mmol/L (0.5-2.2)
[2021-04-19 12:54] LABS: Troponin(5th) Baseline 57 ng/L (0-10)
[2021-04-19 12:56] LABS: Alanine Aminotransferase 31 U/L (0-33); Albumin Level 3.6 g/dL (3.5-5.2); Alkaline Phosphatase 95 IU/L (35-105); Aspartate Amino Transferase 29 U/L (0-32); Blood Urea Nitrogen 27 mg/dL (8-23); Carbon Dioxide 28 mmol/L (22-29); Chloride 97 mmol/L (98-107); Globulin 3.2 g/dL (1.3-4.6); Glucose 111 mg/dL (65-115); Lipase 13 U/L (13-60); Osmolality Calculated 288 mOsm/kg (285-295); Sodium 136 mmol/L (136-145); Total Bilirubin 0.4 mg/dL (0.15-1.2); Total Protein 6.8 g/dL (6.6-8.7)
[2021-04-19 12:58] LABS: Creatinine Clr Calc Pharmacy 42.2997
--- NOTE | 2021-04-19 13:26 | CTR_ITS ---
PROCEDURE INFORMATION: Exam: CT Abdomen And Pelvis With Contrast Exam date and time: 04/19/2021 1:26 PM Age: 70 years old Clinical indication: Abdominal pain; Additional info: Eval infection TECHNIQUE: Imaging protocol: Computed tomography of the abdomen and pelvis with contrast. Radiation optimization: All CT scans at this facility use at least one of these dose optimization techniques: automated exposure control; mA and/or kV adjustment per patient size (includes targeted exams where dose is matched to clinical indication); or iterative reconstruction. Contrast material: VISI 320; Contrast volume: 75 ml; Contrast route: INTRAVENOUS (IV); COMPARISON: CT abdomen pelvis w con* [id number] 11/23/2018 6:38 PM RADIATION DOSE METRICS: Total DLP (mGy-cm): 1634.33 FINDINGS: Lungs: Emphysematous changes. Liver: Hepatic steatosis. Gallbladder and bile ducts: Gallbladder appears somewhat prominent, ultrasound could further evaluate this as clinically indicated. Pancreas: Normal. No ductal dilation. Spleen: Several calcified splenic granulomas. Adrenal glands: Normal. No mass. Kidneys and ureters: Normal. No hydronephrosis. Stomach and bowel: Diverticulosis without diverticulitis. Appendix: No evidence of appendicitis. Intraperitoneal space: Unremarkable. No free air. No significant fluid collection. Vasculature: Unremarkable. No abdominal aortic aneurysm. Lymph nodes: Unremarkable. No enlarged lymph nodes. Urinary bladder: Small amount of air in the urinary bladder, may be iatrogenic. Reproductive: Unremarkable as visualized. Bones/joints: L3-L4 vertebral body chronic fusion. Soft tissues: Unremarkable. Other findings: Constipation. CT/CT abdomen pelvis w con* [id number] IMPRESSION: 1. Gallbladder appears somewhat prominent, ultrasound could further evaluate this as clinically indicated. 2. Constipation. 3. Diverticulosis without diverticulitis. 4. Small amount of air in the urinary bladder, may be iatrogenic. 5. L3-L4 vertebral body chronic fusion. 6. Emphysematous changes. 7. Hepatic steatosis. 8. Several calcified splenic granulomas. Radiation Dose CTDIVOL = (mGy): DLP = 1634.33 (mGy-cm)
--- NOTE | 2021-04-19 13:54 | ECG_ITS ---
[facility] Test Date: 2021-04-19 Pat Name: Zuleima Morejon Department: Room: Gender: Female Respite Worker: : 1950 Requested By: Carolina Gordillo Order Number: [id number] Adeline MD: Lisy Meraz M.D. Measurements Intervals [place] Rate: 68 P: 91 [place]: 169 QRS: 40 QRSD: 82 T: 77 QT: 386 QTc: 412 Interpretive Statements SINUS RHYTHM NONSPECIFIC T-WAVE ABNORMALITY Compared to ECG 04/19/2021 12:28:08 Sinus arrhythmia no longer present T-wave abnormality still present Electronically Signed On 04-19-2021 18:41:39 CDT by Lisy Meraz M.D. [id number]
--- NOTE | 2021-04-19 15:30 | PC.PHAR ---
pt unable to verify- last discharge paperwork shows patient was taken off of Hydrochlorothiazide 25mg once daily and Lovastatin 20mg once daily
--- NOTE | 2021-04-19 15:52 | USR_ITS ---
PROCEDURE INFORMATION: Exam: US Abdomen, Limited; Right Upper Quadrant Exam date and time: 04/19/2021 3:52 PM Age: 70 years old Clinical indication: Abnormal findings; Abnormal radiologic finding of the abdomen; Radiologic exam and body structure: CT; Additional info: Evaluate for cholecystits TECHNIQUE: Imaging protocol: US abdomen. Real time ultrasound with image documentation. Limited exam focused on the right upper quadrant. COMPARISON: CT abdomen pelvis w con* [id number] 04/19/2021 2:35 PM FINDINGS: Liver: Normal. No masses. Gallbladder: Normal. No gallstones. There is no gallbladder wall thickening. Common bile duct: Normal. No stones. No dilation. Pancreas: Visualized pancreas is unremarkable. Right kidney: Normal. No mass. No hydronephrosis. US/US gall bladder [id number] IMPRESSION: Negative for cholelithiasis or cholecystitis Radiation Dose CTDIVOL = (mGy): DLP = (mGy-cm)
[2021-04-19] MEDS: cefTRIAXone 1,000 MG in sodium chloride 0.9% (plus) 50 ML 100 MG IV (16:09)
--- NOTE | 2021-04-19 16:25 | P.HP_ITS ---
Providers/Chief Complaint Admitting Physician: Franny Keys MD Primary Care Provider: KIRSTIN Webb-Re Chief Complaint: RIGHT THIGH PAIN; HYPOTENSION History of Present Illness Zuleima Morejon is a 70 year old female with past medical history of acid reflux, anxiety, depression, hypertension, COPD, dementia, dyslipidemia, elevated troponin chronically who presented to the ER today after she was found on the floor in her trailer next to cockroaches. EMS was alerted and by the time they arrived patient blood pressure was 70/52 and she was complaining of left- sided thigh pain. She did receive about 600 cc of normal saline with improvement to her vitals. Per EMS rest of history is limited. Patient has no other focal complaints other than right-sided inner thigh pain. It is unclear how long this pain has been going on for. Patient denies fall, chest pain, shortness of breath, palpitation, abdominal complaints, nausea, vomiting, fever, chills or any other issues at this time. She denies any muscle pain except that she only endorses pain in her inner right thigh at this time. Denies palpitations. Denies any fever or chills recently. She is a former smoker but has now quit. Denies any other illicit drug use. Above portion was obtained by ER note. When I saw the patient, she was somewhat confused/not confused. Unsure. She would answer questions at times and at times would say: I don't know. I spoke to nurses and EMS to obtain most of my information. EMS stated that patient was found on the floor in a mobile home and there were cockroaches travelling on her. As they were doing the EKG, another callaway travelled upto her shoulder. Most likely her excoriations/lesions are due to roaches. They did say that the residence was very dirty and in inhabitable conditions with foul smell inside. ER course: On arrival blood pressure 101/73, respiratory rate 18, pulse 72, temperature 97.9, pulse ox 96%. CT lower extremities did not show any evidence of DVT. Chest x-ray negative for infiltrate. CT abdomen pelvis does show a prominent gallbladder. Further evaluation recommended by ultrasound. It also shows constipation, diverticulosis without diverticulitis. Small to moderate air in the urinary bladder also seen. L3-L4 vertebral body chronic fusion. Emphysematous changes, hepatic steatosis, several calcified splenic granulomas. CT femur right with contrast also shows minimal edema seen along the posterior medial aspect of right proximal thigh without focal fluid collection which may reflect a cellulitis in this region. WBC on admission 19.5. ABG 7.4 /40/74/27. 9. Creatinine 1.2, baseline 0.8, 0.9. Baseline troponin 57, 3-hour troponin 62. Urinalysis urine culture pending. Ultrasound abdomen has also been ordered which is pending at this point. Review of Systems General: Reports: 10 or more systems reviewed and unremarkable except in HPI and below Medications/Allergies Home Medications Medication Instructions Recorded Confirmed Last Taken Type CAM WALKER #1 ea 10/31/20 04/19/21 Unknown Rx albuterol sulfate 90 mcg/actuation 2 puff INHALATION Q4H PRN 90 Days 01/08/21 04/19/21 Unknown Rx aerosol inhaler #3 each budesonide-formoterol HFA 160 2 puff INHALATION BID 90 Days #3 01/08/21 04/19/21 Unknown Rx mcg-4.5 mcg/actuation aerosol each inhaler famotidine 20 mg tablet 20 mg PO DAILY 90 Days #90 tab 01/08/21 04/19/21 Unknown Rx lisinopril 10 mg tablet 10 mg PO BID 90 Days #180 tab 01/08/21 04/19/21 Unknown Rx sertraline 100 mg tablet 200 mg PO DAILY 90 Days #180 tab 01/08/21 04/19/21 Unknown Rx aspirin 81 mg PO DAILY 30 Days #30 tab 04/13/21 04/19/21 Unknown Rx atorvastatin 40 mg PO BEDTIME 30 Days #30 tab 04/13/21 04/19/21 Unknown Rx pantoprazole 40 mg PO DAILY 30 Days #30 tab 04/13/21 04/19/21 Unknown Rx Allergies Allergy/AdvReac Type Severity Reaction Status Date / Time morphine Allergy ADR-Itching Verified 01/26/21 14:25 PFSH Acute PFSH: Medical History Acid reflux Anxiety and depression Benign essential hypertension COPD, moderate Dementia Dyslipidemia Elevated troponin Surgical History Hx of total hysterectomy Social History Smoking and tobacco status: former smoker Second hand smoke exposure: Yes Smoking risk assessment/counseling performed?: No Alcohol intake: never Desire information about alcohol rehabilitation?: No Counseling given: No Desire information about substance/drug rehabilitation?: No Counseling given: No Adopted: No Caregiver/support person: No Lives independently: No Household members: spouse and family Housing: House Marital status: service: No Current occupational status: disabled Pets and animals: Yes History of recent travel: No Current gender identity: Female Female Reproductive History: Date of last menstrual period: 09/18/20 Para: 3 Vitals/I&O/Wt Last Vital Signs Temp 97.9 F 04/19/21 11:37 Pulse 72 04/19/21 14:57 Resp 18 04/19/21 14:57 BP 101/73 04/19/21 14:57 Pulse Ox 96 04/19/21 14:57 Weight last 48 hrs Weight 72.575 kg Physical Exam Narrative: EXAM NARRATIVE: General: Alert oriented but unsure if oriented x3, patient seen laying in bed, appearing confused at times. HEENT: Normocephalic, atraumatic, EOMI, breathing room air Cardio: Regular rate rhythm, normal S1-S2, no murmurs rubs gallops, Respiratory: Good bilateral air entry, anterior chest clear to auscultation. no wheezes no rhonchi appreciated GI: Abdomen soft, nontender, nondistended, bowel sounds + Behavior: Not very cooperative. Patient not wanting to answer questions. Extremities:no edema, no cyanosis. a lot excoriations seen on bilateral lower and upper extremities, possibly cockroach bites. No fluctuance noted at medial right thigh. No pain noted at palpation. No focal neurological deficits but does have bilateral lower extremity weakness. She is able to move all extermities. She is not very cooperative with examination so hard to assess. Urinary Catheter Management^: Santos: Cath Placed During This Visit: yes Urinary Catheter Date of Insertion: 04/19/21 Urinary Catheter Time of Insertion: 16:00 Data : 04/19/21 12:26 04/19/21 12:26 Micro: Microbiology 04/19/21 12:28 Blood Culture - Preliminary Blood SPECIMEN COLLECTED 04/19/21 12:26 Blood Culture - Preliminary Blood SPECIMEN COLLECTED A&P Assessment and plan (1) Cellulitis: Status: Acute (2) COPD, moderate: Status: Chronic (3) Benign essential hypertension: Status: Chronic (4) Anxiety and depression: Status: Chronic (5) Acid reflux: Status: Chronic Qualifiers: Esophagitis presence: without esophagitis Qualified Code(s): K21.9 - Gastro-esophageal reflux disease without esophagitis Additional A&P Information #Right thigh abscess versus cellulitis #Acute kidney injury Baseline creatinine 0.8/0.9 #Hypotension #Leukocytosis -Found on the floor at home bedside cockroaches. Unclear how long she was lying there. History is limited at this point -CT right femur did show fluid collection/cellulitis. -WBC 19.5. Denies any fevers at home. Afebrile on admission. ?Patient given 1 dose of ceftriaxone in the ER. We will continue for now. ?Also given normal saline 500 [address] bolus. We will place patient on normal saline 100 cc/h. -YOCASTA most likely secondary to dehydration versus possible early rhabdomyolysis. Unclear and unsure how long patient was lying on the floor. Unclear if she fell. Will check CPK -We will check blood cultures, urinalysis and urine culture ?Check procalcitonin, ESR, CRP, CPK - Will call family to obtain more info #Chronic hypoxic respiratory failure ?Does not appear to be in active COPD exacerbation at this point. We will continue her on DuoNeb sent her home inhaler with equivalent to what is on our formulary. #Hypertension #Anxiety depression #GERD -Continue home medications at this point. Hold lisinopril 2/2 YOCASTA for today. #DVT prophylaxis: Heparin #Fluids: Normal saline 100 cc/h Electrolytes: Replete as needed Nutrition: Regular diet, low-salt Activity: As tolerated at this point. Attestations Medical Necessity Statement*: Expect > 48 hours of hospital stay Time Spent in Patient Care: 16 - 35 minutes Coding Level of Care Code Acute General Service Technician for [facility] Diagnoses Cellulitis L03.90 COPD, moderate J44.9 Benign essential hypertension I10 Anxiety and depression F41.9; F32.9 Acid reflux K21.9 Esophagitis presence: without esophagitis
[2021-04-19 17:33] LABS: Alcohol Level < 10 mg/dL (0-10)
[2021-04-19] MEDS: heparin 5,000 unit/mL INJ 1 mL 5000 UNIT SUBCUT (18:21)
[2021-04-19] MEDS: lactated ringers 1,000 ML 100 ML IV (18:21)
[2021-04-19 19:02] LABS: Creatine Phosphokinase 223 U/L (26-192)
--- NOTE | 2021-04-19 19:06 | PC.PHAR ---
Pharmacokinetic dosing service Date: 04/19/21 Time: 1899 Objective: Patient: Zuleima Morejon Floor: 253[address]2 Age: 70 yo Serum creatinine: 1.2 mg/dL Height: 65.0 Inches Weight (kg): 72.575 Diagnosis: Relevant medical/social history: Cultures and sensitivities: Other labs: Assessment: IBW (kg): 57.00 Dosing wt(kg): 72.575 Estimated Creatinine clearance (ml/min): 38.1 CRCL method: Cockcroft and Gault using ibw(default). Drug selected: Vancomycin Loading dose (mg): 0 Vd (liters): 65.3 (factor used: 0.9 L/kg) Mauricio (hr-1): 0.036 Half life (hrs): 19.25 Recommended dose: 1250 mg Interval: 24 hrs Infusion time (hrs): 1.5 Predicted peak (mcg/mL): 32.2 Predicted trough (mcg/mL): 14.32 Total body weight is being used for vancomycin dosing. Renal function is stable [ ] /unstable [ ] Recommendations: Give Vancomycin 1250 mg q 24 hrs with an expected Cpeak of 32.2 mcg/ml and an expected Ctrough of 14.32 mcg/ml Renal dosing of other antibiotics (review renal dosing of other medications and list guidelines here): Thank you for the consult, will continue to follow. Signature: Alyssa Hernandez [facility]
[2021-04-19] MEDS: atorvastatin 40 mg Tablet PO (20:18)
[2021-04-19] MEDS: vancomycin 1,250 MG/250 ML PIGGYBACK 250 MG IV (20:19)
[2021-04-19 21:39] LABS: Procalcitonin 0.03 ng/mL (0-0.5)
[2021-04-19 23:10] LABS: Add Urine Microscopic? NO; Charge for UA Resulting for Rev
[2021-04-19 23:16] LABS: Bilirubin Urine Neg (Negative); Blood Urine Neg (Negative); Glucose Urine UA Norm (Normal); Ketones Urine 1+ (Negative); Leukocyte Esterase Urine Negative (Negative); Nitrate Urine Negative (Negative); Protein Urine Neg (Negative); Specific Gravity, Urine 1.005 (1.005-1.030); Urine Appearance Clear (CLEAR); Urine Color Yellow (Yellow); Urobilinogen Urine Norm (Negative); pH Urine 5 (5-7)
[2021-04-19 23:26] LABS: Amphetamines Screen Urine Negative (Negative); Barbiturates Screen Urine Negative (Negative); Benzodiazepines Screen Urine Negative (Negative); Cocaine Screen Urine Negative (Negative); Opiate Screen Urine Negative (Negative); PCP Screen Urine Negative (Negative); THC Screen Urine Negative (Negative)
[2021-04-20] VITALS (10 sets, daily range): BP systolic 92–118; BP diastolic 55–69; PULSE 72–84; RESP 16–18; TEMP 36.4–37.2; O2SAT 92–96
[2021-04-20] MEDS: heparin 5,000 unit/mL INJ 1 mL 5000 UNIT SUBCUT ×2 (00:28→17:43)
[2021-04-20 06:32] LABS: Basophils % 0.3 %; Eosinophils # 0.1 10^3/uL (0.0-0.8); Eosinophils % 0.5 %; Hematocrit 31.7 % (37.0-47.0); Hemoglobin 9.8 g/dL (11.5-15.3); Lymphocytes # 1.6 10^3/uL (0.8-4.8); Mean Corpuscular HGB Conc 30.9 g/dL (30.0-36.0); Mean Corpuscular Hemoglobin 29.9 pg (28.0-34.0); Mean Corpuscular Volume 96.6 fl (81-99); Mean Platelet Volume 10.5 fL (7.4-10.4); Monocytes # 0.9 10^3/uL (0.2-0.9); Monocytes % 6.6 %; Neutrophils # 10.48 10^3/uL (1.8-7.7); Neutrophils % 80.3 %; Nucleated Red Blood Cells % 0 %; Platelet Count 242 10^3/cmm (130-400); Red Blood Count 3.28 10^6/uL (4.1-5.3); White Blood Count 13.1 10^3/uL (4.0-10.0)
[2021-04-20 06:43] LABS: Estmated Average Glucose 108; Hemoglobin A1C 5.4 % (4.0-6.0)
[2021-04-20 06:56] LABS: Alanine Aminotransferase 32 U/L (0-33); Albumin Level 3.1 g/dL (3.5-5.2); Alkaline Phosphatase 83 IU/L (35-105); Anion Gap 16.8 (5-19); Aspartate Amino Transferase 44 U/L (0-32); Blood Urea Nitrogen 22 mg/dL (8-23); Calcium 8.7 mg/dL (8.5-10.5); Carbon Dioxide 25 mmol/L (22-29); Chloride 99 mmol/L (98-107); Globulin 2.9 g/dL (1.3-4.6); Glucose 69 mg/dL (65-115); Magnesium 1.4 mg/dL (1.7-2.3); Osmolality Calculated 286 mOsm/kg (285-295); Phosphorus 2.9 mg/dL (2.5-4.5); Potassium 3.8 mmol/L (3.5-5.1); Sodium 137 mmol/L (136-145); Total Bilirubin 0.3 mg/dL (0.15-1.2)
--- NOTE | 2021-04-20 07:50 | PM.PN ---
Subjective Subjective: Interval history: Seen this morning. patient appears a lot better than admission. SHe is energetic and talking. does tell me she feels generally weak but doing better. No longer complains of thigh pain. WBC trended down as well. Vitals/I&O/Wt Last Vital Signs Temp 98.6 F 04/20/21 07:31 Pulse 77 04/20/21 07:31 Resp 16 04/20/21 07:31 BP 105/64 04/20/21 07:31 Pulse Ox 94 04/20/21 07:31 04/19/21 04/20/21 04/20/21 22:59 06:59 14:59 Intake Total 800 / 800 Output Total 0 / 0 800 / 800 Balance 800 / 800 -800 / 0 Weight last 48 hrs Weight 72.575 kg Physical Exam Narrative: EXAM NARRATIVE: General: Alert oriented x3, patient seen laying in bed, HEENT: Normocephalic, atraumatic, EOMI, breathing room air Cardio: Regular rate rhythm, normal S1-S2, no murmurs rubs gallops, Respiratory: Good bilateral air entry, chest clear to auscultation GI: Abdomen soft, nontender, nondistended, bowel sounds + Behavior: cooperative today. Extremities:no edema, no cyanosis. a lot excoriations seen on bilateral lower and upper extremities, possibly cockroach bites. No pain noted at palpation. No focal neurological deficits Urinary Catheter Management^: Santos: Cath Placed During This Visit: yes Reason for Continuing Indwelling Catheter: Acute Urinary Retention or Obstruction Urinary Catheter Date of Insertion: 04/19/21 Urinary Catheter Time of Insertion: 16:00 Data : 04/20/21 06:08 04/20/21 06:08 Micro: Microbiology 04/19/21 12:28 Blood Culture - Preliminary Blood SPECIMEN COLLECTED 04/19/21 12:26 Blood Culture - Preliminary Blood SPECIMEN COLLECTED A&P Assessment and plan (1) Cellulitis: Status: Acute (2) COPD, moderate: Status: Chronic (3) Benign essential hypertension: Status: Chronic (4) Anxiety and depression: Status: Chronic (5) Acid reflux: Status: Chronic Qualifiers: Esophagitis presence: without esophagitis Qualified Code(s): K21.9 - Gastro-esophageal reflux disease without esophagitis Additional A&P Information #Right thigh fluid collection on CT #Acute kidney injury Baseline creatinine 0.8/0.9 #Hypotension - Resolved #Leukocytosis - Improving #Dehydration -Found on the floor at home bedside cockroaches. Unclear how long she was lying there. History is limited at this point -CT right femur did show fluid collection/cellulitis. -WBC 19.5. Denies any fevers at home. Afebrile on admission. ?Patient given 1 dose of ceftriaxone in the ER. We will continue for now. ?Also given normal saline [address] We will place patient on normal saline 100 cc/h. -YOCASTA most likely secondary to dehydration versus possible early rhabdomyolysis. CPK mildly elevated. Continue IV fluids. -We will check blood cultures, urinalysis and urine culture ?Procalcitonin pending. CPK 222 - Case management referral #Hypomagnesemia - Repleted #Chronic hypoxic respiratory failure ?Does not appear to be in active COPD exacerbation at this point. We will continue her on DuoNeb sent her home inhaler with equivalent to what is on our formulary. #Hypertension #Anxiety depression #GERD -Continue home medications at this point. Hold lisinopril 2/2 YOCASTA for today. #DVT prophylaxis: Heparin #Fluids: Normal saline 100 cc/h Electrolytes: Replete as needed Nutrition: Regular diet, low-salt Activity: As tolerated at this point. Will call family today Attestations Medical Necessity Statement*: > 24 hour additional stay Time Spent in Patient Care: 16 - 35 minutes Coding Level of Care Code Acute Patent Paralegal for [facility]elio Diagnoses Cellulitis L03.90 COPD, moderate J44.9 Benign essential hypertension I10 Anxiety and depression F41.9; F32.9 Acid reflux K21.9 Esophagitis presence: without esophagitis
[2021-04-20] MEDS: lactated ringers 1,000 ML 100 ML IV ×2 (07:59→18:16)
--- NOTE | 2021-04-20 09:42 | PC.CHAP ---
Pastoral Care Encounter/Spiritual Assessment Type of Contact [] Declined autos disassembler visit [] Patient/Family/Request visit [] Outpatient visit [] Follow-up visit [] Physician referral [] Code/Alert [x] Routine visit [] Staff referral [] Actively dying [] Patient sleeping [] Family support [] [] Out of room [] Palliative care [] [] Receiving care in room [] Pre-surgical visit [] Trauma [] Long length of stay [] ICU visit [] Other: Relational/Emotional Strength x] Patient feels connected with others/family/visitors/staff [] Distress [] Loneliness/isolation [] Abandonment Spirituality of Patient x[] Person of Mary [x] Attends Cheondoism of their Mary [x Believes in Prayer [] Reads Bible or Islam materials [] There are Spiritual issues to be addressed Fire Extinguisher Repairer Interventions [x] Prayer x[] Active listening [x] Non-anxious presence [x] Spiritual/emotional support [] Crisis/trauma care [] Spiritual counseling [] Bereavement support [] Provided bereavement packet [] Provided Bible/devotional materials [] Provided toy/stuffed animal, coloring book to patient or family member [] Provided Communion [] Anointing/[place] [] Salvation [x] Completed spiritual assessment [] Other: Impact on Illness or Injury [] Angry [] Fearful [] Anxious [] Often cries [] Exhaustion [] Unable to work [] Unable to attend rastafarian [] Unable to walk/stand [] Unable to read [] Unable to drive [] Unable to eat/drink [] Unable to sleep [] Unable to be with family [] Patient intubated [] Other: Summary Time spent with patient 10 min
[2021-04-20] MEDS: aspirin 81 mg EC Tablet PO (13:50)
[2021-04-20] MEDS: famotidine 20 mg Tablet PO (13:50)
[2021-04-20] MEDS: sertraline 100 mg Tablet 200 MG PO (13:52)
[2021-04-20] MEDS: cefTRIAXone 1,000 MG in sodium chloride 0.9% (plus) 50 ML 100 MG IV (17:43)
[2021-04-20] MEDS: magnesium sulfate premix 4 GM/100 ML PREMIX IV (17:59)
[2021-04-20] MEDS: atorvastatin 40 mg Tablet PO (20:50)
[2021-04-21] VITALS (9 sets, daily range): BP systolic 89–122; BP diastolic 55–73; PULSE 66–79; RESP 14–18; TEMP 36.1–37.3; O2SAT 91–94
[2021-04-21] MEDS: heparin 5,000 unit/mL INJ 1 mL 5000 UNIT SUBCUT ×3 (00:30→16:15)
--- NOTE | 2021-04-21 07:51 | PC.RESP ---
patient unable to follow commands.
[2021-04-21] MEDS: sertraline 100 mg Tablet 200 MG PO (07:52)
[2021-04-21] MEDS: famotidine 20 mg Tablet PO (07:52)
[2021-04-21] MEDS: aspirin 81 mg EC Tablet PO (07:52)
[2021-04-21] MEDS: lactated ringers 1,000 ML 100 ML IV ×2 (07:53→16:16)
--- NOTE | 2021-04-21 08:27 | PM.PN ---
Subjective Subjective: Interval history: Patient seen and examined today. She appeared quite well compared to when she first came here. She says her leg pain is also better. Blood pressure is also better but remains on the lower side. She has been getting lactated Ringer's while here patient. She is also eating well. Has not had a bowel movement. I will add bowel regimen for her today. Upon review of charts it is evident that she has external hemorrhoids as well. Vitals/I&O/Wt Last Vital Signs Temp 99.2 F 04/21/21 07:34 Pulse 67 04/21/21 07:48 Resp 16 04/21/21 07:48 BP 109/67 04/21/21 07:34 Pulse Ox 91 04/21/21 07:48 04/20/21 04/21/21 04/21/21 22:59 06:59 14:59 Intake Total 1150 / 1150 1000 / 2150 480 / 480 Output Total 700 / 700 200 / 900 Balance 450 / 450 800 / 1250 480 / 480 Weight last 48 hrs Weight 72.575 kg Physical Exam Narrative: EXAM NARRATIVE: General: Alert oriented x 2, patient seen sitting up in recliner. HEENT: Normocephalic, atraumatic, EOMI, breathing room air Cardio: Regular rate rhythm, normal S1-S2, no murmurs rubs gallops, Respiratory: Good bilateral air entry, chest clear to auscultation GI: Abdomen soft, nontender, nondistended, bowel sounds + Behavior: cooperative today. Extremities:no edema, no cyanosis. a lot excoriations seen on bilateral lower and upper extremities, possibly cockroach bites. No pain noted at palpation. Her leg pain is improved. When I palpate around the medial thighs she did not report any pain today. No focal neurological deficits Urinary Catheter Management^: Santos: Cath Placed During This Visit: yes Reason for Continuing Indwelling Catheter: Assist Healing of Perineal & Sacral Wounds- Incontinent Patients Urinary Catheter Date of Insertion: 04/19/21 Urinary Catheter Time of Insertion: 16:00 Data : 04/21/21 08:57 04/21/21 08:57 Micro: Microbiology 04/19/21 12:28 Blood Culture - Preliminary Blood NEGATIVE TO DATE 04/19/21 12:26 Blood Culture - Preliminary Blood NEGATIVE TO DATE 04/20/21 08:00 MRSA Culture - Final Nose A&P Assessment and plan (1) Cellulitis: Status: Acute (2) COPD, moderate: Status: Chronic (3) Benign essential hypertension: Status: Chronic (4) Anxiety and depression: Status: Chronic (5) Acid reflux: Status: Chronic Qualifiers: Esophagitis presence: without esophagitis Qualified Code(s): K21.9 - Gastro-esophageal reflux disease without esophagitis Additional A&P Information #Right thigh fluid collection on CT #Acute kidney injury Baseline creatinine 0.8/0.9 #Hypotension - Resolved #Leukocytosis - Improving #Dehydration #Failure to thrive, adult neglect. -Found on the floor at home bedside cockroaches. Unclear how long she was lying there. History is limited at this point -CT right femur did show fluid collection/cellulitis. -WBC 19.5. Denies any fevers at home. Afebrile on admission. ?Patient given 1 dose of ceftriaxone in the ER. We will continue for now. ?Also given normal saline [address] We will place patient on normal saline 100 cc/h. -YOCASTA most likely secondary to dehydration versus possible early rhabdomyolysis. CPK mildly elevated. Continue IV fluids. YOCASTA resolved. Creatinine back to baseline. Procalcitonin negative. -Blood cultures negative to date, urine culture pending. - Case management referral #Hypomagnesemia - Repleted #Chronic hypoxic respiratory failure ?Does not appear to be in active COPD exacerbation at this point. We will continue her on DuoNeb sent her home inhaler with equivalent to what is on our formulary. #Hypertension #Anxiety depression #GERD -Continue home medications at this point. Hold lisinopril 2/2 YOCASTA for today. #DVT prophylaxis: Heparin #Fluids: Normal saline 100 cc/h Electrolytes: Replete as needed Nutrition: Regular diet, low-salt Activity: As tolerated at this point. Called patient's but was unable to get a hold of him. Looked at PHI intake form and was able to speak to her son Jermain. She also mentioned this morning that she wanted me to speak to Jermain. Her son stated that he is not interested in a penitentiary or even home health or home exercise program if offered. He is planning to move his parents over to [place] and will be finding a new doctor for the patient as well. Currently she sees Dr. Nadia Altamirano. He states that he is willing to take her to the primary care physician within a week after discharge. He also emphasized that he would like her to quit smoking and if we can give her some kind of medicine to help her quit that would be great. I told him that I can discuss this with the patient and see if she is interested in doing that. He also states that the patient lays in bed all day and does not want to get up and do anything. Her meals are prepared by somebody else for her. And he states that the patient's takes care of her and does all the work that needs to be done. He also requested that if the hospital can set up a ride for her home he would appreciate it because none of the family members can come to the hospital until the to physically pick her up. I am planning to possibly discharge the patient tomorrow on oral antibiotics. I told patient's son that if that is still the plan for tomorrow's discharge I can try speaking to case therapist to see if a ride can be arranged. Also we would need to do a physical therapy and Occupational Therapy evaluation officially. Attestations Medical Necessity Statement*: anticipate discharge in AM. Time Spent in Patient Care: 16 - 35 minutes Coding Level of Care Code Acute Sole Conditioner for g Fwd Diagnoses Cellulitis L03.90 COPD, moderate J44.9 Benign essential hypertension I10 Anxiety and depression F41.9; F32.9 Acid reflux K21.9 Esophagitis presence: without esophagitis
[2021-04-21] MEDS: ketorolac 30 mg/mL INJ 15 MG IVP ×2 (08:35→14:13)
[2021-04-21] MEDS: ondansetron 2 mg/ML SDV 2 mL 4 MG IVP (08:51)
[2021-04-21 09:39] LABS: Basophils # 0.1 10^3/uL (0.0-0.1); Basophils % 0.5 %; Eosinophils # 0.1 10^3/uL (0.0-0.8); Eosinophils % 0.9 %; Hematocrit 32.6 % (37.0-47.0); Hemoglobin 10.2 g/dL (11.5-15.3); Lymphocytes # 3.3 10^3/uL (0.8-4.8); Lymphocytes % 22.7 %; Mean Corpuscular HGB Conc 31.3 g/dL (30.0-36.0); Mean Corpuscular Hemoglobin 29.1 pg (28.0-34.0); Mean Corpuscular Volume 93.1 fl (81-99); Monocytes # 0.8 10^3/uL (0.2-0.9); Monocytes % 5.8 %; Neutrophils # 10.09 10^3/uL (1.8-7.7); Neutrophils % 69.8 %; Nucleated Red Blood Cells % 0 %; Platelet Count 377 10^3/cmm (130-400); Red Cell Distribution Width 14.1 % (12.1-15.1); White Blood Count 14.5 10^3/uL (4.0-10.0)
[2021-04-21 10:02] LABS: Anion Gap 15.5 (5-19); Blood Urea Nitrogen 16 mg/dL (8-23); Calcium 8.8 mg/dL (8.5-10.5); Carbon Dioxide 28 mmol/L (22-29); Chloride 99 mmol/L (98-107); Creatinine Clr Calc Pharmacy 63.4495; Glucose 98 mg/dL (65-115); Osmolality Calculated 289 mOsm/kg (285-295); Potassium 3.5 mmol/L (3.5-5.1); Sodium 139 mmol/L (136-145)
--- NOTE | 2021-04-21 14:37 | CTR_ITS ---
PROCEDURE INFORMATION: Exam: CT Head Without Contrast Exam date and time: 04/21/2021 2:37 PM Age: 70 years old Clinical indication: Altered mental status/memory loss. Confusion or disorientation. TECHNIQUE: Imaging protocol: Computed tomography of the head without contrast. Radiation optimization: All CT scans at this facility use at least one of these dose optimization techniques: automated exposure control; mA and/or kV adjustment per patient size (includes targeted exams where dose is matched to clinical indication); or iterative reconstruction. COMPARISON: CT head wo con* [id number] 11/23/2018 3:31 PM RADIATION DOSE METRICS: Total DLP (mGy-cm): 850.07 FINDINGS: Brain: No acute intracranial hemorrhage. No mass, mass effect or midline shift.. There is no evidence of acute large vessel infarct.. There is minimal subcortical hypodensity, most commonly associated with small vessel ischemic disease of indeterminate age. The posterior fossa is grossly unremarkable; however, it is partially obscurred by beam hardening artifact. Cerebral ventricles: The ventricles are prominent, compatible with mild parenchymal volume loss. Paranasal sinuses: There is opacification of the right maxillary sinus. There is a retention cyst or polyp in the left maxillary sinus. Mastoid air cells: No mastoid effusion. Orbital cavity: The visualized orbits are unremarkable. Bones/joints: No acute fracture is seen. CT/CT head wo con* [id number] IMPRESSION: 1. Mild senescent changes as above. 2. No acute intracranial abnormality. Radiation Dose CTDIVOL = (mGy): DLP = 850.07 (mGy-cm)
[2021-04-21] MEDS: cefTRIAXone 1,000 MG in sodium chloride 0.9% (plus) 50 ML 100 MG IV (16:15)
--- NOTE | 2021-04-21 16:41 | P.CONIM_ITS ---
Providers/Reason For Consult Consulting Physician/Specialty*: General Surgery Kevin Esteves MD Reason for Consult*: Left hip wound. Attending Physician: Franny Keys MD Primary Care Provider: GONZALO Webb History of Present Illness History of Present Illness Zuleima Morejon is a 70 year old female found today in poor living conditions and hypotensive. She was admitted for further work-up and care. She was found to have a wound on the left hip that I have been asked to evaluate. The patient says it may have been there for a couple of days. She does not seem to have a very good ongoing sense of her medical situation. Review of Systems Const: Denies: fever(s) Musc: Reports: extremity pain Meds/Allergies Home Medications and Allergies Home Medications Medication Instructions Recorded Confirmed Last Taken Type CAM WALKER #1 ea 10/31/20 04/19/21 Unknown Rx albuterol sulfate 90 mcg/actuation 2 puff INHALATION Q4H PRN 90 Days 01/08/21 04/19/21 Unknown Rx aerosol inhaler #3 each budesonide-formoterol HFA 160 2 puff INHALATION BID 90 Days #3 01/08/21 04/19/21 Unknown Rx mcg-4.5 mcg/actuation aerosol each inhaler famotidine 20 mg tablet 20 mg PO DAILY 90 Days #90 tab 01/08/21 04/19/21 Unknown Rx lisinopril 10 mg tablet 10 mg PO BID 90 Days #180 tab 01/08/21 04/19/21 Unknown Rx sertraline 100 mg tablet 200 mg PO DAILY 90 Days #180 tab 01/08/21 04/19/21 Unknown Rx aspirin 81 mg PO DAILY 30 Days #30 tab 04/13/21 04/19/21 Unknown Rx atorvastatin 40 mg PO BEDTIME 30 Days #30 tab 04/13/21 04/19/21 Unknown Rx pantoprazole 40 mg PO DAILY 30 Days #30 tab 04/13/21 04/19/21 Unknown Rx Allergies Allergy/AdvReac Type Severity Reaction Status Date / Time morphine Allergy ADR-Itching Verified 01/26/21 14:25 Current Medications Current Medications Generic Name Dose Route Start Last Admin Trade Name Freq PRN Reason Stop Dose Admin Aspirin 81 mg 04/20/21 09:00 04/21/21 07:52 Aspirin 81 Mg Ec Tablet PO 81 mg DAILY DERECK Administration Atorvastatin Calcium 40 mg 04/19/21 21:00 04/20/21 20:50 Atorvastatin 40 Mg Tablet PO 40 mg BEDTIME DERECK Administration Famotidine 20 mg 04/20/21 09:00 04/21/21 07:52 Famotidine 20 Mg Tablet PO 20 mg DAILY DERECK Administration Heparin Sodium (Porcine) 5,000 unit 04/19/21 16:45 04/21/21 16:15 Heparin 5,000 Unit/Ml Inj 1 Ml SUBCUT 5,000 unit Q8H DERECK Administration Lactated Ringer's 1,000 mls @ 100 mls/hr 04/19/21 16:45 04/21/21 16:16 Lactated Ringers IV 100 mls/hr .Q10H DERECK Administration Ceftriaxone Sodium 1,000 mg/ 50 mls @ 100 mls/hr 04/20/21 16:00 04/21/21 16:15 Sodium Chloride IV 100 mls/hr Q24H DERECK Administration Protocol Ondansetron HCl 4 mg 04/21/21 08:39 04/21/21 08:51 Ondansetron 2 Mg/Ml Sdv 2 Ml IVP 4 mg Q6H PRN Administration NAUSEA AND VOMITING Fluticasone/Salmeterol 1 puff 04/19/21 20:00 04/21/21 07:48 Fluticasone-Salmeterol 250-50 Diskus INHALATION 1 puff BID.RESPIRATORY DERECK Administration Sertraline HCl 200 mg 04/20/21 09:00 04/21/21 07:52 Sertraline 100 Mg Tablet PO 200 mg DAILY DERECK Administration PFSH Acute PFSH: Medical History Acid reflux Anxiety and depression Benign essential hypertension COPD, moderate Dementia Dyslipidemia Elevated troponin Surgical History Hx of total hysterectomy Social History Smoking and tobacco status: former smoker Second hand smoke exposure: Yes Smoking risk assessment/counseling performed?: No Alcohol intake: never Desire information about alcohol rehabilitation?: No Counseling given: No Desire information about substance/drug rehabilitation?: No Counseling given: No Adopted: No Caregiver/support person: No Lives independently: No Household members: spouse and family Housing: House Marital status: service: No Current occupational status: disabled Pets and animals: Yes History of recent travel: No Current gender identity: Female Female Reproductive History: Date of last menstrual period: 09/18/20 Para: 3 Vitals/I&O/Wt Last Vital Signs Temp 98.7 F 04/21/21 15:55 Pulse 71 04/21/21 15:55 Resp 14 04/21/21 15:55 BP 89/55 04/21/21 15:55 Pulse Ox 92 04/21/21 15:55 04/21/21 04/21/21 04/21/21 06:59 14:59 22:59 Intake Total 1000 / 2150 540 / 1378.333 838.333 / 1378.333 Output Total 200 / 900 100 / 100 Balance 800 / 1250 440 / 1278.333 838.333 / 1278.333 Physical Exam Narrative: EXAM NARRATIVE: The patient was examined in her room with the help of her nurse. She was rolled up on her right side. On the posterior aspect of the left hip region she has a somewhat linear/transverse but superficial wound extending it just into the dermis. Part of this is covered by light-colored, soft eschar measuring perhaps 7?8 cm x 2 cm. There is no evidence of secondary infection. Urinary Catheter Management^: Santos: Cath Placed During This Visit: yes Reason for Continuing Indwelling Catheter: Assist Healing of Perineal & Sacral Wounds- Incontinent Patients Urinary Catheter Date of Insertion: 04/19/21 Urinary Catheter Time of Insertion: 16:00 Data Micro: Micro: Microbiology 04/19/21 12:28 Blood Culture - Pr eliminary Blood NEGATIVE TO BETO E 04/19/21 12:26 Blood Culture - Pr eliminary Blood NEGATIVE TO BETO E A&P Assessment and plan (1) Stage II decubitus ulcer: This appears to be a stage II decubitus wound with a soft thin eschar on top measuring perhaps 7 or 8 cm in greatest diameter. I think this would be easily handled with some enzymatic salve and most likely will not need surgical debridement. I will start local wound care. Status: Acute Consult Attestations Medical Necessity Statement: See admitting service's notation. Coding Level of Care Code Acute Sausage Inspector for Drake Mercado Diagnoses Stage II decubitus ulcer L89.92
[2021-04-21] MEDS: atorvastatin 40 mg Tablet PO (21:17)
[2021-04-22] VITALS: BP 91/58; PULSE 68; RESP 16; TEMP 37.1; O2SAT 91
[2021-04-22] MEDS: heparin 5,000 unit/mL INJ 1 mL 5000 UNIT SUBCUT ×2 (00:55→08:47)
[2021-04-22 04:00] VITALS: BP 99/62; PULSE 67; RESP 17; TEMP 36.7; O2SAT 90
[2021-04-22] MEDS: lactated ringers 1,000 ML 100 ML IV (04:12)
[2021-04-22 05:14] LABS: Basophils % 0.4 %; Eosinophils # 0.1 10^3/uL (0.0-0.8); Hematocrit 26.9 % (37.0-47.0); Hemoglobin 8.3 g/dL (11.5-15.3); Lymphocytes # 1.2 10^3/uL (0.8-4.8); Lymphocytes % 17.2 %; Mean Corpuscular HGB Conc 30.9 g/dL (30.0-36.0); Mean Corpuscular Hemoglobin 30.3 pg (28.0-34.0); Mean Corpuscular Volume 98.2 fl (81-99); Mean Platelet Volume 10.6 fL (7.4-10.4); Monocytes # 0.5 10^3/uL (0.2-0.9); Monocytes % 6.5 %; Neutrophils # 5.19 10^3/uL (1.8-7.7); Neutrophils % 74.6 %; Nucleated Red Blood Cells % 0 %; Platelet Count 188 10^3/cmm (130-400); Red Blood Count 2.74 10^6/uL (4.1-5.3); Red Cell Distribution Width 14.2 % (12.1-15.1)
[2021-04-22 05:55] LABS: Anion Gap 9.4 (5-19); Blood Urea Nitrogen 17 mg/dL (8-23); Calcium 8.2 mg/dL (8.5-10.5); Carbon Dioxide 30 mmol/L (22-29); Chloride 101 mmol/L (98-107); Creatinine Clr Calc Pharmacy 63.4495; Glucose 88 mg/dL (65-115); Osmolality Calculated 285 mOsm/kg (285-295); Potassium 3.4 mmol/L (3.5-5.1); Sodium 137 mmol/L (136-145)
[2021-04-22 07:36] VITALS: BP 102/63; PULSE 68; RESP 17; TEMP 36.6; O2SAT 90
[2021-04-22 08:47] VITALS: PULSE 78; RESP 17; O2SAT 92
[2021-04-22] MEDS: polyethylene glycol 3350 Pkt 17 gm PO (08:47)
[2021-04-22] MEDS: sertraline 100 mg Tablet 200 MG PO (08:47)
[2021-04-22] MEDS: potassium chloride oral liq 20 mEq/15 mL UDC 40 MEQ PO (08:48)
[2021-04-22] MEDS: aspirin 81 mg EC Tablet PO (08:48)
[2021-04-22] MEDS: famotidine 20 mg Tablet PO (08:48)
[2021-04-22] MEDS: collagenase oint 30 gm 1 APPLIC TOPICAL (08:49)
--- NOTE | 2021-04-22 12:39 | PM.DCS ---
Discharge Providers Date of Admission: 04/19/21 15:23 Date of Discharge: April 22, 2021 Attending Provider at Admission: Franny Keys MD Attending Provider at Discharge: Franny Keys MD Primary Care Provider: GONZALO Webb Diagnoses at Discharge Discharge Diagnosis (1) Stage II decubitus ulcer: Status: Acute Reason for Visit Reason for Visit: RIGHT THIGH PAIN; HYPOTENSION Hospital Course Hospital Course Zuleima Morejon is a 70 year old female with past medical history of acid reflux, anxiety, depression, hypertension, COPD, dementia, dyslipidemia, elevated troponin chronically who presented to the ER today after she was found on the floor in her trailer next to cockroaches. EMS was alerted and by the time they arrived patient blood pressure was 70/52 and she was complaining of left-sided thigh pain. She did receive about 600 cc of normal saline with improvement to her vitals. Per EMS rest of history is limited. Patient has no other focal complaints other than right-sided inner thigh pain. It is unclear how long this pain has been going on for. Patient denies fall, chest pain, shortness of breath, palpitation, abdominal complaints, nausea, vomiting, fever, chills or any other issues at this time. She denies any muscle pain except that she only endorses pain in her inner right thigh at this time. Denies palpitations. Denies any fever or chills recently. She is a former smoker but has now quit. Denies any other illicit drug use. Above portion was obtained by ER note. When I saw the patient, she was somewhat confused/not confused. Unsure. She would answer questions at times and at times would say: I don't know. I spoke to nurses and EMS to obtain most of my information. EMS stated that patient was found on the floor in a mobile home and there were cockroaches travelling on her. As they were doing the EKG, another callaway travelled upto her shoulder. Most likely her excoriations/lesions are due to roaches. They did say that the residence was very dirty and in inhabitable conditions with foul smell inside. ER course: On arrival blood pressure 101/73, respiratory rate 18, pulse 72, temperature 97.9, pulse ox 96%. CT lower extremities did not show any evidence of DVT. Chest x-ray negative for infiltrate. CT abdomen pelvis does show a prominent gallbladder. Further evaluation recommended by ultrasound. It also shows constipation, diverticulosis without diverticulitis. Small to moderate air in the urinary bladder also seen. L3-L4 vertebral body chronic fusion. Emphysematous changes, hepatic steatosis, several calcified splenic granulomas. CT femur right with contrast also shows minimal edema seen along the posterior medial aspect of right proximal thigh without focal fluid collection which may reflect a cellulitis in this region. WBC on admission 19.5. ABG 7.4 5/40/74/27.9. Creatinine 1.2, baseline 0.8, 0.9. Baseline troponin 57, 3-hour troponin 62. Urinalysis urine culture pending. Ultrasound abdomen has also been ordered which is pending at this point.\ Course Patient admitted for cellulitis or right thigh. She was on ceftriaxone as inpatient. Cellulitis improved and she was discharged on oral antibiotics. During hospital stay she also had a mild rhabdomyolysis which improved with fluids. Cr got back to baseline. She has failure to thrive. Patient was recommended a SNF but that was declined by family. Home health was also declined. Patient's family requested for a ride to be setup for her to go home with. Ride was arranged by case management. Post discharge her Hb was noted to be low. She was called in a script for CBC .Hemoglobin improved 2g. SHe was asked to follow up with PCP. Physical Exam Narrative: EXAM NARRATIVE: General: Alert oriented x 2, patient seen sitting up in recliner. HEENT: Normocephalic, atraumatic, EOMI, breathing room air Cardio: Regular rate rhythm, normal S1-S2, no murmurs rubs gallops, Respiratory: Good bilateral air entry, chest clear to auscultation GI: Abdomen soft, nontender, nondistended, bowel sounds + Behavior: cooperative today. Extremities:no edema, no cyanosis. a lot excoriations seen on bilateral lower and upper extremities, possibly cockroach bites. No pain noted at palpation. Her leg pain is improved. When I palpate around the medial thighs she did not report any pain today There is a stage 2-3 pressure ulcer noted above left hip which was examined by wound care. Santyl recommended for now. Sacrum has stage sacral wound with intact skin. No focal neurological deficits Urinary Catheter Management^: Santos: Cath Placed During This Visit: yes Reason for Continuing Indwelling Catheter: Acute Urinary Retention or Obstruction Urinary Catheter Date of Insertion: 04/19/21 Urinary Catheter Time of Insertion: 16:00 Discharge Data Data Completed and Pending: Completed Studies During Hospitalization Category Date Time Status CT abdomen pelvis w con* [id number] Urge nt Cat Scan 04/19/21 13:[address] femur RT w con [id number] Urgent Cat Scan 04/19/21 12:[address] head wo con* 7 [id number] Stat Cat Scan 04/21/21 14:37 Completed XR chest 1V [place] ble [id number] Urgent Exams 04/19/21 11:53 [place] [id number] Urgent Ultrasound 04/19/21 11:58 Completed US gall bladder 7 [id number] Urgent Ultrasound 04/19/21 15:52 Completed Pending at discharge Category Date Time Status Blood Culture Sta t Lab 04/19/21 12:28 Results Erythrocyte Sedim entation Rate Rout ine Lab 04/20/21 06:08 Received Urine Culture Sta t Lab 04/20/21 15:46 Received Labs from last 24 hours 04/22/21 04/22/21 04:33 04:33 WBC 7.0 RBC 2.74 L Hgb 8.3 L Hct 26.9 L MCV 98.2 D MCH 30.3 MCHC 30.9 RDW 14.2 Plt Count 188 D MPV 10.6 H Neut % (Auto) 74.6 Lymph % (Auto) 17.2 Divide % (Auto) 6.5 Eos % (Auto) 1.0 Baso % (Auto) 0.4 Neut # (Auto) 5.19 Lymph # (Auto) 1.2 Divide # (Auto) 0.5 Eos # (Auto) 0.1 Baso # (Auto) 0.0 Nucleated RBC % (a uto) 0 Nucleated RBCs # 0.0 Sodium 137 Potassium 3.4 L Chloride 101 Carbon Dioxide 30 H Anion Gap 9.4 BUN 17 Creatinine 0.8 GFR Calculation Not Reportable Glucose 88 Calculated Osmolal ity 285 Calcium 8.2 L Vitals: Last Vital Signs Temp 97.9 F 04/22/21 07:36 Pulse 78 04/22/21 08:47 Resp 17 04/22/21 08:47 BP 102/63 04/22/21 07:36 Pulse Ox 92 04/22/21 08:47 Discharge Plan Discharge Patient Disposition: Home Condition: Fair Prescriptions: New Santyl 250 unit/gram Ointment 1 applic topical DAILY 14 Days Qty: 30 RF: 0 amoxicillin-pot clavulanate [Augmentin] 875-125 mg tablet 1 tab PO BID 7 Days Qty: 14 RF: 0 Continued albuterol sulfate [ProAir HFA] 90 mcg/actuation HFA aerosol inhaler 2 puff INHALATION Q4H PRN (Reason: shortness of breath or wheezing) 90 Days Qty: 3 RF: 1 budesonide-formoterol [Symbicort] 160-4.5 mcg/actuation HFA aerosol inhaler 2 puff INHALATION BID 90 Days Qty: 3 RF: 1 famotidine 20 mg tablet 20 mg PO DAILY 90 Days Qty: 90 RF: 1 sertraline [Zoloft] 100 mg tablet 200 mg PO DAILY 90 Days Qty: 180 RF: 1 (DME) CAM WALKER See Rx Instructions .ROUTE .MEDSUPPLY Qty: 1 RF: 0 atorvastatin 40 mg Tablet 40 mg PO BEDTIME 30 Days Qty: 30 RF: 0 aspirin 81 mg Tablet,Delayed Release (Dr/Ec) 81 mg PO DAILY 30 Days Qty: 30 RF: 0 pantoprazole 40 mg Tablet,Delayed Release (Dr/Ec) 40 mg PO DAILY 30 Days Qty: 30 RF: 0 Discontinued lisinopril 10 mg tablet 10 mg PO BID 90 Days Qty: 180 RF: 1 Discharge Orders: Discharge Order (Routine); Ordered 04/22/21 Ordered By: Franny Keys Referrals: Nadia Altamirano FNP-C [Primary Care Provider] - 1 week (PLEASE CALL FOR APPOINTMENT ) [facility], [Staff Physician] - 04/27/21 8:30 am (Follow up stage 2 decubitus ulcer [phone]) Discharge Diet: Regular Discharge Activity: Increase activity as tolerated Patient Instructions: Cellulitis, Amoxicillin/Clavulanate Potassium (By mouth), Collagenase (On the skin) (Santyl), Opioid Safety, Wound Care (General) Activity Restrictions/Additional Instructions: Follow up with wound care clinic for decubitus ulcer. Discharge Attestations Time Spent in Discharge Care*: less than 30 min Status at Discharge: Cognitive status at discharge: moderately impaired cognition, Behavioral status at discharge: cooperative, Quality Metrics Clinical Quality Measures During this hospital stay, did patient experience: None Coding Level of Care Code Acute Chg FW DC note Diagnoses Stage II decubitus ulcer L89.92
[2021-04-22 14:34] VITALS: BP 102/63; PULSE 78; RESP 17; TEMP 36.6; O2SAT 92
--- NOTE | 2021-04-23 07:56 | PM.MISC ---
Miscellaneous Note Purpose of Documentation: I tried calling the patient's , patient's son and the patient to inform them of low hemoglobin results. I would like patient to come back to hospital for further evaluation. No one is picking up the phone. I was able to get in touch with the daughter Ms. Varghese. I informed her of the hemoglobin results. She stated that she will try to get a hold of her mom and dad and would like me to call her back by 11 am today. I will try again at 11 am. I told them her Hb dropped almost 3g since admission and that trend is not normal. I would like patient to get re-evaluated for this. Ms. Varghese will let me know if patient can come back.
--- NOTE | 2021-04-23 10:01 | PC.SOCIAL ---
Dr Keys called this nurse to see if we can have the patient go to clinic for a CBC in order to check her Hgb, HCT and RBC's. Called patient spouse and he was reluctant indicating they did not have transport. He indicates he will see and call me back. My number was provided. Later the patient spouse calls to indicate they are at the [facility] and did not verify with this nurse they were able to find transport. Order entered for CBC per verbal order by Dr Keys. This nurse will follow up on result later today. It will be sent to our lab around 12-1pm. Per Dr Keys if counts have continued to drop patient will need to return to ED for further evaluation.
[2021-04-23 12:40] LABS: Erythrocyte Sedimentation Rate 25 mm/hr (0-15)
== END 2021-04-22 14:00 | disposition home or self-care (01) ==
LOC: ER 11:35 → MEDSURG 16:06
PROVIDERS: Admitting Provider Internal Medicine; Emergency Provider Emergency Medicine; PCP Nurse Practitioner Family; Visit Provider Internal Medicine
DX: L03.115 Cellulitis of right lower limb (principal); J44.9 Chronic obstructive pulmonary disease, unspecified; I10 Essential (primary) hypertension; F41.9 Anxiety disorder, unspecified; F32.9 Major depressive disorder, single episode, unspecified; K21.9 Gastro-esophageal reflux disease without esophagitis; D64.9 Anemia, unspecified; N17.9 Acute kidney failure, unspecified; D72.829 Elevated white blood cell count, unspecified; E86.0 Dehydration; E83.42 Hypomagnesemia; J96.11 Chronic respiratory failure with hypoxia; R62.7 Adult failure to thrive; L89.222 Pressure ulcer of left hip, stage 2; Z79.82 Long term (current) use of aspirin; Z87.891 Personal history of nicotine dependence
CPT/HCPCS: 36415; 36600; 51702; 70450; 71045; 73701; 74177; 76705; 80048; 80053; 80306; 80307; 81003; 82550; 82803; 83036; 83605; 83690; 83735; 84100; 84145; 84484; 85025; 85651; 86140; 87040; 87086; 87641; 93005; 93971; 94640; 96365; 96366; 96367; 96372; 96375; 96376; 97162; 97530; 99285; G0378; J0696; J1644; J1885; J2405; J3370; J3475; J7040; Q9967

== ENCOUNTER → 2021-04-23 10:09 | Outpatient (BNVA) | payer OTHER, SELFPAY | PROVIDERS: PCP Nurse Practitioner Family; Visit Provider Nurse Practitioner Family | DX: D64.9 Anemia, unspecified (principal) | CPT/HCPCS: 85025 ==

== ENCOUNTER 2021-04-24 19:32 | Inpatient (IN) | payer OTHER, SELFPAY ==
[2021-04-24 19:33] VITALS: BP 101/56; PULSE 82; RESP 22; TEMP 36.4; O2SAT 99; BMI 29.1
--- NOTE | 2021-04-24 20:08 | PC.NURSE ---
Attempted to off load pt from Left side to right side to reduce pain to buttocks ulcer
--- NOTE | 2021-04-24 20:27 | XRR_ITS ---
PROCEDURE INFORMATION: Exam: XR Chest Exam date and time: 04/24/2021 8:27 PM Age: 70 years old Clinical indication: Other: Weakness TECHNIQUE: Imaging protocol: XR of the chest. Views: 1 view. COMPARISON: 1. CR (CHEST, ) 04/19/2021 2:30 PM 2. CR XR chest 1V portable [id number] 11/06/2020 2:39:40 PM FINDINGS: Limitations: The study is limited by suboptimal patient positioning. Patient is rotated leftward. Lungs: Increased density near the left lung apex, which may represent mild/early infiltrate. Focal scar/fibrosis demonstrated in the periphery of the right lung, unchanged from 04/19/2021 and 11/06/2020. Pleural spaces: No pleural effusion. No pneumothorax. Heart/Mediastinum: No cardiomegaly. Bones/joints: Status post ORIF left humerus fracture. Degenerative spine changes are noted. XR/XR chest 1V portable [id number] IMPRESSION: 1. The study is limited by suboptimal patient positioning. Patient is rotated leftward. 2. Increased density near the left lung apex, which may represent early/mild infiltrate. This is new when compared to previous studies. 3. No additional suspected infiltrates are identified. Radiation Dose CTDIVOL = (mGy): DLP = (mGy-cm)
[2021-04-24 20:51] LABS: Basophils # 0.1 10^3/uL (0.0-0.1); Basophils % 0.5 %; Eosinophils # 0.1 10^3/uL (0.0-0.8); Eosinophils % 0.5 %; Hematocrit 34.3 % (37.0-47.0); Hemoglobin 10.8 g/dL (11.5-15.3); Lymphocytes # 1.2 10^3/uL (0.8-4.8); Lymphocytes % 7.8 %; Mean Corpuscular HGB Conc 31.5 g/dL (30.0-36.0); Mean Corpuscular Hemoglobin 29.9 pg (28.0-34.0); Mean Platelet Volume 10.7 fL (7.4-10.4); Monocytes % 6.4 %; Neutrophils # 12.82 10^3/uL (1.8-7.7); Neutrophils % 84.1 %; Nucleated Red Blood Cells % 0 %; Platelet Count 283 10^3/cmm (130-400); Red Blood Count 3.61 10^6/uL (4.1-5.3); Red Cell Distribution Width 14.3 % (12.1-15.1); White Blood Count 15.2 10^3/uL (4.0-10.0)
[2021-04-24] MEDS: fentaNYL 50 mcg/mL INJ 2mL IVP (20:59)
[2021-04-24] MEDS: ondansetron 2 mg/ML SDV 2 mL 4 MG IVP (20:59)
[2021-04-24] MEDS: sodium chloride 0.9% 1,000 ML 999 ML IV (20:59)
[2021-04-24 21:07] LABS: Lactate (Lactic Acid level) 1.3 mmol/L (0.5-2.2)
--- NOTE | 2021-04-24 21:24 | W.ED.WEAKNES ---
HPI - Weakness General: Chief complaint: Weakness Stated complaint: weakness in bilateral legs Time Seen by Provider: 04/24/21 19:46 History of Present Illness: HPI Narrative: 70-year-old female who left the hospital 24 h prior to arrival here. She was discharged to home. This was against the urging of hospital physician staff that this patient go to a group home. Zuleima complains of weakness to her bilateral lower extremities, and that she is no longer able to stand and walk on her own at home. She denies any shortness of breath, chest discomfort, fever, or other problems. She presents via ambulance with close sopping wet with urine, bugs crawling on her, and otherwise disheveled appearance. MD Complaint: generalized weakness Onset (ago): unknown Duration: progressively worsening Location: generalized Migration: none Quality: numbness Relieving factors: none Associated symptoms: Reports confusion; Denies chest pain, fever(s), headache(s) or vomiting Review of Systems Const: Denies: fever(s) Card: Denies: chest pain or palpitations Resp: Denies: dyspnea, productive cough or non-productive cough GI: Denies: abdominal pain or vomiting Neuro: Reports: weakness in extremities, sensory changes, difficulty walking and confusion; Denies: headache(s) PFS ED PFSH: Medical History Acid reflux Anxiety and depression Benign essential hypertension COPD, moderate Dementia Dyslipidemia Elevated troponin Surgical History Hx of total hysterectomy Social History Smoking and tobacco status: former smoker Second hand smoke exposure: Yes Smoking risk assessment/counseling performed?: No Alcohol intake: never Desire information about alcohol rehabilitation?: No Counseling given: No Desire information about substance/drug rehabilitation?: No Counseling given: No Adopted: No Caregiver/support person: No Lives independently: No Household members: spouse and family Housing: House Marital status: service: No Current occupational status: disabled Pets and animals: Yes History of recent travel: No Current gender identity: Female Female Reproductive History: Date of last menstrual period: 09/18/20 Para: 3 Physical Exam Const: COMMON NORMALS: no acute distress GENERAL APPEARANCE: disheveled and frail appearing NUTRITIONAL APPEARANCE: thin ORIENTATION/CONSCIOUSNESS: Yes awake, Yes oriented to person and Yes oriented to place; not oriented to time HENMT: COMMON NORMALS: normocephalic HEAD & SCALP: normocephalic Chest: COMMONS NORMALS: normal inspection of the chest Resp: COMMON NORMALS: normal respiratory effort, No use of accessory muscles and clear to auscultation bilaterally AUSCULTATION: clear to auscultation bilaterally Cardio: COMMON NORMALS: regular rate and regular rhythm RATE: regular rate RHYTHM: regular rhythm GI: COMMON NORMALS: Normal to inspection, nondistended, normoactive bowel sounds present and Soft to palpation PALPATION: Yes Soft to palpation Neuro: SENSORIUM/ORIENTATION: Yes oriented to person, Yes oriented to place and No oriented to time CRANIAL NERVES: Yes CN normal except as noted COORDINATION/BALANCE: [id number] test normal SPEECH: speech normal MOTOR EXAM: Pronator motor function not present COORDINATION: [id number] test normal Course Vital Signs: Vital signs: Vital Signs Temperature 97.5 F L 04/24/21 19:33 Pulse Rate 74 04/25/21 00:55 Respiratory Rate 16 04/25/21 00:55 Blood Pressure 103/63 04/25/21 00:55 Pulse Oximetry 97 04/25/21 00:55 MDM - Weakness MDM Narrative: Medical decision making narrative: Strength is equal to upper and lower extremities. Her clinical exam is nonfocal. This lady presents in a quite disheveled manner. Close her urine soaked. She has feces on her as well. There are excoriations on her extremities, presumably from bugs at home. She has bugs crawling out of her close in the room. She has an open sacral pressure ulcer that has been bandaged and is changed in the ER. Evidently nursing staff found bugs present in the wound. White blood cell count 15.2 which is up a bit from her previous admission. Hemoglobin stable at 10.8. BMP is benign. Her chest x-ray shows potentially a new left upper lobe infiltrate. This could be an early hospital associated pneumonia. She'll be treated as such, and admitted, at least observation for now. Lab Data: Labs: Lab Results 04/24/21 04/24/21 04/24/21 20:40 20:40 20:40 WBC 15.2 10^3/uL H 10 ^3/uL (4.0-10.0) RBC 3.61 10^6/uL L 10 ^6/uL (4.1-5.3) Hgb 10.8 g/dL L g/dL (11.5-15.3) Hct 34.3 % L % (37.0-47.0) MCV 95.0 fl fl (81-99) MCH 29.9 pg pg (28.0-34.0) MCHC 31.5 g/dL g/dL (30.0-36.0) RDW 14.3 % % (12.1-15.1) Plt Count 283 10^3/cmm 10^3 /cmm (130-400) MPV 10.7 fL H fL (7.4-10.4) Neut % (Auto) 84.1 % % Lymph % (Auto) 7.8 % % Yates % (Auto) 6.4 % % Eos % (Auto) 0.5 % % Baso % (Auto) 0.5 % % Neut # (Auto) 12.82 10^3/uL H 1 0^3/uL (1.8-7.7) Lymph # (Auto) 1.2 10^3/uL 10^3/ uL (0.8-4.8) Yates # (Auto) 1.0 10^3/uL H 10^ 3/uL (0.2-0.9) Eos # (Auto) 0.1 10^3/uL 10^3/ uL (0.0-0.8) Baso # (Auto) 0.1 10^3/uL 10^3/ uL (0.0-0.1) Nucleated RBC % (a uto) 0 % % Nucleated RBCs # 0.0 /100WBC /100W BC Sodium Cancelled Potassium Cancelled Chloride Cancelled Carbon Dioxide Cancelled Anion Gap Cancelled BUN Cancelled Creatinine Cancelled GFR Calculation Cancelled Glucose Cancelled Calculated Osmolal ity Cancelled Lactate 1.3 mmol/L mmol/L (0.5-2.2) Calcium Cancelled Total Bilirubin Cancelled AST Cancelled ALT Cancelled Alkaline Phosphata se Cancelled C-Reactive Protein Cancelled Total Protein Cancelled Albumin Cancelled Globulin Cancelled Urine Color Urine Appearance Urine pH Ur Specific Gravit y Urine Protein Urine Glucose (UA) Urine Ketones Urine Blood Urine Nitrate Urine Bilirubin Urine Urobilinogen Ur Leukocyte Janki ase 04/24/21 04/24/21 21:10 23:02 WBC RBC Hgb Hct MCV MCH MCHC RDW Plt Count MPV Neut % (Auto) Lymph % (Auto) Yates % (Auto) Eos % (Auto) Baso % (Auto) Neut # (Auto) Lymph # (Auto) Yates # (Auto) Eos # (Auto) Baso # (Auto) Nucleated RBC % (a uto) Nucleated RBCs # Sodium 138 mmol/L mmol/L (136-145) Potassium 4.0 mmol/L mmol/L (3.5-5.1) Chloride 98 mmol/L mmol/L (98-107) Carbon Dioxide 31 mmol/L H mmol/ L (22-29) Anion Gap 13.0 (5-19) BUN 12 mg/dL mg/dL (8-23) Creatinine 0.7 mg/dL mg/dL (0.5-0.9) GFR Calculation Not Reportable Glucose 94 mg/dL mg/dL (65-115) Calculated Osmolal ity 286 mOsm/kg mOsm/ kg (285-295) Lactate Calcium 8.8 mg/dL mg/dL (8.5-10.5) Total Bilirubin 0.4 mg/dL mg/dL (0.15-1.2) AST 56 U/L H U/L (0-32) ALT 36 U/L H U/L (0-33) Alkaline Phosphata se 119 IU/L H IU/L (35-105) C-Reactive Protein 17.6 mg/L H mg/L (0.0-4.9) Total Protein 6.0 g/dL L g/dL (6.6-8.7) Albumin 3.3 g/dL L g/dL (3.5-5.2) Globulin 2.7 g/dL g/dL (1.3-4.6) Urine Color Yellow (Yellow) Urine Appearance Clear (CLEAR) Urine pH 6 (5-7) Ur Specific Gravit y 1.005 (1.005-1.030) Urine Protein Neg (Negative) Urine Glucose (UA) Norm (Normal) Urine Ketones Negative (Negative) Urine Blood Neg (Negative) Urine Nitrate Negative (Negative) Urine Bilirubin Neg (Negative) Urine Urobilinogen Norm mg/dL mg/dL (Negative) Ur Leukocyte Janki ase Negative (Negative) Discharge Plan Discharge Patient Disposition: Placed in Observation Clinical Impression: Pneumonia Qualifiers: Pneumonia type: due to unspecified organism Laterality: left Lung location: upper lobe of lung Qualified Code(s): J18.9 - Pneumonia, unspecified organism Coding Level of Care Code ED Survey Research Professor for [facility] Fwd Exam Detailed
[2021-04-24 21:44] LABS: Alanine Aminotransferase 36 U/L (0-33); Albumin Level 3.3 g/dL (3.5-5.2); Alkaline Phosphatase 119 IU/L (35-105); Aspartate Amino Transferase 56 U/L (0-32); Blood Urea Nitrogen 12 mg/dL (8-23); C Reactive Protein 17.6 mg/L (0.0-4.9); Calcium 8.8 mg/dL (8.5-10.5); Carbon Dioxide 31 mmol/L (22-29); Chloride 98 mmol/L (98-107); Globulin 2.7 g/dL (1.3-4.6); Glucose 94 mg/dL (65-115); Osmolality Calculated 286 mOsm/kg (285-295); Sodium 138 mmol/L (136-145); Total Bilirubin 0.4 mg/dL (0.15-1.2)
[2021-04-24 22:00] VITALS: BP 105/78; PULSE 80; RESP 18; O2SAT 98
--- NOTE | 2021-04-24 22:59 | PC.NURSE ---
Soiled clothing, bed linens changed. Pt was found to be very dirty. Pt cleaned with soap and water. Worms and bugs found on the body. Straight cath performed for urine; pt tolerated well. Placed in gown and brief. Urine taken to the lab. Clean bandage place on sacral decubitus ulcer and dc to lower back.
[2021-04-24 23:00] VITALS: BP 104/70
[2021-04-24 23:18] LABS: Add Urine Microscopic? NO; Charge for UA Resulting for Rev
[2021-04-24 23:29] LABS: Bilirubin Urine Neg (Negative); Blood Urine Neg (Negative); Glucose Urine UA Norm (Normal); Ketones Urine Negative (Negative); Leukocyte Esterase Urine Negative (Negative); Nitrate Urine Negative (Negative); Protein Urine Neg (Negative); Specific Gravity, Urine 1.005 (1.005-1.030); Urine Appearance Clear (CLEAR); Urine Color Yellow (Yellow); Urobilinogen Urine Norm (Negative); pH Urine 6 (5-7)
--- NOTE | 2021-04-24 23:51 | PC.NURSE ---
Granddaughter Christina Paris called twice for information; was told that she is not on the list for information. She stated well you need to keep her in the hospital tonight because she can't walk and we can't take care of her. Christina Paris: ([phone])
--- NOTE | 2021-04-24 23:51 | PC.NURSE ---
Multiple family members have called to see if pt is going to be admitted. Son Mamta called and asked when will you know if she is going to be admitted because we need to go to sleep. Informed him that we were waiting on labwork and other tests to be completed in order to determine whether she would be admitted. Different family members have called approximately 8-10 times demanding to know if she will be admitted.
[2021-04-25] VITALS (11 sets, daily range): BP systolic 96–132; BP diastolic 57–75; PULSE 64–101; RESP 16–19; TEMP 36.4–36.6; O2SAT 91–98
--- NOTE | 2021-04-25 00:08 | PC.NURSE ---
[id number] Miesha Morejon called again to check on whether pt will be admitted. She states she can't come home because all she does is sleep and she can't walk so we can't take care of her. Advised her that she will be contacted when it is determined whether pt will be admitted or not. Verbalized understanding.
--- NOTE | 2021-04-25 00:59 | PC.NURSE ---
Repositioned for comfort; moved pillow to under R side from L side.
--- NOTE | 2021-04-25 01:15 | PC.NURSE ---
Brief changed, pillow placed under L side for comfort.
--- NOTE | 2021-04-25 01:16 | PC.NURSE ---
Don called for update. Advised that pt will be admitted.
[2021-04-25] MEDS: piperacillin-tazobactam 4.5 GM in sodium chloride 0.9% (plus) 50 ML IV (02:43)
--- NOTE | 2021-04-25 05:45 | PC.PHAR ---
Vancomycin is dosed at 1000mg IVPB every 12 hours to produce a predicted trough level of 18.08(population based pharmacokinetic analysis). A trough level has been ordered from the lab to be obtained before the fourth dose to confirm and adjust if needed.
[2021-04-25] MEDS: pantoprazole DR 40 mg Tablet PO (06:38)
[2021-04-25] MEDS: sodium chloride 0.9% 1,000 ML 100 ML IV (06:43)
[2021-04-25] MEDS: vancomycin 1,000 MG in sodium chloride 0.9% 250 ML 250 MG IV ×2 (06:44→18:14)
--- NOTE | 2021-04-25 08:03 | PC.NURSE ---
Patient lives in [place] with her and they both have dementia. Patient states that she is unable to walk well and that her takes care of her. Patient states that she feels like they take care of each other at home just fine. Patient is able to tell me her name, birthday, and that she is at the hospital.
--- NOTE | 2021-04-25 08:12 | PM.HP ---
Providers/Chief Complaint Admitting Physician: Amber Bowman MD Chief Complaint: weakness in bilateral legs History of Present Illness Zuleima Morejon is a 70 year old female who was discharged from the hospital within the last 24 hours or so. She had been hospitalized at this most recent time due to being found on the floor and having pain in her right thigh area. She had some mild rhabdomyolysis, cellulitis in the right thigh and was ultimately found to have a decubitus posteriorly on the left. Recommendations had been for disposition to skilled facility but she ultimately ended up going home. Home health was declined. There are multiple documented conversations with case management on disposition plans. This has been a challenge on at least several occasions when Mrs. Manuel has been in the hospital. She herself has some dementia and is not really able to provide an accurate history. She said she is too weak to be at home. I am not sure exactly how much she has been able to do since she fractured her left lower extremity in October of this year. There are some physical therapy notes that she has been able to scoot herself around on her own and sometimes do assisted transfers. EMS indicated that the reason for bringing her in was because she could not care for herself. Per EMS she had urine soaked clothing and bugs crawling on her. Multiple family members have called the emergency room stating she can't come home because all she does is sleep and she can't walk so we can't take care of her. I am not able to get much in the way of specifics from her as to what happened in the time frame from what she was discharged to today. Work-up in the emergency room showed slight elevation in white count and neutrophil count compared to last visit, increased CRP from 5 days ago, stable hemoglobin, stable electrolytes, slight elevation in transaminases, unremarkable urinalysis. Chest x-ray was suboptimal study due to rotation but suggested possibility of increased density in the left lung that was new. Nursing staff in the emergency room found multiple bugs and worms when they were cleaning her up. With her condition at presentation, family situation and changes in work-up is indicated, she is being admitted to determine further plans of care. She has received vancomycin and Zosyn in the emergency room. Review of Systems Const: Reports: chills; Denies: fever(s) Card: Reports: edema; Denies: chest pain Resp: Denies: dyspnea GI: Denies: abdominal pain, nausea, vomiting or diarrhea : Reports: urinary incontinence Musc: Reports: extremity pain (Left lower extremity, not recently worse) and other (Hurts on her backside) Skin/Breast: Reports: sores (On my backside) Neuro: Reports: weakness in extremities and difficulty walking Medications/Allergies Home Medications Medication Instructions Recorded Confirmed Last Taken Type albuterol sulfate 90 mcg/actuation 2 puff INHALATION Q4H PRN 90 Days 01/08/21 04/19/21 Unknown Rx aerosol inhaler #3 each budesonide-formoterol HFA 160 2 puff INHALATION BID 90 Days #3 01/08/21 04/19/21 Unknown Rx mcg-4.5 mcg/actuation aerosol each inhaler famotidine 20 mg tablet 20 mg PO DAILY 90 Days #90 tab 01/08/21 04/19/21 Unknown Rx sertraline 100 mg tablet 200 mg PO DAILY 90 Days #180 tab 01/08/21 04/19/21 Unknown Rx aspirin 81 mg PO DAILY 30 Days #30 tab 04/13/21 04/19/21 Unknown Rx atorvastatin 40 mg PO BEDTIME 30 Days #30 tab 04/13/21 04/19/21 Unknown Rx pantoprazole 40 mg PO DAILY 30 Days #30 tab 04/13/21 04/19/21 Unknown Rx CAM WALKER #1 ea 04/22/21 04/19/21 Unknown Rx amoxicillin-pot clavulanate 1 tab PO BID 7 Days #14 tab 04/22/21 Unknown Rx [Augmentin] collagenase clostridium histo. 1 applic TOPICAL DAILY 14 Days #30 04/22/21 Unknown Rx [Santyl] g Allergies Allergy/AdvReac Type Severity Reaction Status Date / Time morphine Allergy ADR-Itching Verified 01/26/21 14:25 PFSH Acute PFSH: Medical History (Updated 04/25/21 @ 09:01 by Amber Bowman MD) Acid reflux Anxiety and depression Benign essential hypertension COPD, moderate Dementia Dyslipidemia Elevated troponin Fracture of left ankle, lateral malleolus (~10/2020) Surgical History Hx of total hysterectomy Social History (Updated 04/25/21 @ 08:46 by Amber Bowman MD) Smoking and tobacco status: former smoker Second hand smoke exposure: Yes Alcohol intake: never Adopted: No Caregiver/support person: No Lives independently: No Household members: spouse and family Housing: House Marital status: service: No Current occupational status: disabled Pets and animals: Yes Current gender identity: Female Female Reproductive History: Para: 3 Supplemental [facility] Information: patient denies any family medical history Vitals/I&O/Wt Last Vital Signs Temp 97.5 F L 04/25/21 05:22 Pulse 79 04/25/21 07:58 Resp 16 04/25/21 07:58 BP 103/59 04/25/21 07:58 Pulse Ox 97 04/25/21 07:58 04/24/21 04/25/21 04/25/21 22:59 06:59 14:59 Intake Total 1050 / 1050 Balance 1050 / 1050 Weight last 48 hrs Weight 79.379 kg Physical Exam Narrative: EXAM NARRATIVE: Constitutional: Awake, alert, oriented to person and place but not to situation HEENT: Bitemporal wasting, extraocular movements are intact, mucous membranes moist Neck: Supple Respiratory: Clear to auscultation bilaterally without any wheezes noted presently Cardiovascular: Regular rate and rhythm Abdomen: Soft, nondistended, nontender Extremities: Left lower extremity is externally rotated the ankle and appears fixed in this position, + edema, no pain to palpation of calves or thighs noted Skin: Scattered sores in different stages of healing, decubitus left buttock present on admission and similar to description a couple of days ago although slightly larger area Neuro: Speech is clear, face symmetric, poor recall, handgrip equal Psych: Flat affect Data : 04/24/21 20:40 04/24/21 21:10 Other Labs: Laboratory Results WBC 15.2 10^3/uL (4.0-10.0) H 04/24/21 20:40 RBC 3.61 10^6/uL (4.1-5.3) L 04/24/21 20:40 Hgb 10.8 g/dL (11.5-15.3) L 04/24/21 20:40 Hct 34.3 % (37.0-47.0) L 04/24/21 20:40 MCV 95.0 fl (81-99) 04/24/21 20:40 MCH 29.9 pg (28.0-34.0) 04/24/21 20:40 MCHC 31.5 g/dL (30.0-36.0) 04/24/21 20:40 RDW 14.3 % (12.1-15.1) 04/24/21 20:40 Plt Count 283 10^3/cmm (130-400) 04/24/21 20:40 MPV 10.7 fL (7.4-10.4) H 04/24/21 20:40 Neut % (Auto) 84.1 % 04/24/21 20:40 Lymph % (Auto) 7.8 % 04/24/21 20:40 Dickey % (Auto) 6.4 % 04/24/21 20:40 Eos % (Auto) 0.5 % 04/24/21 20:40 Baso % (Auto) 0.5 % 04/24/21 20:40 Neut # (Auto) 12.82 10^3/uL (1.8-7.7) H 04/24/21 20:40 Lymph # (Auto) 1.2 10^3/uL (0.8-4.8) 04/24/21 20:40 Dickey # (Auto) 1.0 10^3/uL (0.2-0.9) H 04/24/21 20:40 Eos # (Auto) 0.1 10^3/uL (0.0-0.8) 04/24/21 20:40 Baso # (Auto) 0.1 10^3/uL (0.0-0.1) 04/24/21 20:40 Nucleated RBC % (auto) 0 % 04/24/21 20:40 Nucleated RBCs # 0.0 /100WBC 04/24/21 20:40 Sodium 138 mmol/L (136-145) 04/24/21 21:10 Potassium 4.0 mmol/L (3.5-5.1) 04/24/21 21:10 Chloride 98 mmol/L (98-107) 04/24/21 21:10 Carbon Dioxide 31 mmol/L (22-29) H 04/24/21 21:10 Anion Gap 13.0 (5-19) 04/24/21 21:10 BUN 12 mg/dL (8-23) 04/24/21 21:10 Creatinine 0.7 mg/dL (0.5-0.9) 04/24/21 21:10 GFR Calculation Not Reportable 04/24/21 21:10 Glucose 94 mg/dL (65-115) 04/24/21 21:10 Calculated Osmolality 286 mOsm/kg (285-295) 04/24/21 21:10 Lactate 1.3 mmol/L (0.5-2.2) 04/24/21 20:40 Calcium 8.8 mg/dL (8.5-10.5) 04/24/21 21:10 Total Bilirubin 0.4 mg/dL (0.15-1.2) 04/24/21 21:10 AST 56 U/L (0-32) H 04/24/21 21:10 ALT 36 U/L (0-33) H 04/24/21 21:10 Alkaline Phosphatase 119 IU/L (35-105) H 04/24/21 21:10 C-Reactive Protein 17.6 mg/L (0.0-4.9) H 04/24/21 21:10 Total Protein 6.0 g/dL (6.6-8.7) L 04/24/21 21:10 Albumin 3.3 g/dL (3.5-5.2) L 04/24/21 21:10 Globulin 2.7 g/dL (1.3-4.6) 04/24/21 21:10 Urine Color Yellow (Yellow) 04/24/21 23:02 Urine Appearance Clear (CLEAR) 04/24/21 23:02 Urine pH 6 (5-7) 04/24/21 23:02 Ur Specific Embudo 1.005 (1.005-1.030) 04/24/21 23:02 Urine Protein Neg (Negative) 04/24/21 23:02 Urine Glucose (UA) Norm (Normal) 04/24/21 23:02 Urine Ketones Negative (Negative) 04/24/21 23:02 Urine Blood Neg (Negative) 04/24/21 23:02 Urine Nitrate Negative (Negative) 04/24/21 23:02 Urine Bilirubin Neg (Negative) 04/24/21 23:02 Urine Urobilinogen Norm mg/dL (Negative) 04/24/21 23:02 Ur Leukocyte Esterase Negative (Negative) 04/24/21 23:02 Impressions Chest X-Ray 04/24/21 20:27 IMPRESSION: 1. The study is limited by suboptimal patient positioning. Patient is rotated leftward. 2. Increased density near the left lung apex, which may represent early/mild infiltrate. This is new when compared to previous studies. 3. No additional suspected infiltrates are identified. Radiation Dose CTDIVOL = (mGy): DLP = (mGy-cm) A&P Assessment and plan (1) Weakness: and inability to walk, which have been present to some degree since fracture of left lower extremity earlier this year. Family appears unable or possibly unwilling to help patient attend to activities of daily living after discharge. Status: Acute (2) Failure to thrive: Acute on chronic Status: Chronic Qualifiers: Failure to thrive age range: in adult Qualified Code(s): R62.7 - Adult failure to thrive (3) Cellulitis: Discharged home on Augmentin for cellulitis 04/22/2021, appears improved Status: Acute Qualifiers: Site of cellulitis: extremity Site of cellulitis of extremity: lower extremity Laterality: right Qualified Code(s): L03.115 - Cellulitis of right lower limb (4) Stage II decubitus ulcer: present prior to this admisson Status: Acute Qualifiers: Pressure injury location: contiguous region involving back and hip Laterality: left Qualified Code(s): L89.42 - Pressure ulcer of contiguous site of back, buttock and hip, stage 2 (5) COPD (chronic obstructive pulmonary disease): Status: Acute Qualifiers: COPD type: unspecified COPD Qualified Code(s): J44.9 - Chronic obstructive pulmonary disease, unspecified (6) Dementia: Status: Chronic Qualifiers: Dementia type: unspecified type Dementia behavioral disturbance: with behavioral disturbance Qualified Code(s): F03.91 - Unspecified dementia with behavioral disturbance Additional A&P Information Possible infiltrate on CXR without reported new respiratory symptoms Observation admission for now Check procalcitonin Continue vancomycin and Zosyn currently Hold Augmentin which she was discharged on 2 days ago for the time being Monitor for development of acute respiratory symptoms or hypoxemia Continue Santyl to decubitus PT and OT evaluation Albuterol if needed Address remaining home medications after able to clarify the medication list Case management to assist in discussions with the family regarding what might of happened when patient went home and potential options for the future to optimize their ability to care for her or consider at least temporary placement to help her get back on her feet. I know that this has been addressed on several different occasions without different result the last few months. Currently anticipate patient will again go home without any care beyond that provided by her family although would ideally benefit from skilled placement at least in the short-term to maximize her chances of improving. I am afraid if she continues on the current path she is going to continue to decline to the point of eventually succumbing to the situation that has arisen since she fractured her ankle. Lovenox for DVT prophylaxis Supportive care otherwise Discussed with patient that we were going to keep her on antibiotics and wound care and see how she did and try to determine plan to get her home Full code Attestations Medical Necessity Statement*: Currently anticipate a stay less than two midnights in this patient who was just discharged and comes back in with family indicating they cannot take care of her. She does have some abnormalities as described with plan of care as noted. Coding Level of Care Code Acute Thermal Cutter Hand for Drake Mercado Diagnoses Weakness R53.1 Failure to thrive R62.7 Failure to thrive age range: in adult Cellulitis L03.115 Site of cellulitis: extremity Site of cellulitis of extremity: lower extremity Laterality: right Stage II decubitus ulcer L89.42 Pressure injury location: contiguous region involving back and hip Laterality: left COPD (chronic obstructive pulmonary disease) J44.9 COPD type: unspecified COPD Dementia F03.91 Dementia type: unspecified type Dementia behavioral disturbance: with behavioral disturbance
[2021-04-25] MEDS: piperacillin-tazobactam 3.375 GM in sodium chloride 0.9% (plus) 50 ML IV ×2 (09:55→21:03)
[2021-04-25] MEDS: enoxaparin 40 mg/0.4 mL Syringe SUBCUT (09:59)
[2021-04-25 10:09] LABS: Procalcitonin 0.14 ng/mL (0-0.5)
--- NOTE | 2021-04-25 12:49 | PC.PHAR ---
pt unable to verify medications - pt states she does not know what her meds are. verified by last filled meds
--- NOTE | 2021-04-25 19:03 | PC.NURSE ---
Report to Belinda COVARRUBIAS at this time.
--- NOTE | 2021-04-25 21:29 | P.PN_ITS ---
Subjective Subjective: Interval history: Reports she is doing okay. She has been having difficulty with more weakness in her legs, and says could not feel them at one point. At home. She knows she is in [facility] . She does not remember the year. When asked why she was brought to the hospital, states because could not feel her legs. Asking her whom she lives with, states with her . When asked if he helps her with daily tasks, states he does. When asked if he helps her with showers, states yes takes me to shower. When asked how, states just does not . When asked if her is able to walk, states no, not very well . Discussing with her at the beginning of conversation possible pneumonia, she is unable to recall this at the end of the discussion. Vitals/I&O/Wt Last Vital Signs Temp 97.8 F 04/25/21 15:49 Pulse 68 04/25/21 21:11 Resp 18 04/25/21 21:11 BP 96/57 04/25/21 15:49 Pulse Ox 91 04/25/21 21:11 04/25/21 04/25/21 04/25/21 06:59 14:59 22:59 Intake Total 1050 / 1050 660 / 660 1453.333 / 2113.333 Balance 1050 / 1050 660 / 660 1453.333 / 2113.333 Weight last 48 hrs Weight 79.379 kg Physical Exam Const: COMMON NORMALS: no acute distress GENERAL APPEARANCE: disheveled ORIENTATION/CONSCIOUSNESS: Yes oriented to person and Yes oriented to place; not oriented to time OTHER: Very poor historian HENMT: COMMON NORMALS: oropharynx normal Neck/C-Spine: COMMON NORMALS: no JVD Resp: COMMON NORMALS: normal respiratory effort and clear to auscultation bilaterally AUSCULTATION: clear to auscultation bilaterally and diminished lung sounds Cardio: COMMON NORMALS: no JVD, regular rhythm, S1 normal heart sound present, S2 normal heart sound present and No murmurs present (Cardio) RHYTHM: regular rhythm HEART SOUNDS: S1 normal heart sound present and S2 normal heart sound present GI: COMMON NORMALS: Normal to inspection, nondistended, normoactive bowel sounds present, Soft to palpation and non-tender PALPATION: Yes Soft to palpation Extremity: COMMON NORMALS: no joint enlargement GENERAL: Yes edema Neuro: SENSORIUM/ORIENTATION: Yes oriented to person, Yes oriented to place and No oriented to time OTHER: Generally weak, worse in lower extremities, cannot lift them against gravity with some effort. Skin: OTHER: Multiple shallow ulcerations/excoriations on her feet, 2 skin tears on lateral left calf, pressure ulcers on sacrum and lower back Data : 04/24/21 20:40 04/24/21 21:10 Micro: Microbiology 04/25/21 09:50 Blood Culture - Preliminary Blood SPECIMEN COLLECTED 04/25/21 09:48 Blood Culture - Preliminary Blood SPECIMEN COLLECTED A&P Assessment and plan (1) Weakness: Assess CT thoracic and lumbar spine. Leg weakness, reports at home was unable to feel her legs. Currently somewhat inconsistent but appears to have symmetrical sensation, again inconsistent answers, but does not appear to have sensory neglect. Some generalized weakness, worse in lower extremities. Possible pneumonia. Cellulitis. Weakness and inability to walk, which have been present to some degree since fracture of left lower extremity earlier this year. Limited social support with who is reported to have dementia, and she states is not entirely ambulatory. Appears the majority of the family has moved away. Status: Acute (2) Failure to thrive: Acute on chronic Status: Chronic Qualifiers: Failure to thrive age range: in adult Qualified Code(s): R62.7 - Adult failure to thrive (3) Cellulitis: Discharged home on Augmentin for cellulitis 04/22/2021, appears improved Status: Acute Qualifiers: Site of cellulitis: extremity Site of cellulitis of extremity: lower extremity Laterality: right Qualified Code(s): L03.115 - Cellulitis of right lower limb (4) Stage II decubitus ulcer: present prior to this admisson Status: Acute Qualifiers: Pressure injury location: contiguous region involving back and hip Laterality: left Qualified Code(s): L89.42 - Pressure ulcer of contiguous site of back, buttock and hip, stage 2 (5) COPD (chronic obstructive pulmonary disease): Status: Acute Qualifiers: COPD type: unspecified COPD Qualified Code(s): J44.9 - Chronic obstructive pulmonary disease, unspecified (6) Dementia: Status: Chronic Qualifiers: Dementia type: unspecified type Dementia behavioral disturbance: with behavioral disturbance Qualified Code(s): F03.91 - Unspecified dementia with behavioral disturbance Additional A&P Information Possible pneumonia: With worsened leukocytosis, mostly neutrophilic. General ized weakness. Continue vancomycin and Zosyn at this time. Monitor for symptom changes. Pressure ulcers: Sacrum and lower back, mildly necrotic base. Apply Santyl. Add protein shakes. Additional assessment of weakness as above. PT, OT. Case management to assist in discussions with the family regarding what might of happened when patient went home and potential options for the future to optimize their ability to care for her or consider at least temporary placement to help her get back on her feet. I know that this has been addressed on several different occasions without different result the last few months. Currently anticipate patient will again go home without any care beyond that provided by her family although would ideally benefit from skilled placement at least in the short-term to maximize her chances of improving. I am afraid if she continues on the current path she is going to continue to decline to the point of eventually succumbing to the situation that has arisen since she fractured her ankle. Attestations Medical Necessity Statement*: Admission of over 2 midnights is needed for assessment management of weakness, inability to walk along with rising status, possible pneumonia, recent cellulitis, poor social support. Coding Level of Care Code Acute Passport Support Manager for g Fwd Diagnoses Weakness R53.1 Failure to thrive R62.7 Failure to thrive age range: in adult Cellulitis L03.115 Site of cellulitis: extremity Site of cellulitis of extremity: lower extremity Laterality: right Stage II decubitus ulcer L89.42 Pressure injury location: contiguous region involving back and hip Laterality: left COPD (chronic obstructive pulmonary disease) J44.9 COPD type: unspecified COPD Dementia F03.91 Dementia type: unspecified type Dementia behavioral disturbance: with behavioral disturbance
--- NOTE | 2021-04-25 21:30 | CTR_ITS ---
PROCEDURE INFORMATION: Exam: CT Thoracic Spine Without Contrast Exam date and time: 04/25/2021 9:30 PM Age: 70 years old Clinical indication: Patient HX: C/O ble weakness; Additional info: Leg weakness TECHNIQUE: Imaging protocol: Computed tomography images of the thoracic spine without contrast. Radiation optimization: All CT scans at this facility use at least one of these dose optimization techniques: automated exposure control; mA and/or kV adjustment per patient size (includes targeted exams where dose is matched to clinical indication); or iterative reconstruction. COMPARISON: CT abdomen pelvis w con* [id number] 04/19/2021 2:35 PM RADIATION DOSE METRICS: Total DLP (mGy-cm): 3847.56 FINDINGS: Vertebrae: No acute fracture. Normal alignment. T1-T2: No significant disc protrusion. No severe spinal canal stenosis. No significant neural foraminal narrowing. T2-T3: No significant disc protrusion. No severe spinal canal stenosis. No significant neural foraminal narrowing. T3-T4: No significant disc protrusion. No severe spinal canal stenosis. No significant neural foraminal narrowing. T4-T5: No significant disc protrusion. No severe spinal canal stenosis. No significant neural foraminal narrowing. T5-T6: No significant disc protrusion. No severe spinal canal stenosis. No significant neural foraminal narrowing. T6-T7: No significant disc protrusion. No severe spinal canal stenosis. No significant neural foraminal narrowing. T7-T8: No significant disc protrusion. No severe spinal canal stenosis. No significant neural foraminal narrowing. T8-T9: No significant disc protrusion. No severe spinal canal stenosis. No significant neural foraminal narrowing. T9-T10: No significant disc protrusion. No severe spinal canal stenosis. No significant neural foraminal narrowing. T10-T11: No significant disc protrusion. No severe spinal canal stenosis. No significant neural foraminal narrowing. T11-T12: No significant disc protrusion. No severe spinal canal stenosis. No significant neural foraminal narrowing. T12-L1: No significant disc protrusion. No severe spinal canal stenosis. No significant neural foraminal narrowing. CT/CT thoracic spin wo con* [id number] IMPRESSION: Unremarkable thoracic spine. Radiation Dose CTDIVOL = (mGy): DLP = 3847.56 (mGy-cm)
--- NOTE | 2021-04-25 21:30 | CTR_ITS ---
PROCEDURE INFORMATION: Exam: CT Lumbar Spine Without Contrast Exam date and time: 04/25/2021 9:30 PM Age: 70 years old Clinical indication: Patient HX: C/O blw weakness; Additional info: Leg weakness TECHNIQUE: Imaging protocol: Computed tomography images of the lumbar spine without contrast. Radiation optimization: All CT scans at this facility use at least one of these dose optimization techniques: automated exposure control; mA and/or kV adjustment per patient size (includes targeted exams where dose is matched to clinical indication); or iterative reconstruction. COMPARISON: CR Lumbar Spine 2-3 views* [id number] 03/06/2015 12:56 PM RADIATION DOSE METRICS: Total DLP (mGy-cm): 1621.66 FINDINGS: Vertebrae: There is a left convex scoliosis centered L3-L4 with mild to moderate degenerative changes. There is fusion of the L4 and L5 vertebrae mild anterior wedging causing a focal kyphosis at this level. There is a 6th lumbar vertebral body. L1-L2: No significant disc protrusion. No severe spinal canal stenosis. No significant neural foraminal narrowing. L2-L3: No significant disc protrusion. No severe spinal canal stenosis. No significant neural foraminal narrowing. L3-L4: No significant disc protrusion. No severe spinal canal stenosis. No significant neural foraminal narrowing. L4-L5: No significant disc protrusion. No severe spinal canal stenosis. No significant neural foraminal narrowing. L5-S1: No significant disc protrusion. No severe spinal canal stenosis. No significant neural foraminal narrowing. Other bones/joints: There is severe stenosis of the left L5-6 neural foramen. The nerve root is compressed within the neural foramen. Kidneys and ureters: There is a 7 mm density in the posterior right kidney which may be calcification from previous injury or infection. Soft tissues: Unremarkable. CT/CT lumbar spine wo con* [id number] IMPRESSION: Kyphoscoliosis with L4 and L5 fusion and a 6th lumbar vertebral body. Severe left L5-6 neural foramen stenosis. Radiation Dose CTDIVOL = (mGy): DLP = 1621.66 (mGy-cm)
--- NOTE | 2021-04-25 23:55 | PC.NURSE ---
Off of unit at this time. In CT.
[2021-04-26] VITALS (8 sets, daily range): BP systolic 99–128; BP diastolic 56–69; PULSE 67–82; RESP 16–19; TEMP 36.5–37.1; O2SAT 91–97
[2021-04-26] MEDS: piperacillin-tazobactam 3.375 GM in sodium chloride 0.9% (plus) 50 ML IV ×3 (02:13→18:30)
[2021-04-26] MEDS: vancomycin 1,000 MG in sodium chloride 0.9% 250 ML 250 MG IV ×2 (06:14→17:11)
[2021-04-26 06:24] LABS: Basophils % 0.5 %; Eosinophils # 0.2 10^3/uL (0.0-0.8); Eosinophils % 2.3 %; Hematocrit 26.8 % (37.0-47.0); Hemoglobin 8.3 g/dL (11.5-15.3); Lymphocytes # 1.2 10^3/uL (0.8-4.8); Lymphocytes % 18.8 %; Mean Corpuscular Hemoglobin 29.9 pg (28.0-34.0); Mean Corpuscular Volume 96.4 fl (81-99); Mean Platelet Volume 10.5 fL (7.4-10.4); Monocytes # 0.5 10^3/uL (0.2-0.9); Neutrophils # 4.57 10^3/uL (1.8-7.7); Neutrophils % 70.9 %; Nucleated Red Blood Cells % 0 %; Platelet Count 224 10^3/cmm (130-400); Red Blood Count 2.78 10^6/uL (4.1-5.3); Red Cell Distribution Width 14.6 % (12.1-15.1); White Blood Count 6.4 10^3/uL (4.0-10.0)
[2021-04-26 06:50] LABS: Alanine Aminotransferase 32 U/L (0-33); Albumin Level 2.8 g/dL (3.5-5.2); Alkaline Phosphatase 106 IU/L (35-105); Aspartate Amino Transferase 40 U/L (0-32); Blood Urea Nitrogen 11 mg/dL (8-23); Calcium 8.3 mg/dL (8.5-10.5); Carbon Dioxide 28 mmol/L (22-29); Chloride 103 mmol/L (98-107); Globulin 2.6 g/dL (1.3-4.6); Glucose 90 mg/dL (65-115); Magnesium 1.7 mg/dL (1.7-2.3); Osmolality Calculated 289 mOsm/kg (285-295); Phosphorus 3.1 mg/dL (2.5-4.5); Sodium 140 mmol/L (136-145); Total Bilirubin 0.3 mg/dL (0.15-1.2); Total Protein 5.4 g/dL (6.6-8.7)
[2021-04-26 06:51] LABS: Anion Gap 12.4 (5-19); Potassium 3.4 mmol/L (3.5-5.1)
[2021-04-26] MEDS: collagenase oint 30 gm 1 APPLIC TOPICAL (09:13)
[2021-04-26] MEDS: sertraline 100 mg Tablet 200 MG PO (09:13)
[2021-04-26] MEDS: pantoprazole DR 40 mg Tablet PO (09:13)
[2021-04-26] MEDS: enoxaparin 40 mg/0.4 mL Syringe SUBCUT (09:13)
[2021-04-26] MEDS: aspirin 81 mg EC Tablet PO (09:13)
--- NOTE | 2021-04-26 11:11 | PC.NURSE ---
Santyl is for the pressure injury located on the upper left flank and to be covered with a Covaderm. Zinc oxide is for the pressure wound on her coccyx and covered with a Covaderm as well.
[2021-04-26 17:50] LABS: Vancomycin Trough 22.2 ug/mL (10-15)
--- NOTE | 2021-04-26 18:24 | PC.PHAR ---
Vancomycin trough before fourth dose is 22.2. Lower dose to 1gm IVPB every 24 hours with trough before the fourth dose, but this time let's not give the dose if the trough is over 20.
[2021-04-26] MEDS: albuterol 8 gm MDI 2 PUFF INHALATION (20:05)
[2021-04-26] MEDS: atorvastatin 40 mg Tablet PO (20:12)
[2021-04-26] MEDS: acetaminophen 325 mg Tablet 650 MG PO (20:12)
--- NOTE | 2021-04-26 21:27 | P.PN_ITS ---
Subjective Subjective: Interval history: During my visit her wounds are being examined, dressing changed. She denies chills, fever. Reports no significant pain. No chest pain or pressure. No trouble breathing. Vitals/I&O/Wt Last Vital Signs Temp 98.4 F 04/26/21 20:00 Pulse 76 04/26/21 20:00 Resp 17 04/26/21 20:00 BP 111/69 04/26/21 20:00 Pulse Ox 95 04/26/21 20:00 04/26/21 04/26/21 04/26/21 06:59 14:59 22:59 Intake Total 300 / 2473.333 990 / 990 740 / 1730 Output Total 200 / 200 Balance 300 / 2473.333 990 / 990 540 / 1530 Physical Exam Const: COMMON NORMALS: no acute distress GENERAL APPEARANCE: disheveled ORIENTATION/CONSCIOUSNESS: Yes oriented to person and Yes oriented to place; not oriented to time OTHER: Poor historian HENMT: COMMON NORMALS: oropharynx normal Neck/C-Spine: COMMON NORMALS: no JVD Resp: COMMON NORMALS: normal respiratory effort and clear to auscultation bilaterally AUSCULTATION: clear to auscultation bilaterally and diminished lung sounds Cardio: COMMON NORMALS: no JVD, regular rhythm, S1 normal heart sound present, S2 normal heart sound present and No murmurs present (Cardio) RHYTHM: regular rhythm HEART SOUNDS: S1 normal heart sound present and S2 normal heart sound present GI: COMMON NORMALS: Normal to inspection, nondistended, normoactive bowel sounds present, Soft to palpation and non-tender PALPATION: Yes Soft to palpation Extremity: COMMON NORMALS: no joint enlargement GENERAL: Yes edema Neuro: SENSORIUM/ORIENTATION: Yes oriented to person, Yes oriented to place and No oriented to time OTHER: Generally weak, worse in lower extremities, cannot lift them against gravity with some effort. Skin: OTHER: Sacrum laterally to the left of sacrum horizontal 3 x 6 cm i rregularly shaped ulceration with some maceration, moisture damage, no undermining or tunneling, minimal subcutaneous tissue exposure. No necrosis. Mild surrounding erythema. Left upper pelvis/flank pain, horizontal, 0.5 cm x 10 cm wound healing from prior, but with a strip of necrotic eschar in the wound bed. Multiple shallow ulcerations/excoriations on her feet, 2 skin tears on lateral left calf Urinary Catheter Management^: Santos: Cath Placed During This Visit: yes Reason for Continuing Indwelling Catheter: Assist Healing of Perineal & Sacral Wounds- Incontinent Patients Urinary Catheter Date of Insertion: 04/26/21 Urinary Catheter Time of Insertion: 12:00 Data : 04/26/21 05:57 04/26/21 05:57 Micro: Microbiology 04/25/21 09:50 Blood Culture - Preliminary Blood NEGATIVE TO DATE 04/25/21 09:48 Blood Culture - Preliminary Blood NEGATIVE TO DATE A&P Assessment and plan (1) Weakness: Assess CT thoracic and lumbar spine. Leg weakness, reports at home was unable to feel her legs. Currently somewhat inconsistent but appears to have symmetrical sensation, again inconsistent answers, but does not appear to have sensory neglect. Some generalized weakness, worse in lower extremities. Possible pneumonia. Cellulitis. Weakness and inability to walk, which have been present to some degree since fracture of left lower extremity earlier this year. Limited social support with who is reported to have dementia, and she states is not entirely ambulatory. Appears the majority of the family has moved away. Status: Acute (2) Failure to thrive: Acute on chronic Status: Chronic Qualifiers: Failure to thrive age range: in adult Qualified Code(s): R62.7 - Adult failure to thrive (3) Stage II decubitus ulcer: Had to place a Santos due to moisture damage to the sacral wound. She urinates and defecates on herself. For sacral wound, keep dry. Zinc oxide. Covaderm. There is mild surrounding erythema, possible area of cellulitis. He is on vancomycin, Zosyn. The wound on on left flank with strip of necrotic eschar in the bed - Santyl, Covaderm. Encourage nutrition. Added Ensure Plus. Reported worms found in ER at the sacral decubitus ulcer. Appears to have some increase in eosinophils today. Will request stool ova and parasites. Status: Acute Qualifiers: Pressure injury location: contiguous region involving back and hip Laterality: left Qualified Code(s): L89.42 - Pressure ulcer of contiguous site of back, buttock and hip, stage 2 (4) Cellulitis: Discharged home on Augmentin for cellulitis 04/22/2021, appears improved Status: Acute Qualifiers: Site of cellulitis: extremity Site of cellulitis of extremity: lower extremity Laterality: right Qualified Code(s): L03.115 - Cellulitis of right lower limb (5) COPD (chronic obstructive pulmonary disease): Status: Acute Qualifiers: COPD type: unspecified COPD Qualified Code(s): J44.9 - Chronic obstructive pulmonary disease, unspecified (6) Dementia: Status: Chronic Qualifiers: Dementia type: unspecified type Dementia behavioral disturbance: with behavioral disturbance Qualified Code(s): F03.91 - Unspecified dementia with behavioral disturbance Additional A&P Information Possible pneumonia: With worsened leukocytosis, shortness of breath on admission. Leukocytosis now improved. On room air. Generalized weakness. Continue vancomycin and Zosyn at this time. Monitor for symptom changes. Leg weakness: Obtain CT thoracic lumbar spine. Lumbar spine with kyphoscoliosis with L4 and L5 fusion and 6 lumbar vertebral body. Severe L5-6 neuroforaminal stenosis. Radiculopathy likely responsible for the sensorimotor abnormalities. Thoracic spine CT unremarkable. Pain control, lidocaine patch, Tylenol. Mobilize with PT, OT. Improve nutrition, encourage p.o. intake as tolerating. Added protein shakes. Failure to thrive, poor social support: Patient lives at home with her who has dementia, she also states he is not entirely ambulatory. Came back to the hospital 3 days after discharge, per her it was due to sensorimotor symptoms in her legs. Reported that family had stated that they were not able to take care of her at home at the time, although per case management discussion appears fpc has been declined by family. Would be good if she could at least get home health care. It may be difficult to family to care for her with disabled , with her having urinary and fecal issues, mostly nonmobile, possibly due to radiculopathy as above, which we will try to work on, but appears also to be lacking in motivation. On presentation disheveled, clothes soaked in urine, feces on her as well. Bugs crawling out of her clothes in the room. Reported worms in the sacral wound. Attestations Medical Necessity Statement*: Continue admission for assessment of management of failure to thrive, lack of mobility, and lady with limited social support, L5-6 neuroforaminal stenosis, complicated with sacral wound with mild surrounding cellulitis, in setting of urinary and fecal incontinence, post discharge planning and arrangements. Coding Level of Care Code Acute Packing Machine Feeder for Chg Fwd Diagnoses Weakness R53.1 Failure to thrive R62.7 Failure to thrive age range: in adult Stage II decubitus ulcer L89.42 Pressure injury location: contiguous region involving back and hip Laterality: left Cellulitis L03.115 Site of cellulitis: extremity Site of cellulitis of extremity: lower extremity Laterality: right COPD (chronic obstructive pulmonary disease) J44.9 COPD type: unspecified COPD Dementia F03.91 Dementia type: unspecified type Dementia behavioral disturbance: with behavioral disturbance
[2021-04-27] VITALS (8 sets, daily range): BP systolic 99–109; BP diastolic 56–73; PULSE 62–81; RESP 14–18; TEMP 36.4–36.9; O2SAT 92–97
[2021-04-27] MEDS: piperacillin-tazobactam 3.375 GM in sodium chloride 0.9% (plus) 50 ML IV ×3 (03:12→18:07)
[2021-04-27 06:34] LABS: Basophils % 0.5 %; Eosinophils # 0.1 10^3/uL (0.0-0.8); Eosinophils % 2.1 %; Hematocrit 27.1 % (37.0-47.0); Hemoglobin 8.3 g/dL (11.5-15.3); Lymphocytes # 1.1 10^3/uL (0.8-4.8); Lymphocytes % 18.8 %; Mean Corpuscular HGB Conc 30.6 g/dL (30.0-36.0); Mean Corpuscular Hemoglobin 30.4 pg (28.0-34.0); Mean Corpuscular Volume 99.3 fl (81-99); Monocytes # 0.5 10^3/uL (0.2-0.9); Monocytes % 7.7 %; Neutrophils # 4.27 10^3/uL (1.8-7.7); Neutrophils % 70.4 %; Nucleated Red Blood Cells % 0 %; Platelet Count 217 10^3/cmm (130-400); Red Blood Count 2.73 10^6/uL (4.1-5.3); White Blood Count 6.1 10^3/uL (4.0-10.0)
[2021-04-27 06:51] LABS: Alanine Aminotransferase 22 U/L (0-33); Albumin Level 2.6 g/dL (3.5-5.2); Alkaline Phosphatase 98 IU/L (35-105); Anion Gap 12.2 (5-19); Aspartate Amino Transferase 25 U/L (0-32); Blood Urea Nitrogen 13 mg/dL (8-23); Calcium 8.2 mg/dL (8.5-10.5); Carbon Dioxide 27 mmol/L (22-29); Chloride 103 mmol/L (98-107); Globulin 2.5 g/dL (1.3-4.6); Glucose 96 mg/dL (65-115); Osmolality Calculated 288 mOsm/kg (285-295); Potassium 3.2 mmol/L (3.5-5.1); Sodium 139 mmol/L (136-145); Total Bilirubin 0.3 mg/dL (0.15-1.2); Total Protein 5.1 g/dL (6.6-8.7)
[2021-04-27] MEDS: albuterol 8 gm MDI 2 PUFF INHALATION (07:59)
[2021-04-27] MEDS: enoxaparin 40 mg/0.4 mL Syringe SUBCUT (08:30)
[2021-04-27] MEDS: lidocaine 5% Patch 1 PATCH TOPICAL ×2 (08:31→20:05)
[2021-04-27] MEDS: sertraline 100 mg Tablet 200 MG PO (08:31)
[2021-04-27] MEDS: pantoprazole DR 40 mg Tablet PO (08:31)
[2021-04-27] MEDS: aspirin 81 mg EC Tablet PO (08:31)
[2021-04-27] MEDS: collagenase oint 30 gm 1 APPLIC TOPICAL (08:32)
--- NOTE | 2021-04-27 13:28 | PC.NURSE ---
updated patient's daughter Ingrid.
--- NOTE | 2021-04-27 14:55 | PC.NUTR ---
Nutrition note: Clarified MD order for Ensure with meals to strawberry, per assessment by Mariana Stubbs RD. Noted MD recommended 1x/day, however MD order already in place for 3x/day. Clarified with dietary staff.
--- NOTE | 2021-04-27 16:22 | PM.PN ---
Subjective Subjective: Interval history: With visitHospital course, labs appreciated. Examination patient sitting up in chair. Therapy. Asking to be placed back into bed as soon as possible. Denies any nausea vomiting, headache. Is alert to self, place, people. Not sure of the ear. Has remained hemodynamically stable and afebrile. Currently on room air saturating 95%. Vitals/I&O/Wt Last Vital Signs Temp 98.5 F 04/27/21 16:00 Pulse 69 04/27/21 16:00 Resp 16 04/27/21 16:00 BP 109/67 04/27/21 16:00 Pulse Ox 95 04/27/21 16:00 04/27/21 04/27/21 04/27/21 06:59 14:59 22:59 Intake Total 550 / 2330 410 / 410 50 / 460 Output Total 650 / 850 300 / 300 Balance -100 / 1480 410 / 410 -250 / 160 Physical Exam Const: COMMON NORMALS: no acute distress GENERAL APPEARANCE: disheveled ORIENTATION/CONSCIOUSNESS: Yes oriented to person and Yes oriented to place; not oriented to time OTHER: Poor historian HENMT: COMMON NORMALS: oropharynx normal Neck/C-Spine: COMMON NORMALS: no JVD Resp: COMMON NORMALS: normal respiratory effort and clear to auscultation bilaterally AUSCULTATION: clear to auscultation bilaterally and diminished lung sounds Cardio: COMMON NORMALS: no JVD, regular rhythm, S1 normal heart sound present, S2 normal heart sound present and No murmurs present (Cardio) RHYTHM: regular rhythm HEART SOUNDS: S1 normal heart sound present and S2 normal heart sound present GI: COMMON NORMALS: Normal to inspection, nondistended, normoactive bowel sounds present, Soft to palpation and non-tender PALPATION: Yes Soft to palpation Extremity: COMMON NORMALS: no joint enlargement GENERAL: Yes edema Neuro: SENSORIUM/ORIENTATION: Yes oriented to person, Yes oriented to place and No oriented to time OTHER: Generally weak, worse in lower extremities, cannot lift them against gravity with some effort. Skin: OTHER: Sacrum laterally to the left of sacrum horizontal 3 x 6 cm irregularly shaped ulceration with some maceration, moisture damage, no undermining or tunneling, minimal subcutaneous tissue exposure. No necrosis. Mild surrounding erythema. Left upper pelvis/flank pain, horizontal, 0.5 cm x 10 cm wound healing from prior, but with a strip of necrotic eschar in the wound bed. Multiple shallow ulcerations/excoriations on her feet, 2 skin tears on lateral left calf Urinary Catheter Management^: Santos: Cath Placed During This Visit: yes Reason for Continuing Indwelling Catheter: Assist Healing of Perineal & Sacral Wounds- Incontinent Patients Urinary Catheter Date of Insertion: 04/26/21 Urinary Catheter Time of Insertion: 12:00 Data : 04/27/21 06:06 04/27/21 06:06 A&P Assessment and plan (1) Weakness: Assess CT thoracic and lumbar spine. Leg weakness, reports at home was unable to feel her legs. Currently somewhat inconsistent but appears to have symmetrical sensation, again inconsistent answers, but does not appear to have sensory neglect. Some generalized weakness, worse in lower extremities. Possible pneumonia. Cellulitis. Weakness and inability to walk, which have been present to some degree since fracture of left lower extremity earlier this year. Limited social support with who is reported to have dementia, and she states is not entirely ambulatory. Appears the majority of the family has moved away. Status: Acute (2) Failure to thrive: Acute on chronic Status: Chronic Qualifiers: Failure to thrive age range: in adult Qualified Code(s): R62.7 - Adult failure to thrive (3) Stage II decubitus ulcer: Had to place a Santos due to moisture damage to the sacral wound. She urinates and defecates on herself. For sacral wound, keep dry. Zinc oxide. Covaderm. There is mild surrounding erythema, possible area of cellulitis. He is on vancomycin, Zosyn. The wound on on left flank with strip of necrotic eschar in the bed - Santyl, Covaderm. Encourage nutrition. Added Ensure Plus. Reported worms found in ER at the sacral decubitus ulcer. Appears to have some increase in eosinophils today. Will request stool ova and parasites. Status: Acute Qualifiers: Pressure injury location: contiguous region involving back and hip Laterality: left Qualified Code(s): L89.42 - Pressure ulcer of contiguous site of back, buttock and hip, stage 2 (4) Cellulitis: Discharged home on Augmentin for cellulitis 04/22/2021, appears improved Status: Acute Qualifiers: Site of cellulitis: extremity Site of cellulitis of extremity: lower extremity Laterality: right Qualified Code(s): L03.115 - Cellulitis of right lower limb (5) COPD (chronic obstructive pulmonary disease): Status: Acute Qualifiers: COPD type: unspecified COPD Qualified Code(s): J44.9 - Chronic obstructive pulmonary disease, unspecified (6) Dementia: Status: Chronic Qualifiers: Dementia type: unspecified type Dementia behavioral disturbance: with behavioral disturbance Qualified Code(s): F03.91 - Unspecified dementia with behavioral disturbance Additional A&P Information Possible pneumonia: With worsened leukocytosis, shortness of breath on admission. Leukocytosis now improved. On room air. Generalized weakness. Continue vancomycin and Zosyn at this time. Monitor for symptom changes. Leg weakness: Obtain CT thoracic lumbar spine. Lumbar spine with kyphoscoliosis with L4 and L5 fusion and 6 lumbar vertebral body. Severe L5-6 neuroforaminal stenosis. Radiculopathy likely responsible for the sensorimotor abnormalities. Thoracic spine CT unremarkable. Pain control, lidocaine patch, Tylenol. Mobilize with PT, OT. Improve nutrition, encourage p.o. intake as tolerating. Added protein shakes. Failure to thrive, poor social support: Patient lives at home with her who has dementia, she also states he is not entirely ambulatory. Came back to the hospital 3 days after discharge, per her it was due to sensorimotor symptoms in her legs. Reported that family had stated that they were not able to take care of her at home at the time, although per case management discussion appears senior care has been declined by family. Would be good if she could at least get home health care. It may be difficult to family to care for her with disabled , with her having urinary and fecal issues, mostly nonmobile, possibly due to radiculopathy as above, which we will try to work on, but appears also to be lacking in motivation. On presentation disheveled, clothes soaked in urine, feces on her as well. Bugs crawling out of her clothes in the room. Reported worms in the sacral wound. Plan for the day: Continue with physical therapy. Appreciate physical therapy evaluation. Continue with Zosyn, day 3 today. Check urinalysis. Stop vancomycin as MRSA negative. Continue with wound care. Multiple discussions regarding safe discharge planning with case management and patient's daughter Ms. Quintero over the phone along with patient as well. Family and patient continued to decline SNF placement. Family is hesitant about home health arrangement but for now is agreeable. Plan to [facility] prior to discharge. If continues to do well can plan to discharge in next 24 hours. Attestations Medical Necessity Statement*: Further hospitalization for management of decubitus ulcer/cellulitis, failure to thrive while safe discharge planning is sought Time Spent in Patient Care: Greater than 35 minutes (>than 50% of time spent in counselling and/or direct pt care on unit). 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
--- NOTE | 2021-04-27 16:36 | PC.RESP ---
PULMONARY REHAB INFORMATION SENT TO PATIENT.
[2021-04-27 17:19] LABS: Add Urine Culture? Yes; Bacteria Urine 2+ /hpf; Bilirubin Urine Neg (Negative); Blood Urine Neg (Negative); Glucose Urine UA Norm (Normal); Ketones Urine Negative (Negative); Leukocyte Esterase Urine Negative (Negative); Nitrate Urine Negative (Negative); Protein Urine Neg (Negative); Transitional Epi Cells Urine 0-4 /hpf; Urine Appearance Clear (CLEAR); Urine Color Yellow (Yellow); Urobilinogen Urine Norm (Negative); pH Urine 5 (5-7)
--- NOTE | 2021-04-27 17:46 | PC.NURSE ---
updated patient's family Miesha and she said she is going to talk to the other family members about SNF and HH. She said she will call us back with the decision.
[2021-04-27] MEDS: acetaminophen 325 mg Tablet 650 MG PO (18:32)
[2021-04-27] MEDS: atorvastatin 40 mg Tablet PO (20:05)
[2021-04-28] VITALS (7 sets, daily range): BP systolic 96–139; BP diastolic 54–90; PULSE 70–99; RESP 16–20; TEMP 36.4–37.4; O2SAT 90–97
[2021-04-28] MEDS: piperacillin-tazobactam 3.375 GM in sodium chloride 0.9% (plus) 50 ML IV ×3 (02:33→18:25)
[2021-04-28] MEDS: ondansetron 2 mg/ML SDV 2 mL 4 MG IVP ×2 (04:15→22:04)
[2021-04-28 06:17] LABS: Basophils % 0.3 %; Eosinophils # 0.2 10^3/uL (0.0-0.8); Eosinophils % 1.9 %; Hematocrit 27.1 % (37.0-47.0); Hemoglobin 8.4 g/dL (11.5-15.3); Lymphocytes # 0.5 10^3/uL (0.8-4.8); Lymphocytes % 5.9 %; Mean Corpuscular Volume 96.8 fl (81-99); Mean Platelet Volume 10.5 fL (7.4-10.4); Monocytes # 0.3 10^3/uL (0.2-0.9); Monocytes % 4.3 %; Neutrophils # 6.83 10^3/uL (1.8-7.7); Neutrophils % 87.2 %; Nucleated Red Blood Cells % 0 %; Platelet Count 228 10^3/cmm (130-400); White Blood Count 7.8 10^3/uL (4.0-10.0)
[2021-04-28 06:57] LABS: Alanine Aminotransferase 24 U/L (0-33); Albumin Level 2.9 g/dL (3.5-5.2); Alkaline Phosphatase 96 IU/L (35-105); Anion Gap 11.1 (5-19); Aspartate Amino Transferase 21 U/L (0-32); Blood Urea Nitrogen 15 mg/dL (8-23); Calcium 8.2 mg/dL (8.5-10.5); Carbon Dioxide 28 mmol/L (22-29); Chloride 102 mmol/L (98-107); Globulin 2.1 g/dL (1.3-4.6); Glucose 103 mg/dL (65-115); Osmolality Calculated 287 mOsm/kg (285-295); Potassium 3.1 mmol/L (3.5-5.1); Sodium 138 mmol/L (136-145); Total Bilirubin 0.3 mg/dL (0.15-1.2)
[2021-04-28] MEDS: enoxaparin 40 mg/0.4 mL Syringe SUBCUT (08:12)
[2021-04-28] MEDS: sertraline 100 mg Tablet 200 MG PO (08:12)
[2021-04-28] MEDS: aspirin 81 mg EC Tablet PO (08:12)
[2021-04-28] MEDS: pantoprazole DR 40 mg Tablet PO (08:12)
[2021-04-28] MEDS: lidocaine 5% Patch 1 PATCH TOPICAL ×2 (08:13→20:40)
[2021-04-28] MEDS: collagenase oint 30 gm 1 APPLIC TOPICAL (08:13)
--- NOTE | 2021-04-28 09:36 | PC.CHAP ---
Pastoral Care Encounter/Spiritual Assessment Type of Contact [] Declined nature photographer visit [] Patient/Family/Request visit [] Outpatient visit [] Follow-up visit [] Physician referral [] Code/Alert [x] Routine visit [] Staff referral [] Actively dying [] Patient sleeping [] Family support [] [] Out of room [] Palliative care [] [] Receiving care in room [] Pre-surgical visit [] Trauma [] Long length of stay [] ICU visit [] Other: Relational/Emotional Strength [x] Patient feels connected with others/family/visitors/staff [] Distress [] Loneliness/isolation [] Abandonment Spirituality of Patient [x] Person of Mary [] Attends Restorationist of their Mary [x] Believes in Prayer [] Reads Bible or Hinduism materials [] There are Spiritual issues to be addressed Reconciler Interventions [x] Prayer [x] Active listening [x] Non-anxious presence [x] Spiritual/emotional support [] Crisis/trauma care [] Spiritual counseling [] Bereavement support [] Provided bereavement packet [] Provided Bible/devotional materials [] Provided toy/stuffed animal, coloring book to patient or family member [] Provided Communion [] Anointing/[place] [] Salvation [x] Completed spiritual assessment [] Other: Impact on Illness or Injury [] Angry [] Fearful [] Anxious [] Often cries [] Exhaustion [] Unable to work [] Unable to attend pentecostalism [] Unable to walk/stand [] Unable to read [] Unable to drive [] Unable to eat/drink [] Unable to sleep [] Unable to be with family [] Patient intubated [] Other: Summary Pt difficult to understand and seemed a little hard of hearing since she would answer a question with something that was not asked. Reconciler was able to understand she has family who is concerned and checks in on her. She does not currently attend restorationism but indicated she is a person of mary and did want prayer. Time spent with patient 5m
[2021-04-28] MEDS: albuterol 8 gm MDI 2 PUFF INHALATION (09:43)
--- NOTE | 2021-04-28 14:21 | PM.PN ---
Subjective Subjective: Interval history: No acute events overnight. Patient has remained hemodynamically stable and afebrile. Currently on room air. Today morning seen while sitting in bed. As per the nurse patient had episode of vomiting earlier today morning. Patient complaining of upset stomach. Denies any abdominal pain. No diarrhea. Vitals/I&O/Wt Last Vital Signs Temp 97.5 F L 04/28/21 12:00 Pulse 74 04/28/21 12:00 Resp 16 04/28/21 12:00 BP 98/62 04/28/21 12:00 Pulse Ox 97 04/28/21 12:00 04/27/21 04/28/21 04/28/21 22:59 06:59 14:59 Intake Total 420 / 830 50 / 880 720 / 720 Output Total 300 / 300 360 / 660 Balance 120 / 530 -310 / 220 720 / 720 Physical Exam Const: COMMON NORMALS: no acute distress GENERAL APPEARANCE: disheveled ORIENTATION/CONSCIOUSNESS: Yes oriented to person and Yes oriented to place; not oriented to time OTHER: Poor historian HENMT: COMMON NORMALS: oropharynx normal Neck/C-Spine: COMMON NORMALS: no JVD Resp: COMMON NORMALS: normal respiratory effort and clear to auscultation bilaterally AUSCULTATION: clear to auscultation bilaterally and diminished lung sounds Cardio: COMMON NORMALS: no JVD, regular rhythm, S1 normal heart sound present, S2 normal heart sound present and No murmurs present (Cardio) RHYTHM: regular rhythm HEART SOUNDS: S1 normal heart sound present and S2 normal heart sound present GI: COMMON NORMALS: Normal to inspection, nondistended, normoactive bowel sounds present, Soft to palpation and non-tender PALPATION: Yes Soft to palpation Extremity: COMMON NORMALS: no joint enlargement GENERAL: Yes edema Neuro: SENSORIUM/ORIENTATION: Yes oriented to person, Yes oriented to place and No oriented to time OTHER: Generally weak, worse in lower extremities, cannot lift them against gravity with some effort. Skin: OTHER: Sacrum laterally to the left of sacrum horizontal 3 x 6 cm irregularly shaped ulceration with some maceration, moisture damage, no undermining or tunneling, minimal subcutaneous tissue exposure. No necrosis. Mild surrounding erythema. Left upper pelvis/flank pain, horizontal, 0.5 cm x 10 cm wound healing from prior, but with a strip of necrotic eschar in the wound bed. Multiple shallow ulcerations/excoriations on her feet, 2 skin tears on lateral left calf Urinary Catheter Management^: Asntos: Cath Placed During This Visit: yes Reason for Continuing Indwelling Catheter: Assist Healing of Perineal & Sacral Wounds- Incontinent Patients Urinary Catheter Date of Insertion: 04/26/21 Urinary Catheter Time of Insertion: 12:00 Data : 04/28/21 04:55 04/28/21 04:55 A&P Assessment and plan (1) Weakness: Assess CT thoracic and lumbar spine. Leg weakness, reports at home was unable to feel her legs. Currently somewhat inconsistent but appears to have symmetrical sensation, again inconsistent answers, but does not appear to have sensory neglect. Some generalized weakness, worse in lower extremities. Possible pneumonia. Cellulitis. Weakness and inability to walk, which have been present to some degree since fracture of left lower extremity earlier this year. Limited social support with who is reported to have dementia, and she states is not entirely ambulatory. Appears the majority of the family has moved away. Status: Acute (2) Failure to thrive: Acute on chronic Status: Chronic Qualifiers: Failure to thrive age range: in adult Qualified Code(s): R62.7 - Adult failure to thrive (3) Stage II decubitus ulcer: Had to place a Santos due to moisture damage to the sacral wound. She urinates and defecates on herself. For sacral wound, keep dry. Zinc oxide. Covaderm. There is mild surrounding erythema, possible area of cellulitis. He is on vancomycin, Zosyn. The wound on on left flank with strip of necrotic eschar in the bed - Santyl, Covaderm. Encourage nutrition. Added Ensure Plus. Reported worms found in ER at the sacral decubitus ulcer. Appears to have some increase in eosinophils today. Will request stool ova and parasites. Status: Acute Qualifiers: Pressure injury location: contiguous region involving back and hip Laterality: left Qualified Code(s): L89.42 - Pressure ulcer of contiguous site of back, buttock and hip, stage 2 (4) Cellulitis: Discharged home on Augmentin for cellulitis 04/22/2021, appears improved Status: Acute Qualifiers: Site of cellulitis: extremity Site of cellulitis of extremity: lower extremity Laterality: right Qualified Code(s): L03.115 - Cellulitis of right lower limb (5) COPD (chronic obstructive pulmonary disease): Status: Acute Qualifiers: COPD type: unspecified COPD Qualified Code(s): J44.9 - Chronic obstructive pulmonary disease, unspecified (6) Dementia: Status: Chronic Qualifiers: Dementia type: unspecified type Dementia behavioral disturbance: with behavioral disturbance Qualified Code(s): F03.91 - Unspecified dementia with behavioral disturbance Additional A&P Information Possible pneumonia: With worsened leukocytosis, shortness of breath on admission. Leukocytosis now improved. On room air. Generalized weakness. Continue vancomycin and Zosyn at this time. Monitor for symptom changes. Leg weakness: Obtain CT thoracic lumbar spine. Lumbar spine with kyphoscoliosis with L4 and L5 fusion and 6 lumbar vertebral body. Severe L5-6 neuroforaminal stenosis. Radiculopathy likely responsible for the sensorimotor abnormalities. Thoracic spine CT unremarkable. Pain control, lidocaine patch, Tylenol. Mobilize with PT, OT. Improve nutrition, encourage p.o. intake as tolerating. Added protein shakes. Failure to thrive, poor social support: Patient lives at home with her who has dementia, she also states he is not entirely ambulatory. Came back to the hospital 3 days after discharge, per her it was due to sensorimotor symptoms in her legs. Reported that family had stated that they were not able to take care of her at home at the time, although per case management discussion appears skilled nursing has been declined by family. Would be good if she could at least get home health care. It may be difficult to family to care for her with disabled , with her having urinary and fecal issues, mostly nonmobile, possibly due to radiculopathy as above, which we will try to work on, but appears also to be lacking in motivation. On presentation disheveled, clothes soaked in urine, feces on her as well. Bugs crawling out of her clothes in the room. Reported worms in the sacral wound. Plan for the day: Continue wound care and Zosyn. Day 4 today. Appreciate physical therapy evaluation. Continue. Check stool for C. difficile if has diarrhea. Zofran as needed. Mechanical soft diet. Had long discussion with patient's daughter Ms. Quintero yesterday for safe discharge planning. Family and patient continued to decline SNF placement. Family is hesitant about home health arrangement but for now is agreeable. Plan to hotline prior to discharge. If continues to do well can plan to discharge in next 24 hours. Attestations Medical Necessity Statement*: Hospitalization for management of decubitus ulcer, safe discharge planning given multiple recurrent admission, failure to thrive, poor social support Time Spent in Patient Care: Greater than 35 minutes (>than 50% of time spent in counselling and/or direct pt care on unit). Coding Level of Care Code Acute Floors Buffer for [facility] Fwd Diagnoses Weakness R53.1 Failure to thrive R62.7 Failure to thrive age range: in adult Stage II decubitus ulcer L89.42 Pressure injury location: contiguous region involving back and hip Laterality: left Cellulitis L03.115 Site of cellulitis: extremity Site of cellulitis of extremity: lower extremity Laterality: right COPD (chronic obstructive pulmonary disease) J44.9 COPD type: unspecified COPD Dementia F03.91 Dementia type: unspecified type Dementia behavioral disturbance: with behavioral disturbance
--- NOTE | 2021-04-28 15:44 | PC.OT ---
OT TREATMENT HELD DUE TO PATIENT N/V. WILL ATTEMPT AGAIN TOMORROW.
--- NOTE | 2021-04-28 16:23 | PC.OT ---
OT EVALUATION ATTEMPTED. FAMILY REQUESTS HOLD AT THIS TIME.
[2021-04-28] MEDS: atorvastatin 40 mg Tablet PO (20:37)
[2021-04-29] VITALS (8 sets, daily range): BP systolic 93–123; BP diastolic 59–78; PULSE 63–85; RESP 16–18; TEMP 36.7–37.7; O2SAT 91–96
[2021-04-29] MEDS: piperacillin-tazobactam 3.375 GM in sodium chloride 0.9% (plus) 50 ML IV ×3 (02:51→18:23)
[2021-04-29] MEDS: collagenase oint 30 gm 1 APPLIC TOPICAL (07:33)
[2021-04-29] MEDS: aspirin 81 mg EC Tablet PO (07:33)
[2021-04-29] MEDS: pantoprazole DR 40 mg Tablet PO (07:33)
[2021-04-29] MEDS: sertraline 100 mg Tablet 200 MG PO (07:33)
[2021-04-29] MEDS: lidocaine 5% Patch 1 PATCH TOPICAL (07:34)
[2021-04-29] MEDS: enoxaparin 40 mg/0.4 mL Syringe SUBCUT (07:34)
[2021-04-29] MEDS: albuterol 8 gm MDI 2 PUFF INHALATION (08:26)
--- NOTE | 2021-04-29 15:19 | PC.NURSE ---
Notified Dr. Rossi stool culture result of Campylobacter.
--- NOTE | 2021-04-29 19:25 | PM.PN ---
Subjective Subjective: Interval history: Improving diarrhea, noed campylobacter, no fever, chills, nausea or vomiting. . Vitals/I&O/Wt Last Vital Signs Temp 99.3 F 04/29/21 15:15 Pulse 69 04/29/21 15:15 Resp 17 04/29/21 15:15 BP 111/67 04/29/21 15:15 Pulse Ox 96 04/29/21 15:15 04/29/21 04/29/21 04/29/21 06:59 14:59 22:59 Intake Total 120 / 1300 770 / 770 50 / 820 Output Total 550 / 550 Balance 120 / 875 770 / 770 -500 / 270 Physical Exam Const: COMMON NORMALS: no acute distress GENERAL APPEARANCE: disheveled ORIENTATION/CONSCIOUSNESS: Yes oriented to person and Yes oriented to place; not oriented to time OTHER: Poor historian HENMT: COMMON NORMALS: oropharynx normal Neck/C-Spine: COMMON NORMALS: no JVD Resp: COMMON NORMALS: normal respiratory effort and clear to auscultation bilaterally AUSCULTATION: clear to auscultation bilaterally and diminished lung sounds Cardio: COMMON NORMALS: no JVD, regular rhythm, S1 normal heart sound present, S2 normal heart sound present and No murmurs present (Cardio) RHYTHM: regular rhythm HEART SOUNDS: S1 normal heart sound present and S2 normal heart sound present GI: COMMON NORMALS: Normal to inspection, nondistended, normoactive bowel sounds present, Soft to palpation and non-tender PALPATION: Yes Soft to palpation Extremity: COMMON NORMALS: no joint enlargement GENERAL: Yes edema Neuro: SENSORIUM/ORIENTATION: Yes oriented to person, Yes oriented to place and No oriented to time OTHER: Generally weak, worse in lower extremities, cannot lift them against gravity with some effort. Skin: OTHER: Sacrum laterally to the left of sacrum horizontal 3 x 6 cm irregularly shaped ulceration with some maceration, moisture damage, no undermining or tunneling, minimal subcutaneous tissue exposure. No necrosis. Mild surrounding erythema. Left upper pelvis/flank pain, horizontal, 0.5 cm x 10 cm wound healing from prior, but with a strip of necrotic eschar in the wound bed. Multiple shallow ulcerations/excoriations on her feet, 2 skin tears on lateral left calf Urinary Catheter Management^: Santos: Cath Placed During This Visit: yes Reason for Continuing Indwelling Catheter: Assist healing open wound Urinary Catheter Date of Insertion: 04/26/21 Urinary Catheter Time of Insertion: 12:00 Data : 04/28/21 04:55 04/28/21 04:55 Micro: Microbiology 04/27/21 11:48 Ova and Parasite Concentrate Exam - Final Stool 04/28/21 14:09 Enteric Pathogens (PCR) - Final Stool Parasite Antigen Panel - Final C.difficile Toxin B Gene (PCR) - Final 04/27/21 15:17 Urine Culture - Final Urine,Clean Catch A&P Assessment and plan (1) Weakness: Stable, improving, fall precautions, PT/OT consult Status: Acute (2) Failure to thrive: Acute on chronic Status: Chronic Qualifiers: Failure to thrive age range: in adult Qualified Code(s): R62.7 - Adult failure to thrive (3) Stage II decubitus ulcer: Had to place a Santos due to moisture damage to the sacral wound. She urinates and defecates on herself. For sacral wound, keep dry. Zinc oxide. Covaderm. Abx The wound on on left flank with strip of necrotic eschar in the bed - Santyl, Covaderm. Encourage nutrition. Added Ensure Plus. Status: Acute Qualifiers: Pressure injury location: contiguous region involving back and hip Laterality: left Qualified Code(s): L89.42 - Pressure ulcer of contiguous site of back, buttock and hip, stage 2 (4) Cellulitis: Discharged home on Augmentin for cellulitis 04/22/2021, appears improved Status: Acute Qualifiers: Site of cellulitis: extremity Site of cellulitis of extremity: lower extremity Laterality: right Qualified Code(s): L03.115 - Cellulitis of right lower limb (5) COPD (chronic obstructive pulmonary disease): Status: Acute Qualifiers: COPD type: unspecified COPD Qualified Code(s): J44.9 - Chronic obstructive pulmonary disease, unspecified (6) Dementia: Status: Chronic Qualifiers: Dementia type: unspecified type Dementia behavioral disturbance: with behavioral disturbance Qualified Code(s): F03.91 - Unspecified dementia with behavioral disturbance Additional A&P Information Possible pneumonia: With worsened leukocytosis, shortness of breath on admission. Leukocytosis now improved. On room air. Generalized weakness. Continue vancomycin and Zosyn at this time. Monitor for symptom changes. Leg weakness: Obtain CT thoracic lumbar spine. Lumbar spine with kyphoscoliosis with L4 and L5 fusion and 6 lumbar vertebral body. Severe L5-6 neuroforaminal stenosis. Radiculopathy likely responsible for the sensorimotor abnormalities. Thoracic spine CT unremarkable. Pain control, lidocaine patch, Tylenol. Mobilize with PT, OT. gradual improvement. Failure to thrive, poor social support CM/SW on board Plan for the day: Continue wound care and Zosyn. Day 5 today. Campylobacter. Mechanical soft diet. Replace K Discharge planning. Attestations Medical Necessity Statement*: Continue hospitalization for management of diarrhea, wound care, and Time Spent in Patient Care: Greater than 35 minutes (>than 50% of time spent in counselling and/or direct pt care on unit). 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
[2021-04-29] MEDS: atorvastatin 40 mg Tablet PO (20:19)
[2021-04-30] VITALS (8 sets, daily range): BP systolic 104–162; BP diastolic 58–76; PULSE 67–76; RESP 16–161; TEMP 36.5–37; O2SAT 95–97
[2021-04-30] MEDS: piperacillin-tazobactam 3.375 GM in sodium chloride 0.9% (plus) 50 ML IV ×3 (02:38→18:10)
[2021-04-30 02:39] LABS: Basophils % 0.2 %; Eosinophils % 0.2 %; Hematocrit 26.3 % (37.0-47.0); Hemoglobin 8.2 g/dL (11.5-15.3); Lymphocytes # 0.5 10^3/uL (0.8-4.8); Lymphocytes % 8.5 %; Mean Corpuscular HGB Conc 31.2 g/dL (30.0-36.0); Mean Corpuscular Hemoglobin 30.4 pg (28.0-34.0); Mean Corpuscular Volume 97.4 fl (81-99); Mean Platelet Volume 9.9 fL (7.4-10.4); Monocytes # 0.5 10^3/uL (0.2-0.9); Monocytes % 8.5 %; Neutrophils # 4.45 10^3/uL (1.8-7.7); Neutrophils % 81.9 %; Nucleated Red Blood Cells % 0 %; Platelet Count 203 10^3/cmm (130-400); Red Cell Distribution Width 15.6 % (12.1-15.1); White Blood Count 5.4 10^3/uL (4.0-10.0)
[2021-04-30 03:08] LABS: Alanine Aminotransferase 64 U/L (0-33); Albumin Level 2.8 g/dL (3.5-5.2); Alkaline Phosphatase 93 IU/L (35-105); Anion Gap 10.7 (5-19); Aspartate Amino Transferase 81 U/L (0-32); Blood Urea Nitrogen 14 mg/dL (8-23); Calcium 8.3 mg/dL (8.5-10.5); Carbon Dioxide 28 mmol/L (22-29); Chloride 103 mmol/L (98-107); Globulin 2.8 g/dL (1.3-4.6); Glucose 114 mg/dL (65-115); Osmolality Calculated 289 mOsm/kg (285-295); Sodium 139 mmol/L (136-145); Total Bilirubin 0.3 mg/dL (0.15-1.2); Total Protein 5.6 g/dL (6.6-8.7)
[2021-04-30 03:15] LABS: Potassium 2.7 mmol/L (3.5-5.1)
--- NOTE | 2021-04-30 03:29 | PC.NURSE ---
This nurse called Dr. Basilio with a critical potassium of 2.7, received n/o for 40 meq PO and add a magnesium level to her morning labs.
[2021-04-30 03:32] LABS: Procalcitonin 0.18 ng/mL (0-0.5)
[2021-04-30] MEDS: potassium chloride ER 20 mEq Tablet 40 MEQ PO (03:37)
[2021-04-30 03:51] LABS: Magnesium 1.9 mg/dL (1.7-2.3)
[2021-04-30] MEDS: albuterol 8 gm MDI 2 PUFF INHALATION (07:58)
[2021-04-30] MEDS: enoxaparin 40 mg/0.4 mL Syringe SUBCUT (08:19)
[2021-04-30] MEDS: sertraline 100 mg Tablet 200 MG PO (08:19)
[2021-04-30] MEDS: pantoprazole DR 40 mg Tablet PO (08:19)
[2021-04-30] MEDS: aspirin 81 mg EC Tablet PO (08:19)
[2021-04-30] MEDS: lidocaine 5% Patch 1 PATCH TOPICAL (08:24)
[2021-04-30] MEDS: collagenase oint 30 gm 1 APPLIC TOPICAL (12:01)
--- NOTE | 2021-04-30 17:02 | PM.PN ---
Subjective Subjective: Interval history: Condition multiple episodes of watery diarrhea. Medications: Reviewed: Yes Vitals/I&O/Wt Last Vital Signs Temp 97.8 F 04/30/21 20:00 Pulse 70 04/30/21 20:33 Resp 18 04/30/21 20:31 BP 112/67 04/30/21 20:00 Pulse Ox 96 04/30/21 20:31 04/30/21 04/30/21 05/01/21 14:59 22:59 06:59 Intake Total 720 / 720 100 / 820 Balance 720 / 720 100 / 820 Physical Exam Const: COMMON NORMALS: no acute distress GENERAL APPEARANCE: disheveled ORIENTATION/CONSCIOUSNESS: Yes oriented to person and Yes oriented to place; not oriented to time OTHER: Poor historian HENMT: COMMON NORMALS: oropharynx normal Neck/C-Spine: COMMON NORMALS: no JVD Resp: COMMON NORMALS: normal respiratory effort and clear to auscultation bilaterally AUSCULTATION: clear to auscultation bilaterally and diminished lung sounds Cardio: COMMON NORMALS: no JVD, regular rhythm, S1 normal heart sound present, S2 normal heart sound present and No murmurs present (Cardio) RHYTHM: regular rhythm HEART SOUNDS: S1 normal heart sound present and S2 normal heart sound present GI: COMMON NORMALS: Normal to inspection, nondistended, normoactive bowel sounds present, Soft to palpation and non-tender PALPATION: Yes Soft to palpation Extremity: COMMON NORMALS: no joint enlargement GENERAL: Yes edema Neuro: SENSORIUM/ORIENTATION: Yes oriented to person, Yes oriented to place and No oriented to time OTHER: Generally weak, worse in lower extremities, cannot lift them against gravity with some effort. Skin: OTHER: Sacrum laterally to the left of sacrum horizontal 3 x 6 cm irregularly shaped ulceration with some maceration, moisture damage, no undermining or tunneling, minimal subcutaneous tissue exposure. No necrosis. Mild surrounding erythema. Left upper pelvis/flank pain, horizontal, 0.5 cm x 10 cm wound healing from prior, but with a strip of necrotic eschar in the wound bed. Multiple shallow ulcerations/excoriations on her feet, 2 skin tears on lateral left calf Urinary Catheter Management^: Santos: Cath Placed During This Visit: yes Reason for Continuing Indwelling Catheter: Assist healing open wound Urinary Catheter Date of Insertion: 04/26/21 Urinary Catheter Time of Insertion: 12:00 Data : 04/30/21 02:02 04/30/21 21:07 Micro: Microbiology 04/25/21 09:50 Blood Culture - Final Blood NO GROWTH AFTER 5 DAYS 04/25/21 09:48 Blood Culture - Final Blood NO GROWTH AFTER 5 DAYS A&P Assessment and plan (1) Weakness: Stable, improving, fall precautions, PT/OT consult Status: Acute (2) Failure to thrive: Acute on chronic Status: Chronic Qualifiers: Failure to thrive age range: in adult Qualified Code(s): R62.7 - Adult failure to thrive (3) Stage II decubitus ulcer: Had to place a Santos due to moisture damage to the sacral wound. She urinates and defecates on herself. For sacral wound, keep dry. Zinc oxide. Covaderm. Abx The wound on on left flank with strip of necrotic eschar in the bed - Santyl, Covaderm. Encourage nutrition. Added Ensure Plus. Status: Acute Qualifiers: Pressure injury location: contiguous region involving back and hip Laterality: left Qualified Code(s): L89.42 - Pressure ulcer of contiguous site of back, buttock and hip, stage 2 (4) Cellulitis: Discharged home on Augmentin for cellulitis 04/22/2021, appears improved Status: Acute Qualifiers: Site of cellulitis: extremity Site of cellulitis of extremity: lower extremity Laterality: right Qualified Code(s): L03.115 - Cellulitis of right lower limb (5) COPD (chronic obstructive pulmonary disease): Status: Acute Qualifiers: COPD type: unspecified COPD Qualified Code(s): J44.9 - Chronic obstructive pulmonary disease, unspecified (6) Dementia: Status: Chronic Qualifiers: Dementia type: unspecified type Dementia behavioral disturbance: with behavioral disturbance Qualified Code(s): F03.91 - Unspecified dementia with behavioral disturbance Additional A&P Information Hyperkalemia -K 2.8 -Replace -BMP in am Leg weakness: CT thoracic lumbar spine. Lumbar spine with kyphoscoliosis with L4 and L5 fusion and 6 lumbar vertebral body. Severe L5-6 neuroforaminal stenosis. Radiculopathy likely responsible for the sensorimotor abnormalities. Thoracic spine CT unremarkable. Pain control, lidocaine patch, Tylenol. Mobilize with PT, OT. gradual improvement. Failure to thrive, poor social support CM/SW on board Plan for the day: Continue wound care and Zosyn. Day 6/7 - If diarrhea continues d/c abx Campylobacter. Mechanical soft diet. Replace K Discharge planning. Attestations Medical Necessity Statement*: Will require further hospitalization for management of diarrhea, hypokalemia. Time Spent in Patient Care: Greater than 35 minutes Coding Level of Care Code Acute Bookstore Manager for g Fwd Diagnoses Weakness R53.1 Failure to thrive R62.7 Failure to thrive age range: in adult Stage II decubitus ulcer L89.42 Pressure injury location: contiguous region involving back and hip Laterality: left Cellulitis L03.115 Site of cellulitis: extremity Site of cellulitis of extremity: lower extremity Laterality: right COPD (chronic obstructive pulmonary disease) J44.9 COPD type: unspecified COPD Dementia F03.91 Dementia type: unspecified type Dementia behavioral disturbance: with behavioral disturbance
[2021-04-30] MEDS: atorvastatin 40 mg Tablet PO (21:38)
[2021-04-30 21:49] LABS: Potassium 2.8 mmol/L (3.5-5.1)
--- NOTE | 2021-04-30 22:20 | PC.NURSE ---
Received N/o for potassium 40meq IV d/t critical potassium of 2.8, and N/O for IV magnesium sulfate, per Dr. Basilio.
[2021-05-01] VITALS: BP 101/64; PULSE 67; RESP 18; TEMP 36.8; O2SAT 95
[2021-05-01] MEDS: sodium chloride 0.9% 500 ML 100 ML IV (03:20)
[2021-05-01] MEDS: piperacillin-tazobactam 3.375 GM in sodium chloride 0.9% (plus) 50 ML IV (03:39)
[2021-05-01 04:00] VITALS: BP 110/69; PULSE 68; RESP 16; TEMP 36.8; O2SAT 95
[2021-05-01 04:59] LABS: Basophils % 0.2 %; Eosinophils % 0.2 %; Hematocrit 25.4 % (37.0-47.0); Hemoglobin 7.9 g/dL (11.5-15.3); Lymphocytes # 0.7 10^3/uL (0.8-4.8); Lymphocytes % 16.7 %; Mean Corpuscular HGB Conc 31.1 g/dL (30.0-36.0); Mean Corpuscular Hemoglobin 30.2 pg (28.0-34.0); Mean Corpuscular Volume 96.9 fl (81-99); Mean Platelet Volume 9.9 fL (7.4-10.4); Monocytes # 0.4 10^3/uL (0.2-0.9); Monocytes % 8.4 %; Nucleated Red Blood Cells % 0 %; Platelet Count 227 10^3/cmm (130-400); Red Blood Count 2.62 10^6/uL (4.1-5.3); Red Cell Distribution Width 15.7 % (12.1-15.1); White Blood Count 4.2 10^3/uL (4.0-10.0)
[2021-05-01 05:23] LABS: Alanine Aminotransferase 71 U/L (0-33); Albumin Level 2.9 g/dL (3.5-5.2); Alkaline Phosphatase 88 IU/L (35-105); Anion Gap 13.2 (5-19); Aspartate Amino Transferase 85 U/L (0-32); Blood Urea Nitrogen 10 mg/dL (8-23); Calcium 7.8 mg/dL (8.5-10.5); Carbon Dioxide 26 mmol/L (22-29); Chloride 104 mmol/L (98-107); Globulin 2.5 g/dL (1.3-4.6); Glucose 93 mg/dL (65-115); Magnesium 2.2 mg/dL (1.7-2.3); Osmolality Calculated 289 mOsm/kg (285-295); Potassium 3.2 mmol/L (3.5-5.1); Sodium 140 mmol/L (136-145); Total Bilirubin 0.3 mg/dL (0.15-1.2); Total Protein 5.4 g/dL (6.6-8.7)
[2021-05-01 05:33] LABS: Vancomycin Trough < 4.0 ug/mL (10-15)
[2021-05-01 05:36] LABS: Procalcitonin 0.15 ng/mL (0-0.5)
[2021-05-01 07:35] VITALS: BP 112/70; PULSE 74; RESP 16; TEMP 36.9; O2SAT 95
[2021-05-01 08:11] VITALS: PULSE 68; RESP 18; O2SAT 96
[2021-05-01] MEDS: albuterol 8 gm MDI 2 PUFF INHALATION (08:11)
[2021-05-01] MEDS: aspirin 81 mg EC Tablet PO (09:30)
[2021-05-01] MEDS: pantoprazole DR 40 mg Tablet PO (09:30)
[2021-05-01] MEDS: sertraline 100 mg Tablet 200 MG PO (09:30)
[2021-05-01] MEDS: enoxaparin 40 mg/0.4 mL Syringe SUBCUT (09:30)
[2021-05-01] MEDS: lidocaine 5% Patch 1 PATCH TOPICAL (09:30)
[2021-05-01] MEDS: collagenase oint 30 gm 1 APPLIC TOPICAL (09:30)
--- NOTE | 2021-05-01 10:52 | PM.DCS ---
Discharge Providers Date of Admission: 04/25/21 21:40 Date of Discharge: May 01, 2021 Attending Provider at Admission: Amber Bowman MD Attending Provider at Discharge: Aguilar Oconnor MD Diagnoses at Discharge Discharge Diagnosis (1) Weakness: Status: Acute (2) Failure to thrive: Status: Chronic Qualifiers: Failure to thrive age range: in adult Qualified Code(s): R62.7 - Adult failure to thrive (3) Stage II decubitus ulcer: Status: Acute Qualifiers: Laterality: left Pressure injury location: contiguous region involving back and hip Qualified Code(s): L89.42 - Pressure ulcer of contiguous site of back, buttock and hip, stage 2 (4) Cellulitis: Status: Acute Qualifiers: Laterality: right Site of cellulitis: extremity Site of cellulitis of extremity: lower extremity Qualified Code(s): L03.115 - Cellulitis of right lower limb (5) COPD (chronic obstructive pulmonary disease): Status: Acute Qualifiers: COPD type: unspecified COPD Qualified Code(s): J44.9 - Chronic obstructive pulmonary disease, unspecified (6) Dementia: Status: Chronic Qualifiers: Dementia behavioral disturbance: with behavioral disturbance Dementia type: unspecified type Qualified Code(s): F03.91 - Unspecified dementia with behavioral disturbance Reason for Visit Reason for Visit: weakness in bilateral legs Hospital Course Hospital Course Zuleima Morejon is a 70 year old female who was discharged from the hospital within the last 24 hours or so. She had been hospitalized at this most recent time due to being found on the floor and having pain in her right thigh area. She had some mild rhabdomyolysis, cellulitis in the right thigh and was ultimately found to have a decubitus ulcer posteriorly on the left. Recommendations had been for disposition to skilled facility but she ultimately ended up going home.she was brought in by the ems this time was because she could not care for herself. Per EMS she had urine soaked clothing and bugs crawling on her. She was admitted for management of weakness, failure to thrive , progressively worsening dementia, Stage II decubitus ulcer, Leg weakness. She was continued with physical therapy,for her Leg weakness: CT thoracic lumbar spine. Lumbar spine with kyphoscoliosis with L4 and L5 fusion and 6 lumbar vertebral body. Severe L5-6 neuroforaminal stenosis. Radiculopathy likely responsible for the sensorimotor abnormalities. Thoracic spine CT unremarkable. Pain control, lidocaine patch, Tylenol. Mobilize with PT, OT. gradual improvement. For decubitus ulcer wound care was continued, she was continued on Santyl, empirically she was on broad-spectrum antibiotics. During the hospital stay she also started having diarrhea, C. difficile was negative, Campylobacter was found in stool studies. At the time of discharge diarrhea was improving. For cellulitis on the last admission she was on discharge Augmentin, during this hospital stay she was continued on Zosyn.She was not discharged on antibiotics, For COPD conservative respiratory management, was not in exacerbation, was continued on albuterol sulfate Inhalers. Patient responded well to the above medical management, and was discharged in stable condition to home. Physical Exam Narrative: EXAM NARRATIVE: Alert awake not in acute distress HENMT: COMMON NORMALS: normocephalic and atraumatic HEAD & SCALP: normocephalic and atraumatic Resp: COMMON NORMALS: clear to auscultation bilaterally EFFORT & INSPECTION: Yes symmetric chest movement AUSCULTATION: clear to auscultation bilaterally Cardio: COMMON NORMALS: regular rate, regular rhythm, S1 normal heart sound present, S2 normal heart sound present, No gallops present (Cardio), No murmurs present (Cardio), No rub (Cardio) and Peripheral pulses 2+ throughout RATE: regular rate RHYTHM: regular rhythm HEART SOUNDS: S1 normal heart sound present and S2 normal heart sound present PERIPHERAL PULSES: Peripheral pulses 2+ throughout GI: COMMON NORMALS: Normal to inspection, nondistended, normoactive bowel sounds present, Soft to palpation, non-tender, No hepatosplenomegaly present and no masses AUSCULTATION: Yes normoactive bowel sounds PALPATION: Yes Soft to palpation and Yes No hepatosplenomegaly present RECTAL EXAM: deferred Extremity: COMMON NORMALS: no clubbing, cyanosis or edema and no pedal edema Skin: NARRATIVE SKIN EXAM: Sacrum laterally to the left : horizontal 3 x 6 cm irregularly shaped ulceration with some maceration, no undermining or tunneling, minimal subcutaneous tissue exposure. Mild surrounding erythema. Left upper pelvis/flank pain, horizontal, 0.5 cm x 10 cm wound healing from prior, but with a strip of necrotic eschar in the wound bed. Multiple shallow ulcerations/excoriations on her feet, 2 skin tears on lateral left calf Urinary Catheter Management^: Santos: Cath Placed During This Visit: yes Reason for Continuing Indwelling Catheter: Assist Healing of Perineal & Sacral Wounds- Incontinent Patients Urinary Catheter Date of Insertion: 04/26/21 Urinary Catheter Time of Insertion: 12:00 Discharge Data Data Completed and Pending: Completed Studies During Hospitalization Category Date Time Status CT lumbar spine w o con* [id number] Routi ne Cat Scan 04/25/21 21:[address] thoracic spin wo con* [id number] Rout ine Cat Scan 04/25/21 21:30 Completed XR chest 1V mayelin ble [id number] Urgent Exams 04/24/21 20:27 Completed OVA and Parasites , Conc and PE Rout ine Lab 04/27/21 11:48 Completed Labs from last 24 hours 05/01/21 05/01/21 05/01/21 04:49 04:49 04:49 WBC RBC Hgb Hct MCV MCH MCHC RDW Plt Count MPV Neut % (Auto) Lymph % (Auto) [place] % (Auto) Eos % (Auto) Baso % (Auto) Neut # (Auto) Lymph # (Auto) [place] # (Auto) Eos # (Auto) Baso # (Auto) Nucleated RBC % (a uto) Nucleated RBCs # Sodium 140 Potassium 3.2 L Chloride 104 Carbon Dioxide 26 Anion Gap 13.2 BUN 10 Creatinine 0.5 GFR Calculation Not Reportable Glucose 93 Calculated Osmolal ity 289 Calcium 7.8 L Magnesium 2.2 Total Bilirubin 0.3 AST 85 H ALT 71 H Alkaline Phosphata se 88 Total Protein 5.4 L Albumin 2.9 L Globulin 2.5 Procalcitonin 0.15 Vancomycin Trough < 4.0 L 05/01/21 04/30/21 04:49 21:07 WBC 4.2 RBC 2.62 L Hgb 7.9 L Hct 25.4 L MCV 96.9 MCH 30.2 MCHC 31.1 RDW 15.7 H Plt Count 227 MPV 9.9 Neut % (Auto) 74.0 Lymph % (Auto) 16.7 [place] % (Auto) 8.4 Eos % (Auto) 0.2 Baso % (Auto) 0.2 Neut # (Auto) 3.10 Lymph # (Auto) 0.7 L [place] # (Auto) 0.4 Eos # (Auto) 0.0 Baso # (Auto) 0.0 Nucleated RBC % (a uto) 0 Nucleated RBCs # 0.0 Sodium Potassium 2.8 L* Chloride Carbon Dioxide Anion Gap BUN Creatinine GFR Calculation Glucose Calculated Osmolal ity Calcium Magnesium Total Bilirubin AST ALT Alkaline Phosphata se Total Protein Albumin Globulin Procalcitonin Vancomycin Trough Vitals: Last Vital Signs Temp 98.5 F 05/01/21 07:35 Pulse 68 05/01/21 08:11 Resp 18 05/01/21 08:11 BP 112/70 05/01/21 07:35 Pulse Ox 96 05/01/21 08:11 Discharge Plan Discharge Patient Disposition: Home Condition: Stable Prescriptions: New Tylenol 325 mg tablet 325 mg PO Q6H PRN (Reason: pain) Qty: 14 RF: 0 Continued albuterol sulfate [ProAir HFA] 90 mcg/actuation HFA aerosol inhaler 2 puff INHALATION Q4H PRN (Reason: shortness of breath or wheezing) 90 Days Qty: 3 RF: 1 budesonide-formoterol [Symbicort] 160-4.5 mcg/actuation HFA aerosol inhaler 2 puff INHALATION BID 90 Days Qty: 3 RF: 1 famotidine 20 mg tablet 20 mg PO DAILY 90 Days Qty: 90 RF: 1 sertraline [Zoloft] 100 mg tablet 200 mg PO DAILY 90 Days Qty: 180 RF: 1 Santyl 250 unit/gram Ointment 1 applic topical DAILY 14 Days Qty: 30 RF: 0 (DME) CAM WALKER See Rx Instructions .ROUTE .MEDSUPPLY Qty: 1 RF: 0 atorvastatin 40 mg Tablet 40 mg PO BEDTIME 30 Days Qty: 30 RF: 0 aspirin 81 mg Tablet,Delayed Release (Dr/Ec) 81 mg PO DAILY 30 Days Qty: 30 RF: 0 pantoprazole 40 mg Tablet,Delayed Release (Dr/Ec) 40 mg PO DAILY 30 Days Qty: 30 RF: 0 Discontinued amoxicillin-pot clavulanate [Augmentin] 875-125 mg tablet 1 tab PO BID 7 Days Qty: 14 RF: 0 Discharge Orders: Discharge Order (Routine); Ordered 05/01/21 Ordered By: Aguilar Oconnor Other Ambulatory Orders: DME: Wheelchair (Order) Location: None Selected Ordered By: Philip Rossi Referrals: [facility] [Other] ([facility] has accepted you. They will be calling you to schedule an appointment once you return home. They will reach out within 2 business days of return home.) Nadia, GONZALO [Nurse Practitioner] - 4-7 days (Please call Ms. Altamirano's office to schedule a Telehealth visit once patient has been discharged. She will need to be seen within 4-7 days. Mrs. Altamirano is willing to follow for home health until Zuleima can be established with local provider in [place] as long as she will do the follow up appointments via telehealth. ) Discharge Diet: Soft Mechanical Discharge Activity: Increase activity as tolerated Patient Instructions: Acetaminophen (By mouth) (Acetaminophen Children's, Acetaminophen..., COPD (Chronic Obstructive Pulmonary Disease) (DC), COPD Stoplight, Opioid Safety Discharge Attestations Time Spent in Discharge Care*: less than 30 min Specific Discharge Activities: educating patient, educating and/or supporting family/caregiver, discussing with major case detective/social workers/dc planners, documenting/other paperwork and evaluating patient/reviewing data Status at Discharge: Cognitive status at discharge: moderately impaired cognition, Behavioral status at discharge: cooperative, Quality Metrics Clinical Quality Measures During this hospital stay, did patient experience: None Coding Level of Care Code Acute Chg FW DC note Diagnoses Weakness R53.1 Failure to thrive R62.7 Failure to thrive age range: in adult Stage II decubitus ulcer L89.42 Laterality: left Pressure injury location: contiguous region involving back and hip Cellulitis L03.115 Laterality: right Site of cellulitis: extremity Site of cellulitis of extremity: lower extremity COPD (chronic obstructive pulmonary disease) J44.9 COPD type: unspecified COPD Dementia F03.91 Dementia behavioral disturbance: with behavioral disturbance Dementia type: unspecified type
[2021-05-01] MEDS: ondansetron 2 mg/ML SDV 2 mL 4 MG IVP (11:02)
[2021-05-01 11:32] VITALS: BP 102/68; PULSE 71; RESP 16; TEMP 36.8; O2SAT 96
--- NOTE | 2021-05-01 15:12 | PC.NURSE ---
Spoke with about hernandez being in place and order received to d/c catheter and discharge patient.
== END 2021-05-01 14:30 | disposition home or self-care (01) | DRG 593 ==
LOC: ER 04-25 04:29 → MEDSURG 04-25 08:18
PROVIDERS: Hospitalist; Internal Medicine; Student in an Organized Health Care Education/Training Program; Admitting Provider Hospitalist; Emergency Provider Emergency Medicine; Visit Provider Internal Medicine
DX: L89.42 Pressure ulcer of contiguous site of back, buttock and hip, stage 2 (principal); L03.115 Cellulitis of right lower limb; F03.91 Unspecified dementia, unspecified severity, with behavioral disturbance; M62.82 Rhabdomyolysis; A04.5 Campylobacter enteritis; R53.1 Weakness; R62.7 Adult failure to thrive; R26.2 Difficulty in walking, not elsewhere classified; E87.6 Hypokalemia; M48.062 Spinal stenosis, lumbar region with neurogenic claudication; M54.16 Radiculopathy, lumbar region; M41.9 Scoliosis, unspecified; R15.9 Full incontinence of feces; R32 Unspecified urinary incontinence; I10 Essential (primary) hypertension; J44.9 Chronic obstructive pulmonary disease, unspecified; E78.5 Hyperlipidemia, unspecified; F41.9 Anxiety disorder, unspecified; F32.A Depression, unspecified; Z63.8 Other specified problems related to primary support group; Z87.891 Personal history of nicotine dependence
CPT/HCPCS: 36415; 51702; 71045; 72128; 72131; 80053; 80202; 81001; 81003; 83605; 83735; 84100; 84132; 84145; 85025; 86140; 87040; 87086; 87177; 87209; 87493; 87506; 94640; 96365; 96372; 96375; 97110; 97116; 97164; 97166; 97530; 97535; 99285; G0378; J1650; J2405; J2543; J3010; J3370; J3475; J7030; J7040; J7050